=== PATIENT | male | born 1950 | race Caucasian/White ===

== ENCOUNTER 2021-08-21 14:27 | Inpatient (IN) | payer MEDICARE, MEDICAID, SELFPAY ==
[2021-08-21] VITALS (10 sets, daily range): BP systolic 118–149; BP diastolic 50–58; PULSE 75–91; RESP 17–26; TEMP 36.6–37.1; O2SAT 97–100; BMI 28.2
--- NOTE | ~2021-08-21 | XR_ITS ---
EXAMINATION: XR KNEE, LEFT CLINICAL INFORMATION: Evaluate for fracture. COMPARISON: None TECHNIQUE: Four views of the left knee. FINDINGS: No acute fractures or malalignment. Moderate tricompartmental degenerative osteoarthritis with joint space narrowing, subcortical sclerosis and osteophytes more notable in the medial and patellofemoral compartments. Small joint effusion with soft tissue swelling in the anterior and medial surface of the knee. No unexpected foreign bodies. XR/XR knee LT 4V IMPRESSION: No acute fractures or malalignment. Small joint effusion with soft tissue swelling in the medial and anterior surfaces of the knee. Moderate tricompartmental degenerative osteoarthritis.
--- NOTE | ~2021-08-21 | CT_ITS ---
EXAMINATION: HEAD CT WITHOUT CONTRAST CERVICAL SPINE CT WITHOUT CONTRAST CLINICAL INFORMATION: Fall, on blood thinners. COMPARISON: None. TECHNIQUE: Contiguous axial imaging of the head was performed without the administration of IV contrast. Axial multidetector volumetric images were also performed through the cervical spine without contrast. Multiplanar reconstructed images in coronal and sagittal orientations were submitted. DOSE: 1219 mGy-cm FINDINGS: HEAD: There is no evidence of acute intracranial hemorrhage or territorial infarction. No abnormal mass-effect or midline shift. No extra-axial fluid collections. [place] to white matter differentiation is well preserved. Proportional sulcal and ventricular prominence. Mild to moderate patchy periventricular and deep white matter hypodensities suggesting chronic microangiopathic changes. No acute fractures seen. There is complete opacification of the right maxillary sinus, prominent opacification of bilateral ethmoid and right sphenoid sinus. Mucosal thickening in the left sphenoid sinus. Partial opacification of the right mastoid air cells. There is opacification some of the left mastoid air cells. Limited evaluation of the facial bones, motion artifact degrading images. CERVICAL SPINE: Leftward curvature of the cervical spine. There is increased lordotic curvature of the cervical spine. Motion artifact degrading some of these images. There is mild anterolisthesis of C2 on C3. Within the limitation of motion degraded study, no obvious fracture is identified. Cervical spondylosis present, with the more prominent changes of severe disc degeneration at C2-C3, C3-C4, C4-C5 and C6-C7. Multilevel facet degeneration. Bilateral apical pleural parenchymal scarring. See chest CT for further details.. CT/CT cervical spine wo con IMPRESSION: 1. No CT evidence of acute intracranial hemorrhage or territorial infarction. 2. Extensive sinus disease, especially involving the right maxillary, ethmoid and right sphenoid sinuses. Partial opacification of mastoid air cells. 3. Limited evaluation of the visualized facial bone due to motion artifact. Dedicated facial bone CT for further evaluation as clinically warranted. 4. No CT evidence of acute cervical fracture. 5.Extensive cervical spondylosis. Multilevel severe disc degeneration.
--- NOTE | ~2021-08-21 | CT_ITS ---
EXAMINATION: CT CHEST, ABDOMEN AND PELVIS WITH CONTRAST. CLINICAL INFORMATION: Fall. COMPARISON: No pertinent prior studies are available for comparison. TECHNIQUE: Multidetector volumetric imaging was performed from the thoracic inlet through the pubic symphysis following administration of 85 mL of Omnipaque 350. Sagittal and coronal reformatted images were obtained on the technologist's workstation. This CT examination was performed using dose optimization techniques as appropriate, variously including the following: *Automated exposure control *Adjustment of mA and/or kV according to patient size (this includes techniques or standardized protocols for targeted exams where dose is matched to indication/reason for exam; i.e. extremities or head) *Use of iterative reconstruction technique DLP: 672 mGy-cm FINDINGS: CHEST: Lung: Emphysematous background with more prominent paraseptal blebs anteriorly in the left upper lobe (7:269). Bronchial wall thickening, tree-in-bud opacities, mucous plugging and scattered groundglass opacities predominantly in the lower lungs. For instance, a group of tree-in-bud nodularities in the right lung base on image 298 of series 7 and a few areas of groundglass opacities in the right middle lobe on image 315 of series 7. There are also bronchiectasis in the left lung base, for instance image 381 of series 7. Scattered calcified granulomas. Biapical subpleural thickening/scarring more notable in the anterior right upper lobe where there is a subpleural nodularity that measures up to 1.2 cm in thickness (7:88). The central airways are patent. Mediastinum: Normal heart size. No pericardial effusion. No mediastinal or hilar lymphadenopathy. Normal appearance of the thyroid gland. No mediastinal hematoma. Pericardium/Pleura: No pleural effusion or pneumothorax. Chest Wall/Axilla: No chest wall mass or axillary lymphadenopathy by size criteria. ABDOMEN/PELVIS: Peritoneal Space: No free air or free fluid. Liver, Gallbladder, Biliary Tree: The liver is normal in size, shape, and attenuation. No focal hepatic lesion or biliary ductal dilatation is present. The gallbladder is unremarkable with no evidence of radiopaque gallstones, gallbladder wall thickening, or obvious pericholecystic inflammatory changes. Pancreas: Unremarkable. Spleen: Unremarkable. Adrenal Glands: Unremarkable. Kidneys and Ureters: The kidneys are normal in size, shape, and attenuation. No hydronephrosis, hydroureter, or calculi seen. No perinephric stranding. Bladder: Unremarkable. Gastrointestinal Tract: Moderate size hiatal hernia with circumferential thickening of the lower esophagus suggesting some degree of reflux esophagitis. There are a few prominent lymph nodes surrounding the hiatal hernia. The stomach and the small bowel are nondilated. Normal appendix. Sigmoid diverticulosis but no evidence of acute diverticulitis. No bowel obstruction. Abdominal Wall: Small bilateral fat-containing inguinal hernias and small fat-containing umbilical hernia. Lymphovascular Structures: No lymphadenopathy by size criteria. The aorta is unremarkable except for scattered atherosclerotic disease. Pelvic Viscera: Prostatomegaly. Osseus Structures: No acute or aggressive osseous findings. Thoracolumbar spondylosis. Nonaggressive appearing sclerotic lesion in the left acetabulum (14:564) likely representing a bone island. CT/CT abdomen pelvis w con IMPRESSION: 1. No acute traumatic sequela in the chest, abdomen or pelvis. 2. Bronchial wall thickening, bronchiectasis, mucus plugging, tree-in-bud opacities and scattered groundglass opacities in the lungs suggesting an infectious or inflammatory process of the small airways. Recommend a short-term follow-up to ensure stability or resolution of several of these nodules. 3. Background of emphysematous changes. 4. Moderate size hiatal hernia with circumferential lower esophageal wall thickening and a few prominent periesophageal/perigastric lymph nodes. These findings are likely related with reflux esophagitis, however if indicated correlation with an upper endoscopy could be obtained to rule out underlying lesions. 5. Sigmoid diverticulosis but no evidence of acute diverticulitis. 6. Prostatomegaly.
--- NOTE | ~2021-08-21 | XR_ITS ---
EXAMINATION: X-RAY RIGHT FOREARM X-RAY RIGHT HAND CLINICAL INFORMATION: Evaluate for fracture. COMPARISON: None. TECHNIQUE: 2 views of the right forearm and 3 views of the right hand were obtained. FINDINGS: Right forearm: There is a comminuted distal ulnar fracture with approximately 0.8 cm of medial displacement of the distal fractured fragment and 1.6 cm of impaction. There is mild volar angulation. No other fractures. Joint alignment is maintained. Osteophytes are noted in the articulations of the elbow. There is surrounding soft tissue swelling and scattered vascular calcifications. Right wrist: Redemonstration of a distal ulnar fracture. No other injuries. 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 There is diffuse soft tissue swelling. XR/XR hand RT 2V IMPRESSION: Comminuted, displaced and impacted distal ulnar fracture as above.
--- NOTE | ~2021-08-21 | XR_ITS ---
EXAMINATION: X-RAY RIGHT FOREARM X-RAY RIGHT HAND CLINICAL INFORMATION: Evaluate for fracture. COMPARISON: None. TECHNIQUE: 2 views of the right forearm and 3 views of the right hand were obtained. FINDINGS: Right forearm: There is a comminuted distal ulnar fracture with approximately 0.8 cm of medial displacement of the distal fractured fragment and 1.6 cm of impaction. There is mild volar angulation. No other fractures. Joint alignment is maintained. Osteophytes are noted in the articulations of the elbow. There is surrounding soft tissue swelling and scattered vascular calcifications. Right wrist: Redemonstration of a distal ulnar fracture. No other injuries. 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 There is diffuse soft tissue swelling. XR/XR forearm RT 2V IMPRESSION: Comminuted, displaced and impacted distal ulnar fracture as above.
--- NOTE | 2021-08-21 15:11 | ECG_ITS ---
Test Reason : FALL Blood Pressure : / mmHG Vent. Rate : 086 BPM Atrial Rate : 086 BPM P-R Int : 162 ms QRS Dur : 140 ms QT Int : 404 ms P-R-T Axes : 047 -39 056 degrees QTc Int : 483 ms Normal sinus rhythm Left axis deviation Right bundle branch block Minimal voltage criteria for LVH, may be normal variant ( R in aVL ) Abnormal ECG No previous ECGs available Referred By: Generic ED Physician Electronically Signed By:VANCE VILLEDA MD
[2021-08-21 15:54] LABS: MANUAL DIFF FLAG NO
[2021-08-21 16:00] LABS: INTERNATIONAL NORM RATIO 1.2 (0.9-1.1); Prothrombin Time 13.2 SEC (9.9-13.0)
[2021-08-21 16:04] LABS: Basophils Absolute Auto 0.1 X10*3/uL (0.0-0.2); Basophils Percent Auto 1.2 % (0-2); Eosinophils Percent Auto 12.9 % (0-4); Imm Gran Abs Auto 0.06 X10*3/uL (0.00-0.03); Imm Gran Pct Auto 0.8 % (0.0-0.4); Lymphocytes Absolute Auto 1.1 X10*3/uL (1.2-4.9); Lymphocytes Percent Auto 14.1 % (20-40); Mean Corpuscular HGB Conc 24.6 g/dl (31.0-36.0); Mean Corpuscular Hemoglobin 14.9 pg (27.0-33.0); Mean Platelet Volume 8.6 fL (9.4-12.4); Monocytes Absolute Auto 0.9 X10*3/uL (0.1-1.2); Monocytes Percent Auto 11.7 % (2-11); NRBC Pct Auto 0.7 /100WBC (0.0-0.2); Neutrophils Absolute Auto 4.6 x10*3/uL (2.0-8.3); Neutrophils Percent Auto 59.3 % (45-73); Platelet Count 583 X10*3/uL (160-400); Red Blood Count 3.43 X10*6/uL (4.60-5.80); Red Cell Distribution Width 21.6 % (11.0-16.0); White Blood Count 7.7 X10*3/uL (4.8-10.8)
[2021-08-21 16:07] LABS: Anion Gap 12 (12-20); Blood Urea Nitrogen 11 mg/dL (9-16); Carbon Dioxide 28 mmol/L (22-29); Chloride 103 mmol/L (96-108); Creatinine Clr Calc Pharmacy 72.4; Estimated Glomerular Filt Rate > 60; Glucose Random 106 mg/dL (60-115); Potassium 4.8 mmol/L (3.3-5.1); Sodium 138 mmol/L (135-145)
[2021-08-21 16:13] LABS: Mean Corpuscular Volume 60.3 fL (80.0-98.0)
[2021-08-21 16:14] LABS: Hemoglobin 5.1 g/dl (14.0-18.0)
[2021-08-21 16:15] LABS: Hematocrit 20.7 % (42.0-52.0)
--- NOTE | 2021-08-21 16:50 | PC.NURSE ---
extreme swelling and tenderness left wrist. painful movement. daughter states pt has opiate dependance. pt denies. states hecan't remember all events of fall. may have been on floor for a little while. is tachipnic, pale, [place]. axox3.
[2021-08-21 16:51] LABS: OBS Int Ctl Valid YES; OBS1 NEGATIVE (NEGATIVE)
--- NOTE | 2021-08-21 16:55 | ED.GENADULT ---
HPI - General Adult General Chief complaint: Fall Stated complaint: Fall/r arm pain Time Seen by Provider: 08/21/21 16:19 Source: patient Mode of arrival: ambulatory Limitations: no limitations History of Present Illness HPI narrative: 70-year-old male with past medical history of opiate abuse, atrial fibrillation, and CHF presents to ED for fall. Patient states he tripped and fell Friday and since then has had right arm pain. Patient denies any loss of consciousness. Daughter states patient Eliquis. She states patient at times could be noncompliant with his medication by her mother tries to make patient take his meds Related Data Allergies Allergy/AdvReac Type Severity Reaction Status Date / Time No Known Allergies Allergy Unverified 03/02/20 14:56 Review of Systems Review of Systems: Fall right arm pain Yes all other systems are reviewed and are negative [facility] Social History Social History Alcohol intake: former Patient Tobacco Use Status: Never used Tobacco Use of substances other than those prescribed or required for medical reasons: Yes Substance Use Type: Opiates Advance Directives: Yes Advance Directives on File: Yes Advance Directives Date on File: 08/21/21 Physical Exam ED Vital Signs: Vital Signs - 24 hr 08/21/21 15:07 08/21/21 16:34 08/21/21 18:04 Temperature 98.4 F 98.7 F 98.2 F Pulse Rate 91 84 88 Respiratory Rate 18 18 26 H Blood Pressure 130/51 L 149/58 H 136/51 L Pulse Oximetry 97 100 100 08/21/21 18:15 Temperature 98.2 F Pulse Rate 88 Respiratory Rate 26 H Blood Pressure 136/51 L Pulse Oximetry BMI result Body Mass Index 28.2 Const General: cooperative, healthy appearing, comfortable, no acute distress, well developed and alert Orientation/consciousness: oriented to time and patient oriented x3 HENMT Head: Yes normal to inspection, Yes No palpable skull fracture present, Yes normocephalic, Yes atraumatic and No abrasion Eyes General: appearance normal, both eyes and all related structures Neck Neck: Yes normal visual inspection, Yes full ROM, Yes no lymphadenopathy, Yes no meningeal signs, Yes trachea midline, Yes supple, No anterior neck swelling and No tender Chest Chest palpation & inspection: normal inspection of the chest and normal palpation of entire chest wall Resp Effort & Inspection: normal respiratory effort and able to speak in complete sentences Auscultation: clear to auscultation bilaterally Cardio Jugular venous distension: no JVD Heart sounds: S1 normal heart sound present and S2 normal heart sound present GI Inspection: Yes normal to inspection and No abdominal wall ecchymosis Palpation (GI): Soft to palpation, not firm, nontender, no guarding and not rigid General: No CVA tenderness and Yes no CVA tenderness Back/Spine/Pelvis Back: no CVA tenderness, No CVA tenderness and No back tenderness Skin General skin exam: no rashes or lesions noted and elasticity normal Neuro General: oriented to time, patient oriented x3, gait normal, no meningeal signs and CN's II-XI intact bilaterally Cranial nerves: Yes CN's II-XII intact bilaterally Extrem General: Yes normal to inspection and Yes full ROM Elbow/forearm/wrist images: 1. Positive for tenderness on palpation with slight ecchymosis. Motor exam limited due to pain. Skin is soft and not. Neuro and vascular exam Psych Appearance: grossly normal, well kempt and not disheveled Course Course Course Narrative: Initial labs show hemoglobin of less than 6. Rectal exam negative for black stool, melena, or bright red blood. Type and screen and imaging ordered to rule out any brain bleed, neck fracture, or bleeding in chest/Abdomen. Reevaluation(s) Reevaluation #1: Head CT, cervical spine came back normal. Split ordered for right ulnar fracture. Patient given morphine for pain. Waiting for results of chest CT and abdominal CT. Patient signed consent for blood. Patient presently receiving 2 units of blood. Lasix ordered to be given between red blood cells to prevent fluid overload due to history of CHF. Right hand wrist forearm x-ray shows ulnar came mediated and impacted fracture which is about 4 days old. Patient fell 4 days ago. Case signed out to Dr. Berry. Head CT, cervical spine CT came back normal. PEnding chest/abdomen CT. Paste report from last year admission was received and shows that his hemoglobin hematocrit last year was 8.0/29. EKG negative. Case presented to hospitalist/Dr. Medina for possible admission. Time: 19:27 Medical Decision Making MDM Narrative Medical decision making narrative: Symptomatic anemia. Possible GI Lab Data Result diagrams: 08/21/21 15:38 08/21/21 15:38 Labs: Lab Results 08/21/21 08/21/21 08/21/21 Range/Units 15:38 15:38 15:38 WBC 7.7 (4.8-10.8) X10*3/uL RBC 3.43 L (4.60-5.80) X10*6/uL Hgb 5.1 L* (14.0-18.0) g/dl Hct 20.7 L* (42.0-52.0) % MCV 60.3 L (80.0-98.0) fL MCH 14.9 L (27.0-33.0) pg MCHC 24.6 L (31.0-36.0) g/dl RDW 21.6 H (11.0-16.0) % Plt Count 583 H (160-400) X10*3/uL MPV 8.6 L (9.4-12.4) fL Immature Gran % (Auto) 0.8 H (0.0-0.4) % Neut % (Auto) 59.3 (45-73) % Lymph % (Auto) 14.1 L (20-40) % [place] % (Auto) 11.7 H (2-11) % Eos % (Auto) 12.9 H (0-4) % Baso % (Auto) 1.2 (0-2) % Lymph # (Auto) 1.1 L (1.2-4.9) X10*3/uL [place] # (Auto) 0.9 (0.1-1.2) X10*3/uL Eos # (Auto) 1.0 H (0.0-0.4) X10*3/uL Baso # (Auto) 0.1 (0.0-0.2) X10*3/uL Abs Immat Gran (auto) 0.06 H (0.00-0.03) X10*3/uL Absolute Neuts (auto) 4.6 (2.0-8.3) x10*3/uL Absolute Nucleated RBC 0.050 H (0.0-0.012) X10*3/uL Nucleated RBC % (auto) 0.7 H (0.0-0.2) /100WBC PT 13.2 H (9.9-13.0) SEC INR 1.2 H (0.9-1.1) APTT (24.1-38.0) SEC Sodium 138 (135-145) mmol/L Potassium 4.8 (3.3-5.1) mmol/L Chloride 103 (96-108) mmol/L Carbon Dioxide 28 (22-29) mmol/L Anion Gap 12 (12-20) BUN 11 (9-16) mg/dL Creatinine 0.94 (0.5-1.4) mg/dL Estim Creat Clear Calc 72.4 Estimated GFR > 60 Random Glucose 106 (60-115) mg/dL Calcium 9.0 (8.4-10.2) mg/dL Stool Occult Blood (NEGATIVE) Blood Type Antibody Screen Crossmatch 08/21/21 08/21/21 08/21/21 Range/Units 16:45 16:45 16:57 WBC (4.8-10.8) X10*3/uL RBC (4.60-5.80) X10*6/uL Hgb (14.0-18.0) g/dl Hct (42.0-52.0) % MCV (80.0-98.0) fL MCH (27.0-33.0) pg MCHC (31.0-36.0) g/dl RDW (11.0-16.0) % Plt Count (160-400) X10*3/uL MPV (9.4-12.4) fL Immature Gran % (Auto) (0.0-0.4) % Neut % (Auto) (45-73) % Lymph % (Auto) (20-40) % [place] % (Auto) (2-11) % Eos % (Auto) (0-4) % Baso % (Auto) (0-2) % Lymph # (Auto) (1.2-4.9) X10*3/uL [place] # (Auto) (0.1-1.2) X10*3/uL Eos # (Auto) (0.0-0.4) X10*3/uL Baso # (Auto) (0.0-0.2) X10*3/uL Abs Immat Gran (auto) (0.00-0.03) X10*3/uL Absolute Neuts (auto) (2.0-8.3) x10*3/uL Absolute Nucleated RBC (0.0-0.012) X10*3/uL Nucleated RBC % (auto) (0.0-0.2) /100WBC PT (9.9-13.0) SEC INR (0.9-1.1) APTT 34.5 (24.1-38.0) SEC Sodium (135-145) mmol/L Potassium (3.3-5.1) mmol/L Chloride (96-108) mmol/L Carbon Dioxide (22-29) mmol/L Anion Gap (12-20) BUN (9-16) mg/dL Creatinine (0.5-1.4) mg/dL Estim Creat Clear Calc Estimated GFR Random Glucose (60-115) mg/dL Calcium (8.4-10.2) mg/dL Stool Occult Blood NEGATIVE (NEGATIVE) Blood Type O Positive Antibody Screen NEGATIVE Crossmatch See Detail ECG Data Interpretation: Normal sinus rhythm. Reticular 86. Appearance of the 162. QRS 140. QTC 483. Negative STEMI Critical Care Time Critical Care Time Critical Care Time: Yes Total Critical Care Time: 60 Attestation: Type and screen ordered. Sign consent for blood transfusion imaging ordered. Case presented to hospitalist for admission if CT scan normal. Dr. Berry will follow up with GI. Discharge Plan Discharge Clinical Impression: Fracture of right ulna, Symptomatic anemia Patient Disposition: Still a Patient
[2021-08-21] MEDS: Morphine Sulfate 4 MG/ML CARTRIDGE IVPUSH ×2 (17:06→18:20)
[2021-08-21] MEDS: 0.9 % Sodium Chloride 1,000 ML 999 ML IV (17:09)
[2021-08-21 17:39] LABS: Partial Thromboplastin Time 34.5 SEC (24.1-38.0)
[2021-08-21] MEDS: iohexoL 350 MG/ML 100 ML INFUS..BTL IV (17:53)
[2021-08-21] MEDS: Furosemide 20 MG/2 ML VIAL IVPUSH (19:33)
--- NOTE | 2021-08-21 19:37 | PC.NURSE ---
Blood infused w/o difficulty, VS obtained. pt medicated with lasix. pt remains alert, respirations easy, n/l. skin w/d.
[2021-08-21] MEDS: HYDROmorphone HCl 0.5 MG/0.5 ML SYRINGE IVPUSH (20:02)
--- NOTE | 2021-08-21 20:04 | PC.NURSE ---
pt medicated for pain to right hand 02/23.
--- NOTE | 2021-08-21 22:10 | PHA.MEDREC ---
Pharmacy Consult ? Medication Reconciliation Pharmacy has completed the medication reconciliation. PATIENT UNSURE OF HIS MEDS; SAYS HIS DAUGHTER LAYS THEM OUT FOR HIM. PATIENT'S DAUGHTER CANNOT VERIFY HIS METOPROLOL DOSE; WILL FOLLOW UP WITH HIS MD IN THE MORNING.
--- NOTE | 2021-08-21 22:15 | PC.NURSE ---
hospitalist in room for eval. pt was medicated for pain. pt resting in stretcher in nad. pt awaiting for room assignment.
--- NOTE | 2021-08-21 22:16 | P.HPHOSP_ITS ---
History of Present Illness Date of Service: 08/21/21 Chief Complaint: fall, wrist pain 70-year-old male with past medical history of CHF, AFib, hypertension,who presents to the hospital with complaints fall and wrist pain. Patient reports that he was jumping on his bed when he bounced off fell to the floor and hurt his right arm about 2 days ago. His ex- at bedside reports that he is very stubborn and is not allowed to come to the hospital on his own today were his pain became very severe. while in the ED workup revealed anemia with hemoglobin of 5.1. Patient denies any melena, no hematochezia, no hematemesis and no hemoptysis. Patient denies any abdominal pain nausea or vomiting, no diarrhea constipation, no urinary symptoms and no lower extremity edema. Patient being ordered 2 units of PRBC and will be admitted for further Management Review of Systems Review of Systems: Yes all other systems are reviewed and are negative [facility] Medical History (Updated 08/22/21 @ 07:13 by Antonio Alexander MD) Afib CHF (congestive heart failure) Family History (Updated 08/22/21 @ 07:14 by Antonio Alexander MD) Brother Pancreatic cancer Other No family history of coronary artery disease Surgical History (Updated 08/22/21 @ 07:13 by Antonio Alexander MD) No pertinent past surgical history Social History Alcohol intake: former Patient Tobacco Use Status: Never used Tobacco Use of substances other than those prescribed or required for medical reasons: Yes Substance Use Type: Opiates Advance Directives: Yes Advance Directives on File: Yes Advance Directives Date on File: 08/21/21 Meds Allergies Allergy/AdvReac Type Severity Reaction Status Date / Time No Known Allergies Allergy Unverified 03/02/20 14:56 Active Medications: Current Medications Acetaminophen (Acetaminophen 325 Mg Tablet) 650 mg PO Q6H PRN PRN Reason: Pain, Mild (Pain Scale 1-3) Docusate Sodium (Docusate Sodium 100 Mg Capsule) 100 mg PO DAILY PRN PRN Reason: Constipation Ondansetron HCl (Ondansetron Hcl 4 Mg/2 Ml Vial) 4 mg IVPUSH Q8H PRN PRN Reason: Nausea and Vomiting Sodium Chloride (0.9 % Sodium Chloride Flush 3 Ml Syringe) 3 ml IVFLUSH QSHIFT [facility] Home Medications Medication Instructions Recorded Confirmed Last Taken Type apixaban 5 mg tablet (Eliquis) 1 tab PO BID 08/21/21 08/21/21 Unknown History fluticasone propionate 110 1 puff PO BID 08/21/21 08/21/21 Unknown History mcg/actuation HFA aerosol inhaler (Flovent HFA) furosemide 40 mg tablet 1 tab PO DAILY 08/21/21 08/21/21 Unknown History lisinopril 5 mg tablet 1 tab PO DAILY 08/21/21 08/21/21 Unknown History metoprolol succinate 50 mg 50 mg PO DAILY 08/21/21 08/21/21 Unknown History tablet,extended release 24 hr Physical Exam Vital Signs and Narrative: Vital Signs: Last Vital Signs Temp 98 F 08/21/21 19:41 Pulse 76 08/21/21 20:44 Resp 17 08/21/21 20:44 BP 128/53 L 08/21/21 20:44 Pulse Ox 100 08/21/21 20:44 BMI result Body Mass Index 28.2 Const: General: cooperative and no acute distress Orie ntation/consciousness: patient oriented x3 Eyes: General: appearance normal, both eyes and all related structures Pupils: Equal, round and reactive pupils present Resp: Effort & Inspection: normal respiratory effort Auscultation: clear to auscultation bilaterally Cardio: Rate: regular rate Rhythm: regular rhythm GI: Palpation (GI): Soft to palpation Auscultation: normal bowel sounds Skin: General skin exam: no rashes or lesions noted Neuro: General: patient oriented x3 Cranial nerves: Yes Equal, round and reactive pupils present Cognition (Neuro): normal cognition Extrem: Other: left knee swollen, no erythema, no tenderness General: Yes normal to inspection and Yes no pedal edema Results Labs CBC and Chem 7: 08/22/21 06:50 08/21/21 15:38 Labs: Laboratory Results - last 24 hr 08/21/21 08/21/21 08/21/21 15:38 15:38 15:38 MCV 60.3 L MCH 14.9 L MCHC 24.6 L RDW 21.6 H Plt Count 583 H MPV 8.6 L Immature Gran % (Auto) 0.8 H Neut % (Auto) 59.3 Lymph % (Auto) 14.1 L [place] % (Auto) 11.7 H Eos % (Auto) 12.9 H Baso % (Auto) 1.2 Lymph # (Auto) 1.1 L [place] # (Auto) 0.9 Eos # (Auto) 1.0 H Baso # (Auto) 0.1 Abs Immat Gran (auto) 0.06 H Absolute Neuts (auto) 4.6 Absolute Nucleated RBC 0.050 H Nucleated RBC % (auto) 0.7 H PT 13.2 H INR 1.2 H APTT Anion Gap 12 Estim Creat Clear Calc 72.4 Estimated GFR > 60 Random Glucose 106 Calcium 9.0 Stool Occult Blood Blood Type Antibody Screen Crossmatch 08/21/21 08/21/21 08/21/21 16:45 16:45 16:57 MCV MCH MCHC RDW Plt Count MPV Immature Gran % (Auto) Neut % (Auto) Lymph % (Auto) [place] % (Auto) Eos % (Auto) Baso % (Auto) Lymph # (Auto) [place] # (Auto) Eos # (Auto) Baso # (Auto) Abs Immat Gran (auto) Absolute Neuts (auto) Absolute Nucleated RBC Nucleated RBC % (auto) PT INR APTT 34.5 Anion Gap Estim Creat Clear Calc Estimated GFR Random Glucose Calcium Stool Occult Blood NEGATIVE Blood Type O Positive Antibody Screen NEGATIVE Crossmatch See Detail Imaging Radiologist's Impressions: Impressions Forearm X-Ray 08/21/21 17:16 IMPRESSION: Comminuted, displaced and impacted distal ulnar fracture as above. Hand X-Ray 08/21/21 17:16 IMPRESSION: Comminuted, displaced and impacted distal ulnar fracture as above. Knee X-Ray 08/21/21 17:16 IMPRESSION: No acute fractures or malalignment. Small joint effusion with soft tissue swelling in the medial and anterior surfaces of the knee. Moderate tricompartmental degenerative osteoarthritis. Abdomen/Pelvis CT 08/21/21 18:08 IMPRESSION: 1. No acute traumatic sequela in the chest, abdomen or pelvis. 2. Bronchial wall thickening, bronchiectasis, mucus plugging, tree-in-bud opacities and scattered groundglass opacities in the lungs suggesting an infectious or inflammatory process of the small airways. Recommend a short-term follow-up to ensure stability or resolution of several of these nodules. 3. Background of emphysematous changes. 4. Moderate size hiatal hernia with circumferential lower esophageal wall thickening and a few prominent periesophageal/perigastric lymph nodes. These findings are likely related with reflux esophagitis, however if indicated correlation with an upper endoscopy could be obtained to rule out underlying lesions. 5. Sigmoid diverticulosis but no evidence of acute diverticulitis. 6. Prostatomegaly. Cervical Spine CT 08/21/21 18:08 IMPRESSION: 1. No CT evidence of acute intracranial hemorrhage or territorial infarction. 2. Extensive sinus disease, especially involving the right maxillary, ethmoid and right sphenoid sinuses. Partial opacification of mastoid air cells. 3. Limited evaluation of the visualized facial bone due to motion artifact. Dedicated facial bone CT for further evaluation as clinically warranted. 4. No CT evidence of acute cervical fracture. 5.Extensive cervical spondylosis. Multilevel severe disc degeneration. Chest CT 08/21/21 18:08 IMPRESSION: 1. No acute traumatic sequela in the chest, abdomen or pelvis. 2. Bronchial wall thickening, bronchiectasis, mucus plugging, tree-in-bud opacities and scattered groundglass opacities in the lungs suggesting an infectious or inflammatory process of the small airways. Recommend a short-term follow-up to ensure stability or resolution of several of these nodules. 3. Background of emphysematous changes. 4. Moderate size hiatal hernia with circumferential lower esophageal wall thickening and a few prominent periesophageal/perigastric lymph nodes. These findings are likely related with reflux esophagitis, however if indicated correlation with an upper endoscopy could be obtained to rule out underlying lesions. 5. Sigmoid diverticulosis but no evidence of acute diverticulitis. 6. Prostatomegaly. Head CT 08/21/21 18:08 IMPRESSION: 1. No CT evidence of acute intracranial hemorrhage or territorial infarction. 2. Extensive sinus disease, especially involving the right maxillary, ethmoid and right sphenoid sinuses. Partial opacification of mastoid air cells. 3. Limited evaluation of the visualized facial bone due to motion artifact. Dedicated facial bone CT for further evaluation as clinically warranted. 4. No CT evidence of acute cervical fracture. 5.Extensive cervical spondylosis. Multilevel severe disc degeneration. Assessment and Plan (1) Fracture of right ulna: Status: Acute (2) Severe anemia: Status: Acute Plan 70-year-old male with past medical history of CHF, AFib who presents to the hospital found to have a hemoglobin of 5.1 # microcytic anemia - no previous for comparison - hemoglobin of 5.1 - stool occult negative - denies any history of melena, hematochezia, no hemoptysis or hematemesis - will obtain B12, folic acid, haptoglobin, and will consult Hematology- Oncology - transfuse 2 units, follow CBC - hold Eliquis # fracture of right ulna - consult orthopedic - pain control # CHF - not in exacerbation - continue Lasix # hypertension - stable - continue lisinopril # AFib - rate controlled - continue metoprolol, hold Eliquis in the setting of anemia until further evaluation DVT prophylaxis: SCDs Quality Stroke Does the patient have a stroke diagnosis?: No VTE Prior VTE?: No VTE Risk Level:: Medical - moderate - high VTE Device Contraindication: Treatment Not Indicated VTE Drug Contraindication: N/A - Med Ordered
[2021-08-21 22:47] LABS: COVID-19 Test Negative (Negative)
--- NOTE | 2021-08-21 23:08 | PC.NURSE ---
VS OBTAINED. PT ON MONITOR WITH HR 90. PT IN nad AND AWAITING FOR HOSPITALIST ORDERS.
[2021-08-22] VITALS (14 sets, daily range): BP systolic 115–141; BP diastolic 52–76; PULSE 65–80; RESP 16–20; TEMP 36.3–36.9; O2SAT 93–100
[2021-08-22] MEDS: 0.9 % Sodium Chloride Flush 3 ML SYRINGE IVFLUSH ×3 (02:30→22:11)
--- NOTE | 2021-08-22 03:46 | PC.NURSE ---
PT TO ED OVERFLOW UNIT IN NO ACUTE DISTRESS. VITAL SIGNS STABLE. BP 141/60. HEART RATE 70'S. DENIES PAIN OR DISCOMFORT. WILL BE GIVING 2ND UNIT OF BLOOD. IV PATENT. PT DENIES DIZZINESS.
[2021-08-22 06:54] LABS: MANUAL DIFF FLAG NO
[2021-08-22 06:58] LABS: Basophils Absolute Auto 0.1 X10*3/uL (0.0-0.2); Basophils Percent Auto 1.3 % (0-2); Eosinophils Absolute Auto 1.1 X10*3/uL (0.0-0.4); Eosinophils Percent Auto 16.6 % (0-4); Hematocrit 23.6 % (42.0-52.0); Imm Gran Abs Auto 0.05 X10*3/uL (0.00-0.03); Imm Gran Pct Auto 0.8 % (0.0-0.4); Lymphocytes Percent Auto 15.1 % (20-40); Mean Corpuscular HGB Conc 26.7 g/dl (31.0-36.0); Mean Corpuscular Hemoglobin 17.5 pg (27.0-33.0); Mean Corpuscular Volume 65.4 fL (80.0-98.0); Mean Platelet Volume 8.2 fL (9.4-12.4); Monocytes Absolute Auto 0.9 X10*3/uL (0.1-1.2); Monocytes Percent Auto 13.5 % (2-11); NRBC Pct Auto 0.5 /100WBC (0.0-0.2); Neutrophils Absolute Auto 3.3 x10*3/uL (2.0-8.3); Neutrophils Percent Auto 52.7 % (45-73); Platelet Count 427 X10*3/uL (160-400); Red Blood Count 3.61 X10*6/uL (4.60-5.80); Red Cell Distribution Width 24.9 % (11.0-16.0); White Blood Count 6.3 X10*3/uL (4.8-10.8)
[2021-08-22 07:06] LABS: Hemoglobin 6.3 g/dl (14.0-18.0)
[2021-08-22 07:18] LABS: Anion Gap 12 (12-20); Blood Urea Nitrogen 9 mg/dL (9-16); Calcium 8.5 mg/dL (8.4-10.2); Carbon Dioxide 27 mmol/L (22-29); Chloride 105 mmol/L (96-108); Creatinine Clr Calc Pharmacy 79.1; Estimated Glomerular Filt Rate > 60; Glucose Random 96 mg/dL (60-115); Potassium 4.6 mmol/L (3.3-5.1); Sodium 139 mmol/L (135-145)
--- NOTE | 2021-08-22 07:45 | P.CONOP_ITS ---
History of Present Illness HPI Consult date: 08/22/21 Chief complaint: Anemia Narrative: Mr. Walsh is a 70 yo right hand dominant male who presented to the ER yesterday after sustaining a mechanical fall on 08/18/21. After the fall had had right forearm pain which continued prompting him to be evaluated at the ER. X- rays obtained reveal a distal ulnar fracture. The patient was placed in a splint and orthopedics was consulted for further evaluation and treatment. Of note, the patient has a past medical history significant for opioid abuse, a.fib on eliquis and CHF. Review of Systems Review of Systems: Yes all other systems are reviewed and are negative PMFSH Past Medical History Medical History (Updated 08/22/21 @ 07:13 by Antonio Alexander MD) Afib CHF (congestive heart failure) Family History Family History (Updated 08/22/21 @ 07:14 by Antonio Alexander MD) Brother Pancreatic cancer Other No family history of coronary artery disease Surgical History Surgical History (Updated 08/22/21 @ 07:13 by Antonio Alexander MD) No pertinent past surgical history Social History Social History Alcohol intake: former Patient Tobacco Use Status: Never used Tobacco Use of substances other than those prescribed or required for medical reasons: Yes Substance Use Type: Opiates Advance Directives: Yes Advance Directives on File: Yes Advance Directives Date on File: 08/21/21 Meds Allergies Allergy/AdvReac Type Severity Reaction Status Date / Time No Known Allergies Allergy Unverified 03/02/20 14:56 Active Medications: Current Medications Acetaminophen (Acetaminophen 325 Mg Tablet) 650 mg PO Q6H PRN PRN Reason: Pain, Mild (Pain Scale 1-3) Docusate Sodium (Docusate Sodium 100 Mg Capsule) 100 mg PO DAILY PRN PRN Reason: Constipation Fluticasone Propionate (Fluticasone Propionate 100 Mcg Blst.W.Dev) 1 puff INHALE RBID [facility] Last Admin: 08/22/21 07:30 Dose: Not Given Documented by: Furosemide (Furosemide 40 Mg Tablet) 40 mg PO DAILY [facility]; Protocol Lisinopril (Lisinopril 5 Mg Tablet) 5 mg PO DAILY [facility]; Protocol Metoprolol Succinate (Metoprolol Succinate Er 50 Mg Tab.Er.24h) 50 mg PO DAILY [facility]; Protocol Ondansetron HCl (Ondansetron Hcl 4 Mg/2 Ml Vial) 4 mg IVPUSH Q8H PRN PRN Reason: Nausea and Vomiting Sodium Chloride (0.9 % Sodium Chloride Flush 3 Ml Syringe) 3 ml IVFLUSH QSHIFT [facility] Last Admin: 08/22/21 02:30 Dose: 3 ml Documented by: Home Medications Medication Instructions Recorded Confirmed Last Taken Type apixaban 5 mg tablet (Eliquis) 1 tab PO BID 08/21/21 08/21/21 Unknown History fluticasone propionate 110 1 puff PO BID 08/21/21 08/21/21 Unknown History mcg/actuation HFA aerosol inhaler (Flovent HFA) furosemide 40 mg tablet 1 tab PO DAILY 08/21/21 08/21/21 Unknown History lisinopril 5 mg tablet 1 tab PO DAILY 08/21/21 08/21/21 Unknown History metoprolol succinate 50 mg 50 mg PO DAILY 08/21/21 08/21/21 Unknown History tablet,extended release 24 hr Physical Exam Vital Signs: Vital Signs: Last Vital Signs Temp 97.9 F 08/22/21 06:26 Pulse 66 08/22/21 06:26 Resp 16 08/22/21 06:26 BP 125/76 08/22/21 06:26 Pulse Ox 97 08/22/21 06:26 BMI result Body Mass Index 28.2 Extrem: Other: Right hand patient complains of slight decrease in sensation but has significant swelling along the dorsal aspect of the hand. Patient is able to flex, extend, abduct, and adduct all digits but is limited due to swelling. Capillary refill is brisk. Results Labs Result Diagrams: 08/22/21 06:50 08/22/21 06:50 Labs: Abnormal lab results 08/21/21 08/21/21 08/21/21 Range/Units 15:38 15:38 16:45 RBC 3.43 L (4.60-5.80) X10*6/uL Hgb 5.1 L* (14.0-18.0) g/dl Hct 20.7 L* (42.0-52.0) % MCV 60.3 L (80.0-98.0) fL MCH 14.9 L (27.0-33.0) pg MCHC 24.6 L (31.0-36.0) g/dl RDW 21.6 H (11.0-16.0) % Plt Count 583 H (160-400) X10*3/uL MPV 8.6 L (9.4-12.4) fL Immature Gran % (Auto) 0.8 H (0.0-0.4) % Lymph % (Auto) 14.1 L (20-40) % [place] % (Auto) 11.7 H (2-11) % Eos % (Auto) 12.9 H (0-4) % Lymph # (Auto) 1.1 L (1.2-4.9) X10*3/uL Eos # (Auto) 1.0 H (0.0-0.4) X10*3/uL Abs Immat Gran (auto) 0.06 H (0.00-0.03) X10*3/uL Absolute Nucleated RBC 0.050 H (0.0-0.012) X10*3/uL Nucleated RBC % (auto) 0.7 H (0.0-0.2) /100WBC PT 13.2 H (9.9-13.0) SEC INR 1.2 H (0.9-1.1) Crossmatch See Detail 08/22/21 Range/Units 06:50 RBC 3.61 L (4.60-5.80) X10*6/uL Hgb 6.3 L* D (14.0-18.0) g/dl Hct 23.6 L (42.0-52.0) % MCV 65.4 L D (80.0-98.0) fL MCH 17.5 L (27.0-33.0) pg MCHC 26.7 L (31.0-36.0) g/dl RDW 24.9 H (11.0-16.0) % Plt Count 427 H D (160-400) X10*3/uL MPV 8.2 L (9.4-12.4) fL Immature Gran % (Auto) 0.8 H (0.0-0.4) % Lymph % (Auto) 15.1 L (20-40) % [place] % (Auto) 13.5 H (2-11) % Eos % (Auto) 16.6 H (0-4) % Lymph # (Auto) 1.0 L (1.2-4.9) X10*3/uL Eos # (Auto) 1.1 H (0.0-0.4) X10*3/uL Abs Immat Gran (auto) 0.05 H (0.00-0.03) X10*3/uL Absolute Nucleated RBC 0.030 H (0.0-0.012) X10*3/uL Nucleated RBC % (auto) 0.5 H (0.0-0.2) /100WBC PT (9.9-13.0) SEC INR (0.9-1.1) Crossmatch H & H 08/21/21 08/22/21 Range/Units 15:38 06:50 Hgb 5.1 L* 6.3 L* D (14.0-18.0) g/dl Hct 20.7 L* 23.6 L (42.0-52.0) % Coagulation 08/21/21 Range/Units 15:38 INR 1.2 H (0.9-1.1) All other labs normal. Assessment and Plan (1) Fracture of right ulna: Status: Acute Plan Mr. Walsh is a 70 yo right hand dominant male who presented to the ER yesterday after sustaining a mechanical fall on 08/18/21. After the fall had had right forearm pain which continued prompting him to be evaluated at the ER. X- rays obtained reveal a distal ulnar fracture. The patient was placed in a splint and orthopedics was consulted for further evaluation and treatment. Of note, the patient has a past medical history significant for opioid abuse, a.fib on eliquis and CHF. X-rays are available for my review which again demonstrate the distal ulnar fracture on the right. Patient may followup with orthopedics outpatient. No surgical intervention is warranted at this time. Procedures Date of Service Date of Service: 08/22/21
[2021-08-22 07:50] LABS: Alanine Aminotransferase < 6 U/L (0-40); Alkaline Phosphatase 129 U/L (39-117); Aspartate Amino Transferase 12 U/L (5-37); Bilirubin Direct 0.5 mg/dL (0.0-0.5); Bilirubin Total 1.3 mg/dL (0.0-1.0); Total Protein 5.7 g/dL (6.5-8.0); Unsaturated Iron Binding 262 ug/dL
[2021-08-22 08:02] LABS: Iron 114 mcg/dL (45-160); Lactate Dehydrogenase 162 U/L (118-273); Percent Iron Saturation 30 % (15-50); Total Iron Binding Capacity 376 mcg/dL (228-428)
[2021-08-22 08:22] LABS: Ferritin 4 ng/mL (20-250)
[2021-08-22 08:53] LABS: Folate 3.4 ng/mL (> or = 4.0); Vitamin B12 738 pg/mL (200-900)
[2021-08-22] MEDS: Furosemide 40 MG TABLET PO (09:18)
[2021-08-22] MEDS: lisinopriL 5 MG TABLET PO (09:18)
--- NOTE | 2021-08-22 10:30 | MHC.CM.PN ---
CM ATTEMPTED TO MEET WITH PT X 2, PT SLEEPING. CM CALLED PTS DAUGHTER/HCP, MARIAH ALLEN ([phone]) WHO REPORTS THE PT LIVES ALONE AND AT BASELINE IS INDEPENDENT WITH CARE. SHE REPORTS HE HAS NO SERVICES AND ONLY HAS A WALKER HE BORROWED FROM HIS MOTHER SHE REPORTS THE PT GO[place] [facility] [place] PRIMARY C[place], SHE IS UNSURE OF PCP'S NAME PT HAS A HCP AND POA ON FILE MARIAH REPORTS THE PT IS A BUT DOES NOT USE ANY OF THE SERVICES SHE REPORTS HE IS NOT COVID-19 VACCINATED IMM DELIVERED AND A COPY WAS EMAILED TO HER AT [email or web address] ANOTHER COPY WAS SENT TO [facility] CURRENTLY THE DC PLAN IS TBD PENDING PT AND OT EVALS MARIAH REPORTS SHE FEELS HE NEEDS TO GO TO STR SHE REPORTS HE DOES HAVE A HX OF SUBSTANCE ABUSE AND TENDS TO GET ANTSY AND WANT TO AMA SHE ASKS THAT HE NOT BE ALLOWED TO DO SO. ÁNGEL EXPLAINED PT WOULD NEED A COMPETENCY EVAL IN ORDER FOR HIS HCP TO BE INVOKED, AND IF HE WAS DEEMED COMPETENT THE HOSPITAL WOULD NOT BE ABLE TO STOP HIM FROM LEAVING AMA. SHE REPORTS UNDERSTANDING. MARIAH REQUESTED REFERRALS BE SENT TO ANY SNFS TAKING UNVACCINATED PTS SHE ALSO REPORTS SHE LIVES TWO HOURS AWAY BUT WILL BE DOWN EVERY COUPLE OF DAYS TO CHECK ON PT/HOME SHE ALSO REPORTS SHE WILL DRIVE DOWN IMMEDIATELY IF SHE IS NEEDED IN ANY WAY
--- NOTE | 2021-08-22 11:40 | PC.NURSE ---
Pt received 2 units of blood overnight. Hgb recheck 6.3. Provider aware and ordered 3rd unit which is infusing with no issues. Pt resting in hospital bed. Anxious to go upstairs. c/o pain to the left wrist. Awaiting pain med orders from provider who is aware. Pt is a/o. uses urinal appropriatly. sensation, motor, and circulation intact to left hand. Belongings and callbell within reach.
--- NOTE | 2021-08-22 12:26 | HO.PM.IMPN ---
Subjective Subjective Date of Service: 08/22/21 Interval History: Patient offers no complaints of heartburn acidity, no hematemesis, no melena no weight loss no recent use of aspirin NSAIDs, no change in diet denies smoking, no alcohol, receiving 30 unit of packed RBC, denies shortness of breath or chest discomfort. Review of Systems Review of Systems: Yes all other systems are reviewed and are negative Physical Exam Vital Signs: Vital Signs: Last Vital Signs Temp 97.3 F 08/22/21 10:35 Pulse 78 08/22/21 10:35 Resp 18 08/22/21 10:35 BP 137/63 08/22/21 10:35 Pulse Ox 97 08/22/21 09:17 BMI result Body Mass Index 28.2 Const: Other: General resting comfortably, no acute distress. Neck supple no JVD. CVS regular rate rhythm, Respiratory lungs clear to auscultation, no respiratory distress, no wheeze, no rhonchi. Gastrointestinal abdomen soft, nontender, bowel sounds audible Extremities right arm in splint Neuro nonfocal Skin no rash Psych appropriate affect Objective Data Active Medications Acetaminophen (Acetaminophen 325 Mg Tablet) 650 mg PO Q6H PRN PRN Reason: Pain, Mild (Pain Scale 1-3) Docusate Sodium (Docusate Sodium 100 Mg Capsule) 100 mg PO DAILY PRN PRN Reason: Constipation Fluticasone Propionate (Fluticasone Propionate 100 Mcg Blst.W.Dev) 1 puff INHALE RBID [facility] Last Admin: 08/22/21 07:30 Dose: Not Given Documented by: JAS Non-Admin Reason: Med Not Available Furosemide (Furosemide 40 Mg Tablet) 40 mg PO DAILY [facility]; Protocol Last Admin: 08/22/21 09:18 Dose: 40 mg Documented by: GHANSHYAM Lisinopril (Lisinopril 5 Mg Tablet) 5 mg PO DAILY [facility]; Protocol Last Admin: 08/22/21 09:18 Dose: 5 mg Documented by: GHANSHYAM Metoprolol Succinate (Metoprolol Succinate Er 50 Mg Tab.Er.24h) 50 mg PO DAILY [facility]; Protocol Ondansetron HCl (Ondansetron Hcl 4 Mg/2 Ml Vial) 4 mg IVPUSH Q8H PRN PRN Reason: Nausea and Vomiting Sodium Chloride (0.9 % Sodium Chloride Flush 3 Ml Syringe) 3 ml IVFLUSH QSHIFT [facility] Last Admin: 08/22/21 09:18 Dose: 3 ml Documented by: GHANSHYAM Labs CBC & Chem 7: 08/22/21 06:50 08/22/21 06:50 Labs: Laboratory Results - last 24 hr 08/21/21 08/21/21 08/21/21 15:38 15:38 15:38 MCV 60.3 L MCH 14.9 L MCHC 24.6 L RDW 21.6 H Plt Count 583 H MPV 8.6 L Immature Gran % (Auto) 0.8 H Neut % (Auto) 59.3 Lymph % (Auto) 14.1 L [place] % (Auto) 11.7 H Eos % (Auto) 12.9 H Baso % (Auto) 1.2 Lymph # (Auto) 1.1 L [place] # (Auto) 0.9 Eos # (Auto) 1.0 H Baso # (Auto) 0.1 Abs Immat Gran (auto) 0.06 H Absolute Neuts (auto) 4.6 Absolute Nucleated RBC 0.050 H Nucleated RBC % (auto) 0.7 H PT 13.2 H INR 1.2 H APTT Anion Gap 12 Estim Creat Clear Calc 72.4 Estimated GFR > 60 Random Glucose 106 Calcium 9.0 Iron TIBC % Saturation Unsat Iron Binding Ferritin Total Bilirubin Direct Bilirubin AST ALT Alkaline Phosphatase Lactate Dehydrogenase Total Protein Albumin Vitamin B12 Folate Stool Occult Blood COVID-19 (ELIUD) COVID-19 Clin Com Blood Type Antibody Screen Crossmatch 08/21/21 08/21/21 08/21/21 16:45 16:45 16:57 MCV MCH MCHC RDW Plt Count MPV Immature Gran % (Auto) Neut % (Auto) Lymph % (Auto) [place] % (Auto) Eos % (Auto) Baso % (Auto) Lymph # (Auto) [place] # (Auto) Eos # (Auto) Baso # (Auto) Abs Immat Gran (auto) Absolute Neuts (auto) Absolute Nucleated RBC Nucleated RBC % (auto) PT INR APTT 34.5 Anion Gap Estim Creat Clear Calc Estimated GFR Random Glucose Calcium Iron TIBC % Saturation Unsat Iron Binding Ferritin Total Bilirubin Direct Bilirubin AST ALT Alkaline Phosphatase Lactate Dehydrogenase Total Protein Albumin Vitamin B12 Folate Stool Occult Blood NEGATIVE COVID-19 (ELIUD) COVID-19 Clin Com Blood Type O Positive Antibody Screen NEGATIVE Crossmatch See Detail 08/21/21 08/21/21 08/22/21 22:21 22:51 06:50 MCV 65.4 L D MCH 17.5 L MCHC 26.7 L RDW 24.9 H Plt Count 427 H D MPV 8.2 L Immature Gran % (Auto) 0.8 H Neut % (Auto) 52.7 Lymph % (Auto) 15.1 L [place] % (Auto) 13.5 H Eos % (Auto) 16.6 H Baso % (Auto) 1.3 Lymph # (Auto) 1.0 L [place] # (Auto) 0.9 Eos # (Auto) 1.1 H Baso # (Auto) 0.1 Abs Immat Gran (auto) 0.05 H Absolute Neuts (auto) 3.3 Absolute Nucleated RBC 0.030 H Nucleated RBC % (auto) 0.5 H PT INR APTT Anion Gap Estim Creat Clear Calc Estimated GFR Random Glucose Calcium Iron TIBC % Saturation Unsat Iron Binding Ferritin Total Bilirubin Direct Bilirubin AST ALT Alkaline Phosphatase Lactate Dehydrogenase Total Protein Albumin Vitamin B12 738 Folate 3.4 L Stool Occult Blood COVID-19 (ELIUD) Negative COVID-[employer] [facility] See Note Blood Type Antibody Screen Crossmatch 08/22/21 06:50 MCV MCH MCHC RDW Plt Count MPV Immature Gran % (Auto) Neut % (Auto) Lymph % (Auto) [place] % (Auto) Eos % (Auto) Baso % (Auto) Lymph # (Auto) [place] # (Auto) Eos # (Auto) Baso # (Auto) Abs Immat Gran (auto) Absolute Neuts (auto) Absolute Nucleated RBC Nucleated RBC % (auto) PT INR APTT Anion Gap 12 Estim Creat Clear Calc 79.1 Estimated GFR > 60 Random Glucose 96 Calcium 8.5 Iron 114 TIBC 376 % Saturation 30 Unsat Iron Binding 262 Ferritin 4 L Total Bilirubin 1.3 H Direct Bilirubin 0.5 AST 12 ALT < 6 Alkaline Phosphatase 129 H Lactate Dehydrogenase 162 Total Protein 5.7 L Albumin 3.0 L Vitamin B12 Folate Stool Occult Blood COVID-19 (ELIUD) COVID-[employer] Com Blood Type Antibody Screen Crossmatch Assessment and Plan (1) Fracture of right ulna: Status: Acute (2) Severe anemia: Status: Acute Plan 70-year-old male with past medical history of CHF, AFib who presents to the hospital found to have a hemoglobin of 5.1 #? profound microcytic anemia no active GI bleed noted/question acute versus chronic since no prior CBCs available ? hemoglobin of 5.1, stool occult negative, patient denies melena, hematochezia, no hemoptysis or hematemesis, no melena Workup showed normal iron studies, low ferritin 4 B12 normal, low folic acid 3.4, less likely hemolysis , LDH 162, total bili close to normal, hepto pending Status post 3 units of packed RBC follow hematocrit Noted to have thickening of lower esophagus and stomach, consult GI for further workup ? Place on folic acid 1 mg daily, and hold Eliquis #? fracture of right ulna -? seen by orthopedic surgery they recommend medical management, continue pain management, on IV morphine and Tylenol, will add by mouth oxycodone # CHF no echo available question diastolic or systolic. -? not in exacerbation, continue Lasix #? hypertension -? stable BP continue lisinopril, Lasix and metoprolol 50 mg daily at home takes 75 mg of metoprolol, follow BP closely #?paroxysmal AFib -? now in normal sinus rhythm, rate controlled, continue metoprolol, hold Eliquis in the setting of anemia until further evaluation ?DVT prophylaxis: SCDs Quality Stroke Does the patient have a stroke diagnosis?: No VTE Prior VTE?: No VTE Risk Level:: Medical - moderate - high VTE Device Contraindication: Treatment Not Indicated VTE Drug Contraindication: N/A - Med Ordered
[2021-08-22] MEDS: Acetaminophen 325 MG TABLET 650 MG PO ×2 (12:30→19:14)
[2021-08-22] MEDS: Metoprolol Succinate ER 50 MG TAB.ER.24H PO (12:30)
--- NOTE | 2021-08-22 16:44 | PM.EVENT ---
Event Note Date of Service: 08/22/21 Event Note: GI consult dictated Significant anemia with low ferritin is c/w iron deficiency. He should have EGD and colonoscopy but will need to be off oral anticoagulation for 3 days prior to procedures. This can be arranged as an outpatient since there is no active bleeding and his last dose of Eliquis was last night per nursing. It could also be done on 08/24 if he remains an inpatient.
--- NOTE | 2021-08-22 20:01 | CONS_ITS ---
DATE OF SERVICE: 08/22/2021 REFERRING PHYSICIAN: Cali Edmonds MD REASON FOR CONSULTATION: Anemia. HISTORY OF PRESENT ILLNESS: The patient is a pleasant 70-year-old man who was admitted to the hospital on August 21 after presenting to the emergency room with wrist pain after a fall. He was evaluated in the emergency room and laboratory studies were done showing hematocrit of 20.7. The patient's last available hematocrit in August of last year was 29.2. The patient denies any rectal bleeding. He is a poor historian and is unsure of his medications or when they were taken last. He is on Eliquis for atrial fibrillation. Nursing reports this was last taken yesterday evening. He has no complaints of epigastric pain or reflux and denies any change in his bowel habits. He is not sure if he has undergone colonoscopy. Hemoccult testing was negative on admission. He has been transfused 3 units of packed red blood cells and has had no reported bleeding since admission. As part of his evaluation, imaging of the chest and abdomen was obtained and this is reported as showing a moderate-sized hiatal hernia with circumferential thickening of the lower esophagus suggesting reflux. Again, the patient denies any acid reflux symptoms. PAST MEDICAL HISTORY: 1. Atrial fibrillation. 2. Hypertension. 3. Congestive heart failure. 4. Recent fall with wrist fracture. CURRENT MEDICATIONS: Current medication list is reviewed in the chart. ALLERGIES: THERE ARE NONE REPORTED. FAMILY HISTORY: This is reviewed with the patient and is negative for GI malignancy by his report. SOCIAL HISTORY: He denies tobacco or alcohol use. He states he occasionally uses marijuana. REVIEW OF SYSTEMS: SKIN: No pruritus. HEENT: Negative. CARDIOPULMONARY: No shortness of breath or chest pain. GASTROINTESTINAL: As above. GENITOURINARY: Negative. NEUROPSYCHIATRIC: Negative. PHYSICAL EXAMINATION: GENERAL: Shows a pleasant male, in no acute distress. VITAL SIGNS: Reviewed in the electronic medical record and are stable. SKIN: Anicteric. HEENT: Shows no scleral icterus. NECK: Without lymphadenopathy or thyromegaly. LUNGS: Clear. HEART: Shows a regular rate and rhythm. S1, S2. No murmur. ABDOMEN: Soft without focal masses or tenderness. Bowel sounds are present. No organomegaly is noted. EXTREMITIES: Without edema. LABORATORY DATA: Reviewed. Iron studies show a saturation of 30% and a ferritin of 4. IMPRESSION: Anemia with microcytic indices and a ferritin of 4. This is consistent with iron deficiency and despite his negative occult blood testing, I would recommend further evaluation with upper GI endoscopy and colonoscopy unless this has been done more recently somewhere else. He will need to be off his anticoagulation for 3 days prior to the procedure. This can be arranged electively as outpatient following transfusion. Thanks for asking me to see him. I will follow him in the hospital with you. MD HARSHIL Del Real/OLIVIA / [phone]
[2021-08-23 04:00] VITALS: BP 151/69; PULSE 63; RESP 18; TEMP 36.7; O2SAT 92
[2021-08-23 06:22] LABS: Hematocrit 27.1 % (42.0-52.0); Hemoglobin 7.4 g/dl (14.0-18.0); Mean Corpuscular HGB Conc 27.3 g/dl (31.0-36.0); Mean Corpuscular Hemoglobin 18.8 pg (27.0-33.0); Mean Corpuscular Volume 68.8 fL (80.0-98.0); Mean Platelet Volume 8.8 fL (9.4-12.4); NRBC Pct Auto 0.6 /100WBC (0.0-0.2); Platelet Count 452 X10*3/uL (160-400); Red Blood Count 3.94 X10*6/uL (4.60-5.80); Red Cell Distribution Width 28.1 % (11.0-16.0); White Blood Count 6.6 X10*3/uL (4.8-10.8)
[2021-08-23 07:44] VITALS: BP 154/70; PULSE 64; RESP 19; TEMP 36.8; O2SAT 94
[2021-08-23] MEDS: Fluticasone Propionate 100 MCG BLST.W.DEV 1 PUFF INHALE (08:26)
[2021-08-23 08:28] VITALS: PULSE 67; RESP 18; O2SAT 93
[2021-08-23] MEDS: lisinopriL 5 MG TABLET PO (08:43)
[2021-08-23] MEDS: Metoprolol Succinate ER 50 MG TAB.ER.24H PO (08:43)
[2021-08-23] MEDS: Furosemide 40 MG TABLET PO (08:43)
[2021-08-23] MEDS: 0.9 % Sodium Chloride Flush 3 ML SYRINGE IVFLUSH (08:43)
[2021-08-23] MEDS: Acetaminophen 325 MG TABLET 650 MG PO (08:45)
[2021-08-23 12:00] VITALS: RESP 18
[2021-08-23 13:58] VITALS: PULSE 67
--- NOTE | 2021-08-23 14:33 | MHC.CM.PN ---
CASE MANAGEMENT MET WITH PATIENT TO REINTRODUCE THE IDEA OF SHORT TERM REHAB PATIENT DENIES THE NEED OR DESIRE TO TRANSFER TO REHAB HE STATES NOPE. I AM GONG HOME WHEN ASKED HOW PATIENT WILL TRANSFER HOME, HE TELLS THIS TEMPORARY HELP AGENCY REFERRAL CLERK THAT HE WILL MAKE A PHONE CALL ONCE THE RN REMOVES HIS IV.
--- NOTE | 2021-08-23 14:46 | PM.DS ---
DS: Providers Provider Date of Service: 08/23/21 Date of admission: 08/21/21 22:09 Date of discharge: 08/23/21 Primary care physician: Unknown Physician Consults: 08/21/21 22:04 Consult to Orthopedics Routine Consulting Provider: Carlos Hudson Reason for consultation: Ulnar fx Has provider been notified: No 08/22/21 11:44 Consult to Gastroenterology Routine Consulting Provider: Michael Pritchett Reason for consultation: anemia Has provider been notified: No DS: Diagnosis Discharge Diagnosis (1) Fracture of right ulna: Status: Acute (2) Severe anemia: Status: Acute DS: Summary Hospital Course Hospital Course: 70-year-old male with past medical history of CHF, AFib,? hypertension,who presents to the hospital with complaints fall and wrist pain.? Patient reports that he was jumping on his bed when he bounced off fell to the floor and hurt his right arm about 2 days ago.? His ex- at bedside reports that he is very stubborn and is not allowed to come to the hospital on his own today were his pain became very severe. ? while in the ED workup revealed anemia? with hemoglobin of 5.1. ? Patient denies any melena,? no hematochezia, no hematemesis and no hemoptysis. ? Patient denies any abdominal pain nausea or vomiting, no diarrhea constipation, no urinary symptoms and no lower extremity edema.? Hospital Course Patient admitted received 2 units of pack cells. Improvement in hemoglobin was noted. Consult was placed to GI; recommend outpatient EGD off of Eliquis. On the day of discharge, patient's hemoglobin is stable and he has adamantly wishing to be discharged. He was seen by Physical therapy who deemed him safe for home a would be discharged to follow-up with PCP in 2 weeks. Hold Eliquis until determined by PCP when EGD will be and can be adjusted as per outpatient setting Time Spent with Patient Time attestation: Total time spent providing and/or coordinating discharge services: Discharge coordination time: Greater than 30 minutes Quality: Stroke Does the patient have a stroke diagnosis?: No Physical Exam Vital Signs: Vital Signs: Last Vital Signs Temp 98.3 F 08/23/21 07:44 Pulse 67 08/23/21 13:58 Resp 18 08/23/21 12:00 BP 154/70 H 08/23/21 07:44 Pulse Ox 94 08/23/21 07:44 BMI result Body Mass Index 28.2 Const: Other: Awake alert oriented x3 no acute distress Resp: Other: Clear to auscultation bilaterally no rales rhonchi or wheezes Cardio: Other: No S4; positive S1-S2; no S3 murmurs rubs gallops GI: Other: Soft nontender nondistended with normoactive bowel sounds Neuro: Other: Cranial nerves 2-12 were grossly intact as tested. Motor is 5/5. Sensation intact. Gait steady. Cognition appropriate Extrem: Other: No edema bilaterally DS: Data Data Completed and Pending Labs on day of discharge: Laboratory Results - last 24 hr 08/23/21 05:31 WBC 6.6 RBC 3.94 L Hgb 7.4 L Hct 27.1 L MCV 68.8 L MCH 18.8 L MCHC 27.3 L RDW 28.1 H Plt Count 452 H MPV 8.8 L Absolute Nucleated RBC 0.040 H Nucleated RBC % (auto) 0.6 H Discharge Plan Discharge Patient Disposition: Home Health Service Discharge Diagnosis: sever anemia Referrals: Physician,Unknown J [Primary Care Provider] - 1 Week Discharge Medications: Continued furosemide 40 mg tablet 1 tab PO DAILY 0RF metoprolol succinate 50 mg tablet extended release 24 hr 50 mg PO DAILY 0RF Label Comments: MAY TAKE 75MG; WILL FOLLOW UP WITH MD IN THE AM lisinopril 5 mg tablet 1 tab PO DAILY 0RF Flovent HFA 110 mcg/actuation HFA aerosol inhaler 1 puff PO BID 0RF metoprolol succinate 25 mg tablet extended release 24 hr 1 tab PO DAILY 0RF Discontinued Eliquis 5 mg tablet 1 tab PO BID 0RF Discharge Orders: Discharge Order (Routine); Ordered 08/23/21 Ordered By: Beck Romano Diet: advance to usual diet Activity on Discharge: As tolerated Stand Alone Forms: Patient Portal Discharge page Care Plan Goals: Hold Eliquis due. Follow-up with GI to arrange upper endoscopy. Can restart Eliquis after endoscopy Health Concerns: He will need endoscopy. It follow-up with her PCP and hold Eliquis until told to resume Plan of Treatment: Outpatient EGD off of Eliquis Assessment: As per discharge summary
--- NOTE | 2021-08-23 15:08 | MHC.CM.PN ---
Addendum entered by Rita Li 08/23/21 15:38: Patient states that a friend is picking him up at 1700 out front. Patient reminded to follow up with gastroenterology and his pcp, for his anemia He is hungry and this verse writer contacted [facility] who is on the way up to take his order. Patient agrees to wait until after he eats to go down to front lobby RN aware Original Note: PATIENT DENIES NEED FOR ANY [facility]NA SERVICES HE IS AWARE TO FOLLOW UP WITH PCP FOR HIS ANEMIA AND POST-ACUTE CARE- DC ASSESSMENT
[2021-08-24 18:17] LABS: Haptoglobin 326 mg/dL (43-212)
== END 2021-08-23 18:05 | disposition home or self-care (01) | DRG 563 ==
LOC: HO.ED 21:57 → HO.EDOVER 22:22 → HO.S3 08-22 15:59
PROVIDERS: Hospitalist; Physician Assistant; Admitting Provider Internal Medicine; Emergency Provider Internal Medicine; Visit Provider Hospitalist
DX: S52.601A Unspecified fracture of lower end of right ulna, initial encounter for closed fracture (principal); W06.XXXA Fall from bed, initial encounter; F10.11 Alcohol abuse, in remission; D50.9 Iron deficiency anemia, unspecified; I11.0 Hypertensive heart disease with heart failure; I50.9 Heart failure, unspecified; I48.0 Paroxysmal atrial fibrillation; Z79.01 Long term (current) use of anticoagulants; Z79.899 Other long term (current) drug therapy
CPT/HCPCS: 36415; 36430; 70450; 71260; 72125; 73090; 73120; 73564; 74177; 80048; 80076; 82272; 82607; 82728; 82746; 83010; 83540; 83615; 85025; 85027; 85610; 85730; 86850; 86900; 86901; 86923; 87635; 93005; 94640; 96361; 96374; 96375; 96376; 97161; 99285; 99291; J1170; J1940; J2270; P9016; Q9967

== ENCOUNTER 2021-08-29 16:19 | Inpatient (IN) | payer MEDICARE, MEDICAID, SELFPAY ==
--- NOTE | ~2021-08-29 | CT_ITS ---
EXAMINATION: CT HEAD WITHOUT CONTRAST CLINICAL INFORMATION: Found unresponsive. COMPARISON: CT head and cervical spine dated from 08/21/2021. TECHNIQUE: Contiguous axial imaging was performed from the skull base to vertex without intravenous administration of contrast. This CT examination was performed using dose optimization techniques as appropriate, variously including the following: *Automated exposure control *Adjustment of mA and/or kV according to patient size (this includes techniques or standardized protocols for targeted exams where dose is matched to indication/reason for exam; i.e. extremities or head) *Use of iterative reconstruction technique DLP: 860 mGy-cm FINDINGS: There is no evidence of acute intracranial hemorrhage or edematous territorial infarction. Scattered hypoattenuation in the periventricular and deep white matter are consistent with moderate microangiopathy. Daly-white matter differentiation is preserved. Proportional prominence of the ventricles and sulcal spaces. No evidence for obstructive hydrocephalus. No abnormal mass effect or midline shift. No extra-axial fluid collections. No acute soft tissue or osseous abnormalities. Again noted extensive paranasal sinus disease with complete opacification of the right maxillary sinus, right sphenoidal sinus and right frontal sinus. There is also complete opacification of several anterior right-sided ethmoidal air cells and a right mastoid effusion. CT/CT head/brain wo con IMPRESSION: No evidence of acute intracranial hemorrhage or edematous territorial infarction. Background of chronic microangiopathy and volume loss. Redemonstration of extensive paranasal sinus disease and a right mastoid effusion.
--- NOTE | ~2021-08-29 | XR_ITS ---
EXAMINATION: XR CHEST CLINICAL INFORMATION: Hypoxia. Aspiration. COMPARISON: August 30, 2021 TECHNIQUE: AP portable view of the chest was obtained. FINDINGS: There is some bibasilar density present with new left lower lobe retrocardiac density. These may be related to atelectasis or pneumonitis. The cardiopericardial silhouette is enlarged. No evidence of pulmonary edema. No pneumothorax or significant pleural effusion. XR/XR chest 1V IMPRESSION: Bibasilar disease which may relate to atelectasis or pneumonitis. Cardiomegaly without pulmonary edema.
--- NOTE | ~2021-08-29 | NM_ITS ---
EXAMINATION: NM LUNG IMAGE PERFUSION CLINICAL INFORMATION: Positive d-dimer COMPARISON: Chest x-ray 08/30/2021 TECHNIQUE: Following intravenous administration of 4 mCi of 90 9M technetium MAA imaging of both lungs were obtained multiple projections. Ventilation study was not performed. FINDINGS: On perfusion exam there is decreased perfusion in right lower lobe superior segment has slightly decreased perfusion in the left lower lobe. Chest x-ray shows patchy opacity in the right lower lobe and left lower lobe. NM/NM pul perfusion IMPRESSION: Matched defect right lower lobe and left lower lobe suggestive of indeterminate scan. The upper lungs perfuse normally. There is bibasilar patchy opacity likely infiltrate or atelectasis on the chest x-ray.
--- NOTE | ~2021-08-29 | XR_ITS ---
EXAMINATION: XR CHEST CLINICAL INFORMATION: Shortness of breath COMPARISON: 08/21/2021 CT TECHNIQUE: Frontal view of the chest was obtained. FINDINGS: Cardiac leads overlie the chest. The lungs are well expanded. Hazy appearance at the right apex is likely associated with the anterior aspect of the first rib rather than an airspace process, as this region is clear on prior CT. There is a patchy opacity at the right lung base. No pleural effusion or pneumothorax. No edema. The cardiomediastinal silhouette is within normal limits. XR/XR chest 1V IMPRESSION: Patchy right basilar opacity may be infectious or inflammatory.
[2021-08-29 16:27] VITALS: BP 139/61; PULSE 72; RESP 20; TEMP 36.6; O2SAT 100
[2021-08-29 16:30] VITALS: BP 139/61; BP 140/80; PULSE 76; PULSE 93; RESP 18; TEMP 36.6; O2SAT 100; O2SAT 91; BMI 28.4
--- NOTE | 2021-08-29 17:41 | ECG_ITS ---
Test Reason : FALL Blood Pressure : / mmHG Vent. Rate : 067 BPM Atrial Rate : 067 BPM P-R Int : 200 ms QRS Dur : 152 ms QT Int : 440 ms P-R-T Axes : 054 -33 035 degrees QTc Int : 464 ms Normal sinus rhythm Left axis deviation Right bundle branch block Minimal voltage criteria for LVH, may be normal variant ( R in aVL ) Abnormal ECG When compared with ECG of 21-AUG-2021 15:41, No significant change was found Referred By: Candi Vega Electronically Signed By:GUANACO QUINTERO
--- NOTE | 2021-08-29 17:42 | ED.GENADULT ---
HPI - General Adult General Chief complaint: General Medical Stated complaint: Weakness Time Seen by Provider: 08/29/21 17:36 Source: patient and EMS Mode of arrival: EMS Limitations: altered mental status History of Present Illness HPI narrative: Patient comes to the emergency room for being found unresponsive and with altered mental status. EMS reports that the daughter arrived to the patient's house, found the patient unresponsive on the couch. Patient was discharged from the hospital 6 days ago, patient was here for anemia, blood transfusion, and ulnar fracture. Patient was discharged with a prescription of 20 oxycodone , today there were only 5 left. According to the records, patient has history of opioid abuse. Per EMS, patient woke up to stimulus, patient complaining of weakness. Patient states that he is unsure why he is here. On arrival to the emergency room, patient is answering questions appropriately. Related Data Home Medications Medication Instructions Recorded Confirmed fluticasone propionate 110 1 puff PO BID 08/21/21 08/29/21 mcg/actuation HFA aerosol inhaler (Flovent HFA) furosemide 40 mg tablet 1 tab PO DAILY 08/21/21 08/29/21 lisinopril 5 mg tablet 1 tab PO DAILY 08/21/21 08/29/21 metoprolol succinate 50 mg 50 mg PO DAILY 08/21/21 08/29/21 tablet,extended release 24 hr oxycodone 5 mg tablet 1 tab PO Q6-8H 08/29/21 08/29/21 Allergies Allergy/AdvReac Type Severity Reaction Status Date / Time No Known Allergies Allergy Verified 08/29/21 16:29 Review of Systems Review of Systems: Constitutional : No Weight loss, No Fever, No Chills, No Night Sweats, No Fatigue, No Malaise ENT/Mouth : No Hearing loss, No Ear Pain, No Nasal Congestion, No Sinus Pain, No Hoarseness, No sore throat, No Rhinorrhea, No Swallowing Difficulty, Eyes: No Eye Pain, No Swelling, No Redness, No Foreign Body, No Discharge, No Vision Changes Cardiovascular : No Chest Pain, No SOB, No Dyspnea on Exertion, No Orthopnea, No Edema, No Palpitations Respiratory : No Cough, No Sputum, No Wheezing, No Smoke Exposure, No Dyspnea Gastrointestinal : No Nausea, No Vomiting, No Diarrhea, No Constipation, No abdominal Pain, No Hematochezia, No Melena Genitourinary : no irregular bleeding, No Dysuria, No Urinary Frequency, No Hematuria, No Urinary Incontinence, No Urgency, No Flank Pain, No Urinary Flow Changes, No Hesitancy Musculoskeletal : No joint pain, No Myalgias, No Joint Swelling, patient states his arm feels fine, healing Skin : No Skin Lesions, No rash Neuro : No Weakness, No Numbness, No Paresthesias, No Loss of Consciousness, No Dizziness, No Headache Psych : No Anxiety/Panic, No Depression, No SI/HI/AH/VH, No Social Issues, Heme/Lymph: No Bruising, No Bleeding,No Lymphadenopathy Endocrine : No Polyuria, No Polydipsia, No Temperature Intolerance [facility] Past Medical History Medical History Afib CHF (congestive heart failure) Surgical History No pertinent past surgical history Family History Family History (Updated 08/22/21 @ 07:14 by Antonio Alexander MD) Brother Pancreatic cancer Other No family history of coronary artery disease Social History Social History Household Members: None Housing: House Do you presently have visiting nurse or other home services: No Alcohol intake: never Patient Tobacco Use Status: Never used Tobacco Use of substances other than those prescribed or required for medical reasons: No Substance Use Type: Former Substance User Advance Directives: Yes Advance Directives on File: Yes Advance Directives Date on File: 08/21/21 service: Yes Current occupational status: retired Physical Exam ED Vital Signs: Vital Signs - 24 hr 08/29/21 16:27 08/29/21 16:30 08/29/21 19:09 Temperature 97.9 F 97.9 F 97.9 F Pulse Rate 72 76 71 Respiratory Rate 20 18 20 Blood Pressure 139/61 139/61 110/38 L Pulse Oximetry 100 100 93 08/29/21 19:53 Temperature Pulse Rate 76 Respiratory Rate 20 Blood Pressure 127/92 H Pulse Oximetry BMI result Body Mass Index 28.4 Const Other: Appearance: Alert. Oriented X3. No acute distress. Eyes: Pupils equal, round and reactive to light. ENT: Pharynx normal. Epistaxis in bilateral nares Neck: Normal inspection. Neck supple. No lymph nodes noted. No crepitus CVS: Normal heart rate and rhythm. Pulses normal. Normal S1 and S2 Respiratory: No respiratory distress. Breath sounds normal. No Wheezing. No rales Abdomen: Soft and nontender. No rigidity. No distention. Skin: Skin warm and dry. Normal skin color. Normal skin turgor. Extremities: No lower extremity edema. No Lacerations. No Rash, right forearm in a cast Neuro: Oriented X 3. No motor deficit. No sensory deficit. Moving all extremities. No slurred speech. CN 2 through 12 grossly intact Psych: calm, cooperative, normal affect Course Course Course Narrative: After a L of fluids, patient's creatinine did not have much improvement. Patient will be admitted for acute kidney injury. Patient's hemoglobin seems to be at baseline. At this time, we will not transfuse. I discussed the patient with Dr. Levy, patient being admitted Medical Decision Making Lab Data Result diagrams: 08/29/21 18:23 08/29/21 21:12 Labs: Lab Results 08/29/21 08/29/21 08/29/21 Range/Units 18:23 18:23 18:23 WBC 10.1 (4.8-10.8) X10*3/uL RBC 3.87 L (4.60-5.80) X10*6/uL Hgb 7.3 L (14.0-18.0) g/dl Hct 27.0 L (42.0-52.0) % MCV 69.8 L (80.0-98.0) fL MCH 18.9 L (27.0-33.0) pg MCHC 27.0 L (31.0-36.0) g/dl RDW 30.1 H (11.0-16.0) % Plt Count 412 H (160-400) X10*3/uL MPV 8.9 L (9.4-12.4) fL Immature Gran % (Auto) 0.4 (0.0-0.4) % Neut % (Auto) 58.8 (45-73) % Lymph % (Auto) 12.2 L (20-40) % [place] % (Auto) 10.3 (2-11) % Eos % (Auto) 17.3 H (0-4) % Baso % (Auto) 1.0 (0-2) % Lymph # (Auto) 1.2 (1.2-4.9) X10*3/uL [place] # (Auto) 1.0 (0.1-1.2) X10*3/uL Eos # (Auto) 1.7 H (0.0-0.4) X10*3/uL Baso # (Auto) 0.1 (0.0-0.2) X10*3/uL Abs Immat Gran (auto) 0.04 H (0.00-0.03) X10*3/uL Absolute Neuts (auto) 5.9 (2.0-8.3) x10*3/uL Absolute Nucleated RBC 0.000 (0.0-0.012) X10*3/uL Nucleated RBC % (auto) 0.0 (0.0-0.2) /100WBC PT 19.7 H (9.9-13.0) SEC INR 1.7 H (0.9-1.1) VBG pH (7.32-7.43) VBG pCO2 mmHg VBG pO2 mmHg VBG HCO3 (22-26) mmol/L VBG O2 Saturation % VBG Base Excess mmol/L Sodium 135 (135-145) mmol/L Potassium 4.5 (3.3-5.1) mmol/L Chloride 97 (96-108) mmol/L Carbon Dioxide 26 (22-29) mmol/L Anion Gap 17 (12-20) BUN 40 H D (9-16) mg/dL Creatinine 2.39 H (0.5-1.4) mg/dL Estim Creat Clear Calc 28.5 Estimated GFR 27 Random Glucose 91 (60-115) mg/dL Lactic Acid (0.5-2.0) mmol/L Calcium 8.6 (8.4-10.2) mg/dL Magnesium 2.2 (1.6-2.6) mg/dL Total Bilirubin 0.3 (0.0-1.0) mg/dL Direct Bilirubin 0.2 (0.0-0.5) mg/dL AST 18 D (5-37) U/L ALT 12 (0-40) U/L Alkaline Phosphatase 144 H (39-117) U/L Troponin I High Sens (<3.5-35.0) ng/L B-Natriuretic Peptide (<100) pg/mL Total Protein 6.5 (6.5-8.0) g/dL Albumin 3.6 (3.5-5.0) g/dL Ethyl Alcohol mg/dL COVID-19 (ELIUD) (Negative) COVID-19 Clin Com Blood Type Antibody Screen 08/29/21 08/29/21 08/29/21 Range/Units 18:23 18:23 18:23 WBC (4.8-10.8) X10*3/uL RBC (4.60-5.80) X10*6/uL Hgb (14.0-18.0) g/dl Hct (42.0-52.0) % MCV (80.0-98.0) fL MCH (27.0-33.0) pg MCHC (31.0-36.0) g/dl RDW (11.0-16.0) % Plt Count (160-400) X10*3/uL MPV (9.4-12.4) fL Immature Gran % (Auto) (0.0-0.4) % Neut % (Auto) (45-73) % Lymph % (Auto) (20-40) % [place] % (Auto) (2-11) % Eos % (Auto) (0-4) % Baso % (Auto) (0-2) % Lymph # (Auto) (1.2-4.9) X10*3/uL [place] # (Auto) (0.1-1.2) X10*3/uL Eos # (Auto) (0.0-0.4) X10*3/uL Baso # (Auto) (0.0-0.2) X10*3/uL Abs Immat Gran (auto) (0.00-0.03) X10*3/uL Absolute Neuts (auto) (2.0-8.3) x10*3/uL Absolute Nucleated RBC (0.0-0.012) X10*3/uL Nucleated RBC % (auto) (0.0-0.2) /100WBC PT (9.9-13.0) SEC INR (0.9-1.1) VBG pH (7.32-7.43) VBG pCO2 mmHg VBG pO2 mmHg VBG HCO3 (22-26) mmol/L VBG O2 Saturation % VBG Base Excess mmol/L Sodium (135-145) mmol/L Potassium (3.3-5.1) mmol/L Chloride (96-108) mmol/L Carbon Dioxide (22-29) mmol/L Anion Gap (12-20) BUN (9-16) mg/dL Creatinine (0.5-1.4) mg/dL Estim Creat Clear Calc Estimated GFR Random Glucose (60-115) mg/dL Lactic Acid 0.9 (0.5-2.0) mmol/L Calcium (8.4-10.2) mg/dL Magnesium (1.6-2.6) mg/dL Total Bilirubin (0.0-1.0) mg/dL Direct Bilirubin (0.0-0.5) mg/dL AST (5-37) U/L ALT (0-40) U/L Alkaline Phosphatase (39-117) U/L Troponin I High Sens 11.5 (<3.5-35.0) ng/L B-Natriuretic Peptide 772 H (<100) pg/mL Total Protein (6.5-8.0) g/dL Albumin (3.5-5.0) g/dL Ethyl Alcohol mg/dL COVID-19 (ELIUD) Negative (Negative) COVID-19 Clin Com See Note Blood Type Antibody Screen 08/29/21 08/29/21 08/29/21 Range/Units 18:23 18:23 18:26 WBC (4.8-10.8) X10*3/uL RBC (4.60-5.80) X10*6/uL Hgb (14.0-18.0) g/dl Hct (42.0-52.0) % MCV (80.0-98.0) fL MCH (27.0-33.0) pg MCHC (31.0-36.0) g/dl RDW (11.0-16.0) % Plt Count (160-400) X10*3/uL MPV (9.4-12.4) fL Immature Gran % (Auto) (0.0-0.4) % Neut % (Auto) (45-73) % Lymph % (Auto) (20-40) % [place] % (Auto) (2-11) % Eos % (Auto) (0-4) % Baso % (Auto) (0-2) % Lymph # (Auto) (1.2-4.9) X10*3/uL [place] # (Auto) (0.1-1.2) X10*3/uL Eos # (Auto) (0.0-0.4) X10*3/uL Baso # (Auto) (0.0-0.2) X10*3/uL Abs Immat Gran (auto) (0.00-0.03) X10*3/uL Absolute Neuts (auto) (2.0-8.3) x10*3/uL Absolute Nucleated RBC (0.0-0.012) X10*3/uL Nucleated RBC % (auto) (0.0-0.2) /100WBC PT (9.9-13.0) SEC INR (0.9-1.1) VBG pH 7.29 L (7.32-7.43) VBG pCO2 58 mmHg VBG pO2 71 mmHg VBG HCO3 28 H (22-26) mmol/L VBG O2 Saturation 90.0 % VBG Base Excess 1.3 mmol/L Sodium (135-145) mmol/L Potassium (3.3-5.1) mmol/L Chloride (96-108) mmol/L Carbon Dioxide (22-29) mmol/L Anion Gap (12-20) BUN (9-16) mg/dL Creatinine (0.5-1.4) mg/dL Estim Creat Clear Calc Estimated GFR Random Glucose (60-115) mg/dL Lactic Acid (0.5-2.0) mmol/L Calcium (8.4-10.2) mg/dL Magnesium (1.6-2.6) mg/dL Total Bilirubin (0.0-1.0) mg/dL Direct Bilirubin (0.0-0.5) mg/dL AST (5-37) U/L ALT (0-40) U/L Alkaline Phosphatase (39-117) U/L Troponin I High Sens (<3.5-35.0) ng/L B-Natriuretic Peptide (<100) pg/mL Total Protein (6.5-8.0) g/dL Albumin (3.5-5.0) g/dL Ethyl Alcohol < 10 mg/dL COVID-19 (ELIUD) (Negative) COVID-19 Clin Com Blood Type O Positive Antibody Screen NEGATIVE 08/29/21 Range/Units 21:12 WBC (4.8-10.8) X10*3/uL RBC (4.60-5.80) X10*6/uL Hgb (14.0-18.0) g/dl Hct (42.0-52.0) % MCV (80.0-98.0) fL MCH (27.0-33.0) pg MCHC (31.0-36.0) g/dl RDW (11.0-16.0) % Plt Count (160-400) X10*3/uL MPV (9.4-12.4) fL Immature Gran % (Auto) (0.0-0.4) % Neut % (Auto) (45-73) % Lymph % (Auto) (20-40) % [place] % (Auto) (2-11) % Eos % (Auto) (0-4) % Baso % (Auto) (0-2) % Lymph # (Auto) (1.2-4.9) X10*3/uL [place] # (Auto) (0.1-1.2) X10*3/uL Eos # (Auto) (0.0-0.4) X10*3/uL Baso # (Auto) (0.0-0.2) X10*3/uL Abs Immat Gran (auto) (0.00-0.03) X10*3/uL Absolute Neuts (auto) (2.0-8.3) x10*3/uL Absolute Nucleated RBC (0.0-0.012) X10*3/uL Nucleated RBC % (auto) (0.0-0.2) /100WBC PT (9.9-13.0) SEC INR (0.9-1.1) VBG pH (7.32-7.43) VBG pCO2 mmHg VBG pO2 mmHg VBG HCO3 (22-26) mmol/L VBG O2 Saturation % VBG Base Excess mmol/L Sodium 136 (135-145) mmol/L Potassium 4.6 (3.3-5.1) mmol/L Chloride 100 (96-108) mmol/L Carbon Dioxide 24 (22-29) mmol/L Anion Gap 17 (12-20) BUN 38 H (9-16) mg/dL Creatinine 2.18 H (0.5-1.4) mg/dL Estim Creat Clear Calc 31.3 Estimated GFR 30 Random Glucose 82 (60-115) mg/dL Lactic Acid (0.5-2.0) mmol/L Calcium 8.2 L (8.4-10.2) mg/dL Magnesium (1.6-2.6) mg/dL Total Bilirubin (0.0-1.0) mg/dL Direct Bilirubin (0.0-0.5) mg/dL AST (5-37) U/L ALT (0-40) U/L Alkaline Phosphatase (39-117) U/L Troponin I High Sens (<3.5-35.0) ng/L B-Natriuretic Peptide (<100) pg/mL Total Protein (6.5-8.0) g/dL Albumin (3.5-5.0) g/dL Ethyl Alcohol mg/dL COVID-19 (ELIUD) (Negative) COVID-19 Clin Com Blood Type Antibody Screen Discharge Plan Discharge Clinical Impression: Acute kidney injury Patient Disposition: Admitted as Observation Prescriptions: No Action furosemide 40 mg tablet 1 tab PO DAILY 0RF metoprolol succinate 50 mg tablet extended release 24 hr 50 mg PO DAILY 0RF Label Comments: MAY TAKE 75MG; WILL FOLLOW UP WITH MD IN THE AM lisinopril 5 mg tablet 1 tab PO DAILY 0RF Flovent HFA 110 mcg/actuation HFA aerosol inhaler 1 puff PO BID 0RF oxycodone 5 mg tablet 1 tab PO Q6-8H 0RF
[2021-08-29] MEDS: Oxymetazoline HCl 0.05 % Nasal 15 ML SPRAY 2 SPRAY NOSTRIL-B (17:55)
[2021-08-29 18:31] LABS: MANUAL DIFF FLAG NO
--- NOTE | 2021-08-29 18:32 | PC.NURSE ---
pt alert and oriented to person/place, unsure as to year, pt mildly agitated and restless in bed.
[2021-08-29 18:33] LABS: Basophils Absolute Auto 0.1 X10*3/uL (0.0-0.2); Eosinophils Absolute Auto 1.7 X10*3/uL (0.0-0.4); Eosinophils Percent Auto 17.3 % (0-4); Hemoglobin 7.3 g/dl (14.0-18.0); Imm Gran Abs Auto 0.04 X10*3/uL (0.00-0.03); Imm Gran Pct Auto 0.4 % (0.0-0.4); Lymphocytes Absolute Auto 1.2 X10*3/uL (1.2-4.9); Lymphocytes Percent Auto 12.2 % (20-40); Mean Corpuscular Hemoglobin 18.9 pg (27.0-33.0); Mean Corpuscular Volume 69.8 fL (80.0-98.0); Mean Platelet Volume 8.9 fL (9.4-12.4); Monocytes Percent Auto 10.3 % (2-11); Neutrophils Absolute Auto 5.9 x10*3/uL (2.0-8.3); Neutrophils Percent Auto 58.8 % (45-73); Platelet Count 412 X10*3/uL (160-400); Red Blood Count 3.87 X10*6/uL (4.60-5.80); Red Cell Distribution Width 30.1 % (11.0-16.0); White Blood Count 10.1 X10*3/uL (4.8-10.8)
[2021-08-29 18:33] LABS: VBG Base Excess 1.3 mmol/L; VBG HCO3 28 mmol/L (22-26); VBG pCO2 58 mmHg; VBG pH 7.29 (7.32-7.43); VBG pO2 71 mmHg
[2021-08-29 18:38] LABS: Venous Blood Gas Refer to POC result
--- NOTE | 2021-08-29 18:38 | PC.NURSE ---
NSR w right bundle and occ PVCs on monitor, provider aware.
[2021-08-29 18:42] LABS: INTERNATIONAL NORM RATIO 1.7 (0.9-1.1); Prothrombin Time 19.7 SEC (9.9-13.0)
[2021-08-29 18:43] LABS: Lactic Acid 0.9 mmol/L (0.5-2.0)
[2021-08-29 18:45] LABS: Ethanol < 10 mg/dL
[2021-08-29 18:48] LABS: COVID-19 Test Negative (Negative)
[2021-08-29 18:49] LABS: Alanine Aminotransferase 12 U/L (0-40); Albumin Level 3.6 g/dL (3.5-5.0); Alkaline Phosphatase 144 U/L (39-117); Anion Gap 17 (12-20); Aspartate Amino Transferase 18 U/L (5-37); Bilirubin Direct 0.2 mg/dL (0.0-0.5); Bilirubin Total 0.3 mg/dL (0.0-1.0); Blood Urea Nitrogen 40 mg/dL (9-16); Calcium 8.6 mg/dL (8.4-10.2); Carbon Dioxide 26 mmol/L (22-29); Chloride 97 mmol/L (96-108); Creatinine Clr Calc Pharmacy 28.5; Estimated Glomerular Filt Rate 27; Glucose Random 91 mg/dL (60-115); Magnesium 2.2 mg/dL (1.6-2.6); Potassium 4.5 mmol/L (3.3-5.1); Sodium 135 mmol/L (135-145); Total Protein 6.5 g/dL (6.5-8.0)
[2021-08-29 18:55] LABS: B Type Natriuretic Peptide 772 pg/mL (<100); Troponin-I High Sensitivity 11.5 ng/L (<3.5-35.0)
[2021-08-29 19:09] VITALS: BP 110/38; PULSE 71; RESP 20; TEMP 36.6; O2SAT 93
[2021-08-29] MEDS: 0.9 % Sodium Chloride 1,000 ML 500 ML IVCONT (19:09)
--- NOTE | 2021-08-29 19:13 | PC.NURSE ---
patient a&o, c/o rt arm pain 8/10, pt restless in the bed, monitor tech nsr, vss, ivf started per order, will continue to monitor.
--- NOTE | 2021-08-29 19:36 | PC.NURSE ---
nirmala attempted straight cath but was unsuccessful, provider notified and this nurse was told to see if the patient could urinate on his own after fluids have run, also nirmala and grad nurse was notified that repeat labs will be performed after IVF have completed as well.
[2021-08-29 19:53] VITALS: BP 127/92; PULSE 76; RESP 20
--- NOTE | 2021-08-29 19:59 | PHA.MEDREC ---
Pharmacy Consult ? Medication Reconciliation Pharmacy has completed the medication reconciliation.
[2021-08-29 21:36] LABS: Anion Gap 17 (12-20); Blood Urea Nitrogen 38 mg/dL (9-16); Calcium 8.2 mg/dL (8.4-10.2); Carbon Dioxide 24 mmol/L (22-29); Chloride 100 mmol/L (96-108); Creatinine Clr Calc Pharmacy 31.3; Estimated Glomerular Filt Rate 30; Glucose Random 82 mg/dL (60-115); Potassium 4.6 mmol/L (3.3-5.1); Sodium 136 mmol/L (135-145)
--- NOTE | 2021-08-29 21:50 | P.HPHOSP_ITS ---
History of Present Illness Date of Service: 08/29/21 Chief Complaint: unresponsive episode 70-year-old male with a past medical history of hypertension, AFib, CHF, anemia, asthma presented to the hospital today with chief complaint of brief unresponsive episode. Patient is a poor historian. Tried to call the patient's family- not reachable on the phone; Most of the history obtained from the records in the ER staff Reportedly patient was lying in his couch, not responding to the family members; subsequently EMS was called in when the EMS arrived patient was responding to the verbal stimuli; Patient denies any chest pain or palpitations. Patient denies any lightheadedness or dizziness. Patient denies using any home oxygen. Mentions he has been keeping up with diet; denies any difficulty swallowing. Denies any GI symptoms. Review of all other systems is negative except mentioned above ER course: Per ER team patient on presentations out and awake; EKG was nonischemic; troponin 10.9 CT head showed no acute findings home on labs noted to have elevated creatinine to 2.39; baseline creatinine of 0.8. Patient was given IV fluids with no significant improvement on follow-up labs; decided to admit to the hospital for further management. [facility] Medical History Afib CHF (congestive heart failure) Family History Brother Pancreatic cancer Other No family history of coronary artery disease Surgical History No pertinent past surgical history Social History Household Members: None Housing: House Do you presently have visiting nurse or other home services: No Alcohol intake: never Patient Tobacco Use Status: Never used Tobacco Substance Use Type: Former Substance User Advance Directives Date on File: 08/21/21 service: Yes Current occupational status: retired Meds Allergies Allergy/AdvReac Type Severity Reaction Status Date / Time No Known Allergies Allergy Verified 08/29/21 16:29 Active Medications: Current Medications Pharmacy Consult (Consult Rx Perform Med Rec) 1 each MISCELLANE ONCE PRN PRN Reason: Consult order Home Medications Medication Instructions Recorded Confirmed Last Taken Type fluticasone propionate 110 1 puff PO BID 08/21/21 08/29/21 Unknown History mcg/actuation HFA aerosol inhaler (Flovent HFA) furosemide 40 mg tablet 1 tab PO DAILY 08/21/21 08/29/21 Unknown History lisinopril 5 mg tablet 1 tab PO DAILY 08/21/21 08/29/21 Unknown History metoprolol succinate 50 mg 50 mg PO DAILY 08/21/21 08/29/21 Unknown History tablet,extended release 24 hr oxycodone 5 mg tablet 1 tab PO Q6-8H 08/29/21 08/29/21 08/29/21 History Physical Exam Vital Signs and Narrative: Vital Signs: Last Vital Signs Temp 97.9 F 08/29/21 19:09 Pulse 76 08/29/21 19:53 Resp 20 08/29/21 19:53 BP 127/92 H 08/29/21 19:53 Pulse Ox 93 08/29/21 19:09 Oxygen Flow Rate 2 08/29/21 16:30 BMI result Body Mass Index 28.4 Gen: Appears be in no acute distress HEENT: NCAT, Moist mucosa. Pulmonary: Slightly diminished breath sounds; occasional expiratory wheezing noted; patient was saturating 91-93% on Oxymizer CVS: Normal S1-S2 Abdomen: BS+, Soft, Nontender Extremities: Warm well perfused Neuro: Alert and awake. Results Labs CBC and Chem 7: 08/30/21 03:06 08/30/21 03:06 Labs: Laboratory Results - last 24 hr 08/29/21 08/29/21 08/29/21 18:23 18:23 18:23 MCV 69.8 L MCH 18.9 L MCHC 27.0 L RDW 30.1 H Plt Count 412 H MPV 8.9 L Immature Gran % (Auto) 0.4 Neut % (Auto) 58.8 Lymph % (Auto) 12.2 L Emanuel % (Auto) 10.3 Eos % (Auto) 17.3 H Baso % (Auto) 1.0 Lymph # (Auto) 1.2 Emanuel # (Auto) 1.0 Eos # (Auto) 1.7 H Baso # (Auto) 0.1 Abs Immat Gran (auto) 0.04 H Absolute Neuts (auto) 5.9 Absolute Nucleated RBC 0.000 Nucleated RBC % (auto) 0.0 PT 19.7 H INR 1.7 H VBG pH VBG pCO2 VBG pO2 VBG HCO3 VBG O2 Saturation VBG Base Excess Anion Gap 17 Estim Creat Clear Calc 28.5 Estimated GFR 27 Random Glucose 91 Lactic Acid Calcium 8.6 Magnesium 2.2 Total Bilirubin 0.3 Direct Bilirubin 0.2 AST 18 D ALT 12 Alkaline Phosphatase 144 H B-Natriuretic Peptide Total Protein 6.5 Albumin 3.6 Ethyl Alcohol COVID-19 (ELIUD) COVID-19 [employer] Blood Type Antibody Screen 08/29/21 08/29/21 08/29/21 18:23 18:23 18:23 MCV MCH MCHC RDW Plt Count MPV Immature Gran % (Auto) Neut % (Auto) Lymph % (Auto) Emanuel % (Auto) Eos % (Auto) Baso % (Auto) Lymph # (Auto) Emanuel # (Auto) Eos # (Auto) Baso # (Auto) Abs Immat Gran (auto) Absolute Neuts (auto) Absolute Nucleated RBC Nucleated RBC % (auto) PT INR VBG pH VBG pCO2 VBG pO2 VBG HCO3 VBG O2 Saturation VBG Base Excess Anion Gap Estim Creat Clear Calc Estimated GFR Random Glucose Lactic Acid 0.9 Calcium Magnesium Total Bilirubin Direct Bilirubin AST ALT Alkaline Phosphatase B-Natriuretic Peptide 772 H Total Protein Albumin Ethyl Alcohol COVID-19 (ELIUD) Negative [employer] See Note Blood Type Antibody Screen 08/29/21 08/29/21 08/29/21 18:23 18:23 18:26 MCV MCH MCHC RDW Plt Count MPV Immature Gran % (Auto) Neut % (Auto) Lymph % (Auto) Emanuel % (Auto) Eos % (Auto) Baso % (Auto) Lymph # (Auto) Emanuel # (Auto) Eos # (Auto) Baso # (Auto) Abs Immat Gran (auto) Absolute Neuts (auto) Absolute Nucleated RBC Nucleated RBC % (auto) PT INR VBG pH 7.29 L VBG pCO2 58 VBG pO2 71 VBG HCO3 28 H VBG O2 Saturation 90.0 VBG Base Excess 1.3 Anion Gap Estim Creat Clear Calc Estimated GFR Random Glucose Lactic Acid Calcium Magnesium Total Bilirubin Direct Bilirubin AST ALT Alkaline Phosphatase B-Natriuretic Peptide Total Protein Albumin Ethyl Alcohol < 10 COVID-19 (ELIUD) COVID-19 [employer] Blood Type O Positive Antibody Screen NEGATIVE 08/29/21 21:12 MCV MCH MCHC RDW Plt Count MPV Immature Gran % (Auto) Neut % (Auto) Lymph % (Auto) Emanuel % (Auto) Eos % (Auto) Baso % (Auto) Lymph # (Auto) Emanuel # (Auto) Eos # (Auto) Baso # (Auto) Abs Immat Gran (auto) Absolute Neuts (auto) Absolute Nucleated RBC Nucleated RBC % (auto) PT INR VBG pH VBG pCO2 VBG pO2 VBG HCO3 VBG O2 Saturation VBG Base Excess Anion Gap 17 Estim Creat Clear Calc 31.3 Estimated GFR 30 Random Glucose 82 Lactic Acid Calcium 8.2 L Magnesium Total Bilirubin Direct Bilirubin AST ALT Alkaline Phosphatase B-Natriuretic Peptide Total Protein Albumin Ethyl Alcohol COVID-19 (ELIUD) COVID-19 Clin Com Blood Type Antibody Screen Imaging Radiologist's Impressions: Impressions Head CT 08/29/21 18:06 IMPRESSION: No evidence of acute intracranial hemorrhage or edematous territorial infarction. Background of chronic microangiopathy and volume loss. Redemonstration of extensive paranasal sinus disease and a right mastoid effusion. Assessment and Plan (1) Acute kidney injury: Status: Acute Plan 70-year-old male with a past medical history of hypertension, AFib, CHF, asthma presented to the hospital today with chief complaint of brief unresponsive episode. Brief unresponsive episode: It is unclear if the patient was sleeping. Patient is currently alert and awake; moving all extremities equally; CT head showed no acute findings; EKG was nonischemic; initial troponin negative; follow-up troponin pending Asthma/Mild hypoxia: Patient was saturating 90-93% on Oxymizer; on lung exam noted to have slightlydiminished breath sounds and occasional expiratory wheezing; Will keep the patient on DuoNebs D-dimer is slightly elevated- will obtain V/Q scan in the morning; ( cannot obtain CT Angio secondary to renal insufficiency) History of AFib: Rate controlled. Eliquis on hold. Continue home metoprolol. HANK: Hold home lisinopril and furosemide. Continue gentle fluids. nephrology consult. Anemia: Patient had recent admission to the hospital for anemia; stool guaiac was negative; received 2 units of blood transfusion; discharged on 08/23/2021 with plan to hold Eliquis until seen by GI for outpatient EGD. Patient's hemoglobin on presentation was 7.3. Follow ups hemoglobin dropped to 6.7. Patient denies any active signs of bleeding. Will obtain a consent and transfuse 2 units of blood History of CHF: Home Lasix on hold for now. Monitor for signs of fluid overload diet: cardiac diet once passes nursing swallow screen. DVT prophylaxis: Subcu heparin Code status: Full code Quality Stroke Does the patient have a stroke diagnosis?: No VTE Prior VTE?: No VTE Risk Level:: Medical - moderate - high VTE Device Contraindication: Treatment Not Indicated VTE Drug Contraindication: N/A - Med Ordered
[2021-08-29] MEDS: Dextrose 5 % and 0.45 % NaCl 1,000 ML 75 ML IVCONT (22:08)
[2021-08-29] MEDS: Heparin Sodium,Porcine 5,000 UNIT/ML VIAL 5000 UNIT SUBCUT (22:11)
[2021-08-29] MEDS: oxyCODONE HCl Immed Release 5 MG TABLET PO (22:11)
[2021-08-29 22:18] VITALS: BP 124/50; PULSE 67; RESP 15; TEMP 36.8; O2SAT 100
--- NOTE | 2021-08-29 22:48 | PC.NURSE ---
iv fluids started per order, pt is on o2, refuses to keep in nose patient prefers to keep o2 in mouth.
--- NOTE | 2021-08-29 23:19 | PC.NURSE ---
pt cleaned, linens changed. pt resting comfortably at this time.
[2021-08-29 23:50] VITALS: BP 110/52; PULSE 67; RESP 22; TEMP 37; O2SAT 97
[2021-08-30] VITALS (13 sets, daily range): BP systolic 109–153; BP diastolic 43–55; PULSE 71–92; RESP 20–31; TEMP 36.7–37.3; O2SAT 91–100
--- NOTE | 2021-08-30 01:01 | PC.NURSE ---
Assumed care of pt Pt resting on stretcher Answering questions appropriately. Pt denies any MIRANDA/nausea Pt denies any pain or discomfort Pt's legs restless at bedside Will continue to monitor Daughter called but no answer
[2021-08-30 01:57] LABS: Appearance Urine HAZY; Color Urine YELLOW; Glucose Urine UA NEG (NEG); Leukocyte Esterase Urine NEG (NEG); Nitrite Urine NEG (NEG); Specific Gravity - Urine 1.025 (1.005-1.025); UACC Culture Trigger NO; Urine Blood 1+ (NEG); Urine Ketones NEG (NEG); Urine Protein NEG (NEG-TRACE)
[2021-08-30 02:06] LABS: Squamous Epithelial Cell Urine 3+ /LPF; WBC Urine 0 /HPF (0-4)
[2021-08-30 02:12] LABS: D Dimer High Sensitivity 564 NG/ML
[2021-08-30 02:14] LABS: Amphetamine Screen Urine Not Detected (Not Detect); Barbiturates, Urine Not Detected (Not Detect); Benzodiazepines Screen Urine Not Detected (Not Detect); Cannabinoid Screen Urine Not Detected (Not Detect); Cocaine Screen Urine POSITIVE (Not Detect); Fentanyl, urine Not Detected (Not Detect); Opiate Screen Urine POSITIVE (Not Detect); Phencyclidine Screen Urine Not Detected (Not Detect)
--- NOTE | 2021-08-30 02:53 | PC.NURSE ---
Obtained report on patient from ROSELYN King in ED around 02:29. Pt arrived in ED overflow bed 2 at 02:38. Pt A&OX3. Voice is hoarse. Pt states it is from all the talking he is doing. O2 via mask on 2L NC because patient had a nose bleed in ED. Pt has restless legs-when asked pt if that was normal for him he said, yeah, I guess so . Bed alarm on for safety. Pt states he lives alone in his house. He denies alcohol or drugs. Ambulates with a walker per baseline. Right arm on cast. +CMS. See Head to toe assessment. Will continue to monitor.
[2021-08-30 03:10] LABS: MANUAL DIFF FLAG NO
[2021-08-30 03:11] LABS: Basophils Absolute Auto 0.1 X10*3/uL (0.0-0.2); Basophils Percent Auto 0.9 % (0-2); Eosinophils Absolute Auto 1.8 X10*3/uL (0.0-0.4); Eosinophils Percent Auto 19.5 % (0-4); Hematocrit 24.8 % (42.0-52.0); Imm Gran Abs Auto 0.02 X10*3/uL (0.00-0.03); Imm Gran Pct Auto 0.2 % (0.0-0.4); Lymphocytes Absolute Auto 1.1 X10*3/uL (1.2-4.9); Lymphocytes Percent Auto 11.5 % (20-40); Mean Corpuscular Hemoglobin 19.3 pg (27.0-33.0); Mean Corpuscular Volume 71.3 fL (80.0-98.0); Mean Platelet Volume 8.8 fL (9.4-12.4); Monocytes Percent Auto 10.6 % (2-11); Neutrophils Absolute Auto 5.3 x10*3/uL (2.0-8.3); Neutrophils Percent Auto 57.3 % (45-73); Platelet Count 366 X10*3/uL (160-400); Red Blood Count 3.48 X10*6/uL (4.60-5.80); Red Cell Distribution Width 29.7 % (11.0-16.0); White Blood Count 9.2 X10*3/uL (4.8-10.8)
[2021-08-30 03:18] LABS: Hemoglobin 6.7 g/dl (14.0-18.0)
--- NOTE | 2021-08-30 03:20 | PC.NURSE ---
critical hemoglobin 6.7. Dr Thomas aware.
[2021-08-30 03:32] LABS: Troponin-I High Sensitivity 12.6 ng/L (<3.5-35.0)
[2021-08-30 03:38] LABS: Anion Gap 14 (12-20); Blood Urea Nitrogen 34 mg/dL (9-16); Calcium 8.2 mg/dL (8.4-10.2); Carbon Dioxide 25 mmol/L (22-29); Chloride 102 mmol/L (96-108); Creatinine Clr Calc Pharmacy 37.3; Estimated Glomerular Filt Rate 37; Glucose Random 89 mg/dL (60-115); Potassium 4.7 mmol/L (3.3-5.1); Sodium 136 mmol/L (135-145)
[2021-08-30] MEDS: Furosemide 20 MG TABLET PO (04:25)
[2021-08-30] MEDS: oxyCODONE HCl Immed Release 5 MG TABLET PO ×4 (04:25→21:48)
--- NOTE | 2021-08-30 05:32 | PC.NURSE ---
Dr Levy notified of am heparin order-told to hold. First unit RBC's infusing as ordered. Will continue to monitor.
[2021-08-30] MEDS: Albuterol/Iprat 2.5/0.5MG 3 ML AMPUL.NEB INHALE (07:50)
[2021-08-30] MEDS: Metoprolol Succinate ER 50 MG TAB.ER.24H PO (08:33)
--- NOTE | 2021-08-30 08:54 | PC.NURSE ---
Pt is A&Ox4 at this time, dry non productive consistent cough, even while eating with food in his mouth, made aware, pending speech eval at this time. Pt with consistent spastic movements to all 4 extremeties, pt states this is normal for him. NSR on monitor at this time. Pain 7/10 to R arm, aware pain medication due in 1 hour. Spoke to daughter Emilie in depth regarding current condition with low hemoglobin and blood transfusion x 2, she is concerned for him being DC'd home with no services, she states some days he is A&Ox4 and others he is confused. She would like a call from case management, CM made aware. Call sahni within reach at this time, will continue to monitor.
--- NOTE | 2021-08-30 09:40 | P.PNIM_ITS ---
Subjective Subjective Date of Service: 08/30/21 Interval History: cc: f/u on synocpe, anemia interv history: no arrhymia, no syncope, no active blee Review of Systems no fever, no gi bleedin seems confused Physical Exam Vital Signs: Vital Signs: Last Vital Signs Temp 98.5 F 08/30/21 09:23 Pulse 80 08/30/21 09:23 Resp 20 08/30/21 09:23 BP 131/46 L 08/30/21 09:23 Pulse Ox 97 08/30/21 06:09 Oxygen Flow Rate 2 08/29/21 16:30 BMI result Body Mass Index 28.4 Const: Other: General: AO X 1, no acute distress Resp: CTA bilateral CVS: S1,S2,RRR GI: +BS, NT, no distention Skin: No rash Neuro: motor grossly intact Psych: flat, confused--not encephalopathy Objective Data Active Medications Albuterol/Ipratropium (Albuterol/Iprat 2.5/0.5mg 3 Ml Ampul.Neb) 3 ml INHALE RQ6H WHILE AWAKE [facility] Last Admin: 08/30/21 07:50 Dose: 3 ml Documented by: JAS Albuterol/Ipratropium (Albuterol/Iprat 2.5/0.5mg 3 Ml Ampul.Neb) 3 ml INHALE RQ4H PRN PRN Reason: Shortness of Breath/Wheezing Heparin Sodium (Porcine) (Heparin Sodium,Porcine 5,000 Unit/Ml Vial) 5,000 unit SUBCUT Q8H [facility] Last Admin: 08/30/21 06:11 Dose: Not Given Documented by: HERB Non-Admin Reason: Patient Refused Dextrose/Sodium Chloride (D51/2ns) 1,000 mls @ 50 mls/hr IVCONT .Q20H [facility] Last Admin: 08/29/21 22:08 Dose: 75 mls/hr Documented by: KENNY Melatonin (Melatonin 3 Mg Tablet) 6 mg PO BEDTIME PRN PRN Reason: Insomnia Metoprolol Succinate (Metoprolol Succinate Er 50 Mg Tab.Er.24h) 50 mg PO DAILY [facility]; Protocol Last Admin: 08/30/21 08:33 Dose: 50 mg Documented by: MARCELLA Oxycodone HCl (Oxycodone Hcl Immed Release 5 Mg Tablet) 5 mg PO Q6H [facility] Last Admin: 08/30/21 04:25 Dose: 5 mg Documented by: HERB Pharmacy Consult (Consult Rx Perform Med Rec) 1 each MISCELLANE ONCE PRN PRN Reason: Consult order Senna (Sennosides 8.6 Mg Tablet) 17.2 mg PO BEDTIME PRN PRN Reason: Constipation Labs CBC & Chem 7: 08/30/21 03:06 08/30/21 03:06 Labs: Laboratory Results - last 24 hr 08/29/21 08/29/21 08/29/21 18:23 18:23 18:23 MCV 69.8 L MCH 18.9 L MCHC 27.0 L RDW 30.1 H Plt Count 412 H MPV 8.9 L Immature Gran % (Auto) 0.4 Neut % (Auto) 58.8 Lymph % (Auto) 12.2 L [place] % (Auto) 10.3 Eos % (Auto) 17.3 H Baso % (Auto) 1.0 Lymph # (Auto) 1.2 [place] # (Auto) 1.0 Eos # (Auto) 1.7 H Baso # (Auto) 0.1 Abs Immat Gran (auto) 0.04 H Absolute Neuts (auto) 5.9 Absolute Nucleated RBC 0.000 Nucleated RBC % (auto) 0.0 PT 19.7 H INR 1.7 H D-Dimer High Sensitivty VBG pH VBG pCO2 VBG pO2 VBG HCO3 VBG O2 Saturation VBG Base Excess Anion Gap 17 Estim Creat Clear Calc 28.5 Estimated GFR 27 Random Glucose 91 Lactic Acid Calcium 8.6 Magnesium 2.2 Total Bilirubin 0.3 Direct Bilirubin 0.2 AST 18 D ALT 12 Alkaline Phosphatase 144 H B-Natriuretic Peptide Total Protein 6.5 Albumin 3.6 Urine Color Urine Appearance Urine pH Ur Specific [place] Urine Protein Urine Glucose (UA) Urine Ketones Urine Blood Urine Nitrite Ur Leukocyte Esterase Urine RBC Urine WBC Ur Squamous Epith Cells Urine Bacteria Hyaline Casts Urine Opiates Screen Urine Fentanyl Screen Ur Barbiturates Screen Ur Phencyclidine Scrn Ur Amphetamines Screen U Benzodiazepines Scrn Urine Cocaine Screen U Marijuana (THC) Screen Ethyl Alcohol COVID-19 (ELIUD) COVID-19 Clin Com Blood Type Antibody Screen Crossmatch 08/29/21 08/29/21 08/29/21 18:23 18:23 18:23 MCV MCH MCHC RDW Plt Count MPV Immature Gran % (Auto) Neut % (Auto) Lymph % (Auto) [place] % (Auto) Eos % (Auto) Baso % (Auto) Lymph # (Auto) [place] # (Auto) Eos # (Auto) Baso # (Auto) Abs Immat Gran (auto) Absolute Neuts (auto) Absolute Nucleated RBC Nucleated RBC % (auto) PT INR D-Dimer High Sensitivty VBG pH VBG pCO2 VBG pO2 VBG HCO3 VBG O2 Saturation VBG Base Excess Anion Gap Estim Creat Clear Calc Estimated GFR Random Glucose Lactic Acid 0.9 Calcium Magnesium Total Bilirubin Direct Bilirubin AST ALT Alkaline Phosphatase B-Natriuretic Peptide 772 H Total Protein Albumin Urine Color Urine Appearance Urine pH Ur Specific [place] Urine Protein Urine Glucose (UA) Urine Ketones Urine Blood Urine Nitrite Ur Leukocyte Esterase Urine RBC Urine WBC Ur Squamous Epith Cells Urine Bacteria Hyaline Casts Urine Opiates Screen Urine Fentanyl Screen Ur Barbiturates Screen Ur Phencyclidine Scrn Ur Amphetamines Screen U Benzodiazepines Scrn Urine Cocaine Screen U Marijuana (THC) Screen Ethyl Alcohol COVID-19 (ELIUD) Negative COVID-19 Clin Com See Note Blood Type Antibody Screen Crossmatch 08/29/21 08/29/21 08/29/21 18:23 18:23 18:26 MCV MCH MCHC RDW Plt Count MPV Immature Gran % (Auto) Neut % (Auto) Lymph % (Auto) [place] % (Auto) Eos % (Auto) Baso % (Auto) Lymph # (Auto) [place] # (Auto) Eos # (Auto) Baso # (Auto) Abs Immat Gran (auto) Absolute Neuts (auto) Absolute Nucleated RBC Nucleated RBC % (auto) PT INR D-Dimer High Sensitivty VBG pH 7.29 L VBG pCO2 58 VBG pO2 71 VBG HCO3 28 H VBG O2 Saturation 90.0 VBG Base Excess 1.3 Anion Gap Estim Creat Clear Calc Estimated GFR Random Glucose Lactic Acid Calcium Magnesium Total Bilirubin Direct Bilirubin AST ALT Alkaline Phosphatase B-Natriuretic Peptide Total Protein Albumin Urine Color Urine Appearance Urine pH Ur Specific [place] Urine Protein Urine Glucose (UA) Urine Ketones Urine Blood Urine Nitrite Ur Leukocyte Esterase Urine RBC Urine WBC Ur Squamous Epith Cells Urine Bacteria Hyaline Casts Urine Opiates Screen Urine Fentanyl Screen Ur Barbiturates Screen Ur Phencyclidine Scrn Ur Amphetamines Screen U Benzodiazepines Scrn Urine Cocaine Screen U Marijuana (THC) Screen Ethyl Alcohol < 10 COVID-19 (ELIUD) COVID-19 Clin Com Blood Type O Positive Antibody Screen NEGATIVE Crossmatch See Detail 08/29/21 08/30/21 08/30/21 21:12 01:51 01:51 MCV MCH MCHC RDW Plt Count MPV Immature Gran % (Auto) Neut % (Auto) Lymph % (Auto) [place] % (Auto) Eos % (Auto) Baso % (Auto) Lymph # (Auto) [place] # (Auto) Eos # (Auto) Baso # (Auto) Abs Immat Gran (auto) Absolute Neuts (auto) Absolute Nucleated RBC Nucleated RBC % (auto) PT INR D-Dimer High Sensitivty VBG pH VBG pCO2 VBG pO2 VBG HCO3 VBG O2 Saturation VBG Base Excess Anion Gap 17 Estim Creat Clear Calc 31.3 Estimated GFR 30 Random Glucose 82 Lactic Acid Calcium 8.2 L Magnesium Total Bilirubin Direct Bilirubin AST ALT Alkaline Phosphatase B-Natriuretic Peptide Total Protein Albumin Urine Color YELLOW Urine Appearance HAZY Urine pH 6.0 Ur Specific [place] 1.025 Urine Protein NEG Urine Glucose (UA) NEG Urine Ketones NEG Urine Blood 1+ H Urine Nitrite NEG Ur Leukocyte Esterase NEG Urine RBC 1-4 Urine WBC 0 Ur Squamous Epith Cells 3+ Urine Bacteria NONE Hyaline Casts 5-9 Urine Opiates Screen POSITIVE H Urine Fentanyl Screen Not Detected Ur Barbiturates Screen Not Detected Ur Phencyclidine Scrn Not Detected Ur Amphetamines Screen Not Detected U Benzodiazepines Scrn Not Detected Urine Cocaine Screen POSITIVE H U Marijuana (THC) Screen Not Detected Ethyl Alcohol COVID-19 (ELIUD) COVID-19 Clin Com Blood Type Antibody Screen Crossmatch 08/30/21 08/30/21 08/30/21 01:51 03:06 03:06 MCV 71.3 L MCH 19.3 L MCHC 27.0 L RDW 29.7 H Plt Count 366 MPV 8.8 L Immature Gran % (Auto) 0.2 Neut % (Auto) 57.3 Lymph % (Auto) 11.5 L [place] % (Auto) 10.6 Eos % (Auto) 19.5 H Baso % (Auto) 0.9 Lymph # (Auto) 1.1 L [place] # (Auto) 1.0 Eos # (Auto) 1.8 H Baso # (Auto) 0.1 Abs Immat Gran (auto) 0.02 Absolute Neuts (auto) 5.3 Absolute Nucleated RBC 0.000 Nucleated RBC % (auto) 0.0 PT INR D-Dimer High Sensitivty 564 VBG pH VBG pCO2 VBG pO2 VBG HCO3 VBG O2 Saturation VBG Base Excess Anion Gap 14 Estim Creat Clear Calc 37.3 Estimated GFR 37 Random Glucose 89 Lactic Acid Calcium 8.2 L Magnesium Total Bilirubin Direct Bilirubin AST ALT Alkaline Phosphatase B-Natriuretic Peptide Total Protein Albumin Urine Color Urine Appearance Urine pH Ur Specific [place] Urine Protein Urine Glucose (UA) Urine Ketones Urine Blood Urine Nitrite Ur Leukocyte Esterase Urine RBC Urine WBC Ur Squamous Epith Cells Urine Bacteria Hyaline Casts Urine Opiates Screen Urine Fentanyl Screen Ur Barbiturates Screen Ur Phencyclidine Scrn Ur Amphetamines Screen U Benzodiazepines Scrn Urine Cocaine Screen U Marijuana (THC) Screen Ethyl Alcohol COVID-19 (ELIUD) COVID-19 Clin Com Blood Type Antibody Screen Crossmatch Assessment and Plan (1) Severe anemia: Status: Acute (2) Syncope: Status: Acute Plan 70-year-old male with a past medical history of hypertension, AFib, CHF, asthma presented to the hospital today with chief complaint of brief unresponsive episode.? Brief unresponsive episode:Circumstances unclear and work up is negative including head CT, ECG.. Cardiac telemetry monitoring for at least 1 more day Asthma/Mild hypoxia: Patient was saturating 90-93% on Oxymizer; on lung exam noted to have? slig htlydiminished breath sounds and occasional expiratory wheezing; Will keep the patient on DuoNebs D-dimer is slightly elevated- will obtain V/Q scan in the morning; ( cannot obtain CT Angio secondary to renal insufficiency) History of AFib:? Rate controlled.? Eliquis on hold.? Continue home metoprolol. HANK vs CKD--Nephrology consult Anemia:? Acute on chronic anemia with recent admission for anemia and GI advised holding Eliquis and outpatient EGD, will reconsult GI and continue holding Eliquis, agree with transfusion and monitoring of H/H ? History of CHF:? Home Lasix on hold for now.??Monitor for signs of fluid overload ?diet:? cardiac diet once passes nursing swallow screen.? Confusuion: NOT encephlaopathy,,,, baseline is not clear, will need additional information Need for inaptient stay: Syncope work up, acute GI bleed work, need for transfusion Quality Stroke Does the patient have a stroke diagnosis?: No VTE Prior VTE?: No VTE Risk Level:: Medical - moderate - high VTE Device Contraindication: Treatment Not Indicated VTE Drug Contraindication: N/A - Med Ordered
--- NOTE | 2021-08-30 09:50 | MHC.CM.PN ---
CM MET WITH PT WHO RECENTLY LEFT AMA PT LIVES ALONE AND IS INDEPENDENT AT BASELINE PT HAS A WALKER AND HAD NO HOME SERVICES CONSTRUCTION OR [employer] PT HAS A POA AND HCP ON FILE PTS PCP IS AT [facility] IMM DELIVERED, COPY SENT TO MEDICAL RECORDS CURRENTLY DC PLAN IS TBD PT CONTINUES TO REFUSE OFFERS OF STR REFERRALS HE REPORTS NOW THAT HE WILL CONSIDER [facility] AT DC REFERRAL TO [facility] PER HIS STATED PREFERENCE TRANSPORTATION TBD BY DISPOSITION
--- NOTE | 2021-08-30 10:48 | PM.CNNEP ---
History of Present Illness Reason for Consult Consult date: 08/30/21 Chief Complaint Chief complaint: HANK History of Present Illness Narrative: 70-year-old male with no known significant CKD presented to the hospital following a brief unresponsive episode.?He was found lying in his couch, not responding to the family members & subsequently EMS was called in . When EMS arrived he was responding to verbal stimuli. He denied any chest pain, palpitations, nausea, vomiting or diarrhea. He has been taking diuretics and ACEI at home. His serum creatinine had gone up to? 2.39 with a baseline creatinine of 0.8.?He was admitted to the hospital for further management. Nephrology has been consulted to assist in his clinical care during his current hospital stay Review of Systems Review of Systems Yes all other systems are reviewed and are negative PMFSH Past Medical History Medical History Afib CHF (congestive heart failure) Family History Family History Brother Pancreatic cancer Other No family history of coronary artery disease Surgical History Surgical History No pertinent past surgical history Social History Social History Household Members: None Housing: House Do you presently have visiting nurse or other home services: No Alcohol intake: never Patient Tobacco Use Status: Never used Tobacco Use of substances other than those prescribed or required for medical reasons: No Substance Use Type: Former Substance User Advance Directives: Yes Advance Directives on File: Yes Advance Directives Date on File: 08/21/21 service: Yes Current occupational status: retired [employer] Allergies Allergy/AdvReac Type Severity Reaction Status Date / Time No Known Allergies Allergy Verified 08/29/21 16:29 Active Medications: Current Medications Albuterol/Ipratropium (Albuterol/Iprat 2.5/0.5mg 3 Ml Ampul.Neb) 3 ml INHALE RQ6H WHILE AWAKE [facility] Last Admin: 08/30/21 07:50 Dose: 3 ml Documented by: Albuterol/Ipratropium (Albuterol/Iprat 2.5/0.5mg 3 Ml Ampul.Neb) 3 ml INHALE RQ4H PRN PRN Reason: Shortness of Breath/Wheezing Heparin Sodium (Porcine) (Heparin Sodium,Porcine 5,000 Unit/Ml Vial) 5,000 unit SUBCUT Q8H [facility] Last Admin: 08/30/21 06:11 Dose: Not Given Documented by: Dextrose/Sodium Chloride (D51/2ns) 1,000 mls @ 50 mls/hr IVCONT .Q20H [facility] Last Admin: 08/29/21 22:08 Dose: 75 mls/hr Documented by: Melatonin (Melatonin 3 Mg Tablet) 6 mg PO BEDTIME PRN PRN Reason: Insomnia Metoprolol Succinate (Metoprolol Succinate Er 50 Mg Tab.Er.24h) 50 mg PO DAILY [facility]; Protocol Last Admin: 08/30/21 08:33 Dose: 50 mg Documented by: Oxycodone HCl (Oxycodone Hcl Immed Release 5 Mg Tablet) 5 mg PO Q6H [facility] Last Admin: 08/30/21 09:58 Dose: 5 mg Documented by: Pharmacy Consult (Consult Rx Perform Med Rec) 1 each MISCELLANE ONCE PRN PRN Reason: Consult order Senna (Sennosides 8.6 Mg Tablet) 17.2 mg PO BEDTIME PRN PRN Reason: Constipation Home Medications Medication Instructions Recorded Confirmed Last Taken Type fluticasone propionate 110 1 puff PO BID 08/21/21 08/29/21 Unknown History mcg/actuation HFA aerosol inhaler (Flovent HFA) furosemide 40 mg tablet 1 tab PO DAILY 08/21/21 08/29/21 Unknown History lisinopril 5 mg tablet 1 tab PO DAILY 08/21/21 08/29/21 Unknown History metoprolol succinate 50 mg 50 mg PO DAILY 08/21/21 08/29/21 Unknown History tablet,extended release 24 hr oxycodone 5 mg tablet 1 tab PO Q6-8H 08/29/21 08/29/21 08/29/21 History Physical Exam Vital Signs: Last Vital Signs Temp 98.5 F 08/30/21 09:41 Pulse 81 08/30/21 09:41 Resp 24 H 08/30/21 09:41 BP 122/43 L 08/30/21 09:41 Pulse Ox 97 08/30/21 06:09 Oxygen Flow Rate 2 08/29/21 16:30 BMI result Body Mass Index 28.4 Const General: no acute distress Neck Neck: Yes supple Resp Auscultation: diminished lung sounds Cardio Rate: regular rate GI Palpation (GI): Soft to palpation Neuro Other: Confused Results Lab Results Result Diagrams: 08/30/21 03:06 08/30/21 03:06 Lab results: Chemistry 08/29/21 08/29/21 08/30/21 18:23 21:12 03:06 Sodium 135 136 136 Potassium 4.5 4.6 4.7 Carbon Dioxide 26 24 25 BUN 40 H D 38 H 34 H Creatinine 2.39 H 2.18 H 1.83 H Calcium 8.6 8.2 L 8.2 L Hematology 08/29/21 08/30/21 18:23 03:06 WBC 10.1 9.2 Hgb 7.3 L 6.7 L* Plt Count 412 H 366 Urinalysis 08/30/21 01:51 Urine Color YELLOW Urine Appearance HAZY Urine pH 6.0 Ur Specific [place] 1.025 Urine Protein NEG Urine Glucose (UA) NEG Urine Ketones NEG Urine Blood 1+ H Urine Nitrite NEG Ur Leukocyte Esterase NEG Urine RBC 1-4 Urine WBC 0 Ur Squamous Epith Cells 3+ Hyaline Casts 5-9 Assessment and Plan (1) Acute kidney injury: Status: Acute Plan Acute Kidney Injury due to tubular injury ACEI/ Diuretics had been put onhold Urine output OK. No reason to suspect GN/AIN Had been getting IV fluids Serum creatinine improving Do not have significant CKD at baseline C/W rest of current management for now Labs AM. Shall closely follow up Procedures Date of Service Date of Service: 08/30/21
--- NOTE | 2021-08-30 12:35 | PM.EVENT ---
Event Note Date of Service: 08/30/21 Event Note: GI consult dictated recurrent anemia requiring blood transfusion EGD/colon planned for 08/31
--- NOTE | 2021-08-30 13:40 | PC.NURSE ---
Pt to Nuc Med at this time.
[2021-08-30] MEDS: Dextrose 5 % and 0.45 % NaCl 1,000 ML 75 ML IVCONT ×2 (14:01→20:26)
[2021-08-30] MEDS: PEG 3350/Na Sulf,Bicarb,Cl/KCL 4,000 ML SOLN.RECON 4000 ML PO (14:02)
[2021-08-30] MEDS: Phytonadione (Vit K1) 10 MG in 0.9 % Sodium Chloride 50 ML 51 MG IV (14:31)
--- NOTE | 2021-08-30 14:40 | MHC.SL.SWA ---
Speech Pathologist Impression: Risk of Aspiration Due to: Weak Voice Dysphasia Diet Status: Liquid Consistency and Strategies for Safe Swallow: Liquid Intake Recommendation: Thin Liquid Intake Strategies: Solid Food Consistency: Dietary Recommendations: Chopped/Advanced (NDD3) Additional Modifications to Solid Foods: Avoid tough to chew solids Oral Medication Intake: Whole with Liquid Please contact the pharmacy regarding appropriate crushable or liquid drug formulations that are available whenever modified delivery is recommended. Compensatory Strategies and Precautions to be Taken for Safe Swallow: Sitting Upright (90 deg) Liquids from Cup Alternate Liquids/Solids Supervision While Eating and Drinking for Safe Swallow: None Needed Foods to Avoid: Tough to chew solids Swallowing Recommended Treatments: Compens. Strategy Educat. Recommendation for Speech: Inpatient Speech Therapy Comment: Pt with most aspects of swallow WNL, mild difficulty w/ more solid textures due to being edentulous. Recommend DOWNGRADE from current regular diet to CHOPPED/ADVANCED (NDD3), with THIN liquids by cup, Pills whole w/ liquid. Recommendation sent to MD, Cattle Tester, MACHINE SCALLOP CUTTER updated diet consistencies in EXPANSE. Recommend 1 f/u to assess toleration of diet. Frequency/Duration: Date Range for Service Req: Timeline to reassess: Surgical Endoscopist Clinican/Clinical Fellow: No Supervisory Statement: I have reviewed and agree with the student/clinical fellow's documentation: N/A Speech Language Pathologist: Marina Díaz M.A., CCC-MACHINE SCALLOP CUTTER
--- NOTE | 2021-08-30 20:34 | PC.NURSE ---
Pt alert and oriented. Pt uncooperative with drinking prep for his colonoscopy tomorrow. Staff in with patient every 10-15 minutes. Difficult to get him to take 3 sips at a time. Pt vomited clear. Dr notified. IV fluids infusing as ordered. Pt voiding in urinal. Will continue to monitor.
[2021-08-30] MEDS: ondansetron HCL 4 MG/2 ML VIAL IVPUSH (20:51)
--- NOTE | 2021-08-30 23:36 | CONS_ITS ---
DATE OF SERVICE: 08/30/2021 REFERRING PHYSICIAN: Noah Quinonez MD REASON FOR CONSULTATION: Anemia, iron deficiency. HISTORY OF PRESENT ILLNESS: Patient is a 70-year-old man known to me from recent evaluation. He was hospitalized earlier in the month with iron deficiency anemia. Stool testing at that time was negative for occult blood. He required transfusion of 3 units of packed red blood cells and was discharged for outpatient endoscopy and colonoscopy. He had been on Eliquis and this was to be stopped at the time of discharge. However, the patient is unable to tell me if he has in fact stopped this. He was brought to the emergency room yesterday after he had a change in mental status and was reportedly unresponsive at home. He also was prescribed oxycodone and had been taking this. Evaluation in the emergency room showed elevation of his serum creatinine and recurrence of his anemia with a hematocrit of 27, which dropped to 24.8 following hydration. He is currently being transfused 2 units of packed red blood cells. Toxicology screen was positive for opiates and cocaine, which may have contributed to his unresponsiveness. He reports no bleeding at home. PAST MEDICAL HISTORY: 1. Atrial fibrillation. 2. Hypertension. 3. Congestive heart failure. 4. Wrist fracture. CURRENT MEDICATIONS: Current medication list is reviewed in the chart. The patient is unsure what he is taking. ALLERGIES: THERE ARE NONE REPORTED. FAMILY HISTORY: Please see consultation dated 08/22. There are no changes. SOCIAL HISTORY: Please see consultation dated 08/22. There are no changes. REVIEW OF SYSTEMS: Not reliably obtainable. PHYSICAL EXAMINATION: GENERAL: Shows a pleasant male who is quite somnolent. VITAL SIGNS: Reviewed in electronic medical record and are stable. SKIN: Anicteric. HEENT: Shows no scleral icterus. NECK: Without lymphadenopathy or thyromegaly. LUNGS: Clear. HEART: Shows regular rate and rhythm. S1, S2. No murmur. ABDOMEN: Soft without focal masses or tenderness. Bowel sounds are present. No organomegaly is noted. EXTREMITIES: Without edema. LABORATORY DATA: Reviewed. IMPRESSION: 1. Iron-deficiency anemia. 2. Some of his decrease in hematocrit may be related to the IV fluids, which he received upon admission. However, given that he has required transfusion on 2 separate occasions, I would recommend that he undergo upper endoscopy and colonoscopy while in the hospital. I have discussed risks and benefits of the procedure with him. He understands these and agrees to proceed. MD HARSHIL Del Real/OLIVIA / [phone]
[2021-08-31] VITALS (12 sets, daily range): BP systolic 131–191; BP diastolic 50–77; PULSE 73–84; RESP 18–26; TEMP 37.1–38.7; O2SAT 88–100
--- NOTE | 2021-08-31 00:04 | PC.NURSE ---
Patient was non compliant with drinking his prep for his upper and lower endoscopy. Dr Levy made aware twice. Pt did have episodes of vomiting and was given Zofran with good effect. Pt flat out said he wasn't going to drink it.
[2021-08-31] MEDS: oxyCODONE HCl Immed Release 5 MG TABLET PO ×2 (04:14→16:25)
[2021-08-31 06:30] LABS: INTERNATIONAL NORM RATIO 1.3 (0.9-1.1); Prothrombin Time 14.6 SEC (9.9-13.0)
[2021-08-31] MEDS: Albuterol/Iprat 2.5/0.5MG 3 ML AMPUL.NEB INHALE ×3 (08:04→19:16)
--- NOTE | 2021-08-31 08:37 | P.PNIM_ITS ---
Subjective Subjective Date of Service: 08/31/21 Interval History: cc: f/u on synocpe, anemia interv history: no arrhymia, no syncope, no active bleed, no syncope, no arrythmia Review of Systems no fever, no gi bleedin seems confused Physical Exam Vital Signs: Vital Signs: Last Vital Signs Temp 98.9 F 08/30/21 12:29 Pulse 77 08/31/21 08:05 Resp 26 H 08/31/21 08:05 BP 153/59 H 08/31/21 06:23 Pulse Ox 97 08/31/21 06:23 Oxygen Flow Rate 2 08/29/21 16:30 BMI result Body Mass Index 28.4 Const: Other: General: AO X 1, no acute distress Resp: CTA bilateral CVS: S1,S2,RRR GI: +BS, NT, no distention Skin: No rash Neuro: motor grossly intact Psych: flat, confused--not encephalopathy Objective Data Active Medications Albuterol/Ipratropium (Albuterol/Iprat 2.5/0.5mg 3 Ml Ampul.Neb) 3 ml INHALE RQ6H WHILE AWAKE [facility] Last Admin: 08/31/21 08:04 Dose: 3 ml Documented by: JAS Albuterol/Ipratropium (Albuterol/Iprat 2.5/0.5mg 3 Ml Ampul.Neb) 3 ml INHALE RQ4H PRN PRN Reason: Shortness of Breath/Wheezing Heparin Sodium (Porcine) (Heparin Sodium,Porcine 5,000 Unit/Ml Vial) 5,000 unit SUBCUT Q8H [facility] Last Admin: 08/31/21 06:16 Dose: Not Given Documented by: HERB Non-Admin Reason: low H&H Dextrose/Sodium Chloride (D51/2ns) 1,000 mls @ 50 mls/hr IVCONT .Q20H [facility] Last Admin: 08/30/21 20:26 Dose: 75 mls/hr Documented by: HERB Melatonin (Melatonin 3 Mg Tablet) 6 mg PO BEDTIME PRN PRN Reason: Insomnia Metoprolol Succinate (Metoprolol Succinate Er 50 Mg Tab.Er.24h) 50 mg PO DAILY [facility]; Protocol Last Admin: 08/30/21 08:33 Dose: 50 mg Documented by: HO.N-RAMSK Oxycodone HCl (Oxycodone Hcl Immed Release 5 Mg Tablet) 5 mg PO Q6H [facility] Last Admin: 08/31/21 04:14 Dose: 5 mg Documented by: HERB Pharmacy Consult (Consult Rx Perform Med Rec) 1 each MISCELLANE ONCE PRN PRN Reason: Consult order Senna (Sennosides 8.6 Mg Tablet) 17.2 mg PO BEDTIME PRN PRN Reason: Constipation Labs CBC & Chem 7: 08/30/21 03:06 08/30/21 03:06 Labs: Laboratory Results - last 24 hr 08/29/21 08/30/21 08/31/21 18:23 03:06 05:39 Smear Path Review SEE NOTE PT 14.6 H INR 1.3 H Blood Type O Positive Antibody Screen NEGATIVE Crossmatch See Detail Assessment and Plan (1) Severe anemia: Status: Acute (2) Syncope: Status: Acute Plan 70-year-old male with a past medical history of hypertension, AFib, CHF, asthma presented to the hospital today with chief complaint of brief unresponsive episode.? Brief unresponsive episode:Circumstances unclear and work up is negative including head CT, ECG.. Cardiac telemetry has been negative thus far, probably all realted to anemia Asthma/Mild hypoxia: Patient was saturating 90-93% on Oxymizer; on lung exam noted to have? slightlydiminished breath sounds and occasional expiratory wheezing; Will keep the patient on DuoNebs D-dimer is slightly elevated, VQ scan indeterminate. History of AFib:? Rate controlled.? Eliquis on hold.? Continue home metoprolol. HANK vs CKD--Nephrology consult Anemia:? Acute on chronic anemia with recent admission for anemia and GI advised holding Eliquis and outpatient EGD, will reconsult GI and continue holding Eliquis, agree with transfusion and monitoring of H/H, GI to perfrom colonoscopy today ? History of CHF:? Home Lasix on hold for now.??Monitor for signs of fluid overload ?diet:? cardiac diet once passes nursing swallow screen.? Confusuion: NOT encephlaopathy,,,, baseline is not clear, will need additional information Need for inaptient stay: Syncope work up, acute GI bleed work with colonoscopy today, need for transfusion Quality Stroke Does the patient have a stroke diagnosis?: No VTE Prior VTE?: No VTE Risk Level:: Medical - moderate - high VTE Device Contraindication: Treatment Not Indicated VTE Drug Contraindication: N/A - Med Ordered
--- NOTE | 2021-08-31 08:49 | PC.NURSE ---
Pt A&Ox3, Lungs dimished throughout, dry hacking cough present, no complaints of pain at this time. NSR on monitor, on oxymask, 5L NC at this time, O2 sat in the high 90's, when pt removes mask he desats into the high 80's. Pt denies nausea at this time, report given to Debra. Will continue to monitor until transport.
--- NOTE | 2021-08-31 09:40 | P.CDIC_ITS ---
CDI Concurrent Query Documentation Clarification: PHYSICIAN'S DOCUMENTATION REQUEST Date of Query: 08/31/21 0941 Patient Name: Demetrius Walsh Admit Date: 08/29/21 Dear Doctor, A review of the medical record indicates additional documentation may be needed. Please review below and update the documentation accordingly. Clinical Indicators: Risk Factors/Clinical Indicators/Treatments BNP 772 per H&P: history of CHF Please provide further specificity regarding the most likely type and acuity of CHF you are evaluating, treating, or monitoring. Examples include: Type: * Systolic * Diastolic * Combined Systolic/Diastolic * Other ? please specify * Unable to determine Acuity: * Acute * Chronic * Acute on chronic * Unable to determine Use of terms such as suspected, likely, concern for, or probable (associated with a specific diagnosis that is being evaluated, monitored, or treated as if it exists) are acceptable and can be coded in the inpatient setting, when documented at the time of discharge. Thank you, Shira Chavez RN Extension: [phone] Please use your independent medical judgment in providing your response. THIS QUERY IS PART OF THE PERMANENT MEDICAL RECORD Provider Response: Other Other Diagnosis: Not enough info to determine exact nature of heart failure, ie echo of documented EF
[2021-08-31 09:48] LABS: Hematocrit 34.5 % (42.0-52.0); Hemoglobin 9.6 g/dl (14.0-18.0); Mean Corpuscular HGB Conc 27.8 g/dl (31.0-36.0); Mean Corpuscular Hemoglobin 21.7 pg (27.0-33.0); Mean Corpuscular Volume 78.1 fL (80.0-98.0); Mean Platelet Volume 8.8 fL (9.4-12.4); Platelet Count 383 X10*3/uL (160-400); Red Blood Count 4.42 X10*6/uL (4.60-5.80); White Blood Count 9.1 X10*3/uL (4.8-10.8)
[2021-08-31] MEDS: Metoprolol Succinate ER 50 MG TAB.ER.24H PO (10:35)
[2021-08-31] MEDS: Dextrose 5 % and 0.45 % NaCl 1,000 ML 75 ML IVCONT (10:39)
--- NOTE | 2021-08-31 11:14 | MHC.SLORD ---
Speech Language Pathology Order Status: Pt is unresponsive at the time of this visit.
--- NOTE | 2021-08-31 14:26 | PC.NURSE ---
Pt received from ED via bed. Drowsy but arousable. Able to answer admission questions but would doze in between. Denied pain, n/v. O2 via Oxymizer 4L. Lungs dim with occasional exp wheezes. Congested NPC. Voiding in urinal . Attempted to place a [place] cath on pt but pt removed it. NPO for EGD
--- NOTE | 2021-08-31 15:25 | PM.EVENT ---
Event Note Date of Service: 08/31/21 Event Note: GI Patient seen in short stay, tachypneic and febrile CXR results reviewed, ?aspiration. EGD/colon cancelled after discussion with Dr Barnett recommend treating pulmonary process, procedure rescheduled for 09/03, assuming he is medically cleared. If not, can arrange as outpatient, although it is not at all clear he will follow up. Discussed with pt, RN and Dr Quinonez.
--- NOTE | 2021-08-31 16:03 | PM.PNNEP ---
Subjective Subjective Date of Service: 08/31/21 Principal diagnosis: HANK Interval history: cc: f/u on synocpe, anemia interv history: no arrhymia, no syncope, no active bleed, no syncope, no arrythmia Physical Exam Vital Signs: Vital Signs: Last Vital Signs Temp 99.5 F 08/31/21 15:31 Pulse 78 08/31/21 15:56 Resp 22 H 08/31/21 15:56 BP 160/64 H 08/31/21 15:31 Pulse Ox 97 08/31/21 15:15 Oxygen Flow Rate 2 08/29/21 16:30 BMI result Body Mass Index 28.4 HENMT: Head: Yes normal to inspection, Yes normocephalic and Yes atraumatic Neck: Neck: Yes normal visual inspection, Yes no lymphadenopathy and Yes trachea midline Chest: Chest palpation & inspection: normal inspection of the chest Resp: Effort & Inspection: normal respiratory effort and able to speak in complete sentences Cardio: Jugular venous distension: no JVD Rhythm: regular rhythm Heart sounds: S2 normal heart sound present GI: Inspection: Yes normal to inspection Palpation (GI): Soft to palpation Auscultation: normal bowel sounds Extrem: General: Yes normal to inspection Right upper extremity: edema Objective Data Labs CBC & Chem 7: 08/31/21 09:07 08/30/21 03:06 Labs: Laboratory Results - last 24 hr 08/31/21 08/31/21 05:39 09:07 WBC 9.1 RBC 4.42 L D Hgb 9.6 L D Hct 34.5 L D MCV 78.1 L D MCH 21.7 L MCHC 27.8 L RDW Not Reportable Plt Count 383 MPV 8.8 L Absolute Nucleated RBC 0.000 Nucleated RBC % (auto) 0.0 PT 14.6 H INR 1.3 H Procedures Date of Service Date of Service: 08/31/21 Assessment & Plan Assessment and plan (1) Acute kidney injury: Status: Acute (2) Severe anemia: Status: Acute Plan Acute Kidney Injury due to tubular injury ACEI - continue to hold. Can consider loop diuretic to maintain euvolemia if uop declines. hold nsaids, avoid contrast, renal dosing abx. bladder scan for oliguria/anuria. Urine output OK. No reason to suspect GN/AIN Had been getting IV fluids Serum creatinine improving Do not have significant CKD at baseline C/W rest of current management for now Iron panel for anemia. Labs AM. Shall closely follow up Time Spent With Patient Time: Total time spent is greater than 50% in coordination of care (as documented) at patient's floor/unit and/or counseling patient: Time with patient: 25 - 35 minutes Progress Note: Quality Stroke Does the patient have a stroke diagnosis?: No
--- NOTE | 2021-08-31 16:05 | MHC.CM.PN ---
Addendum entered by Marina Wilde RN 08/31/21 16:09: PCP IS DR PARIKH AT [facility]. Original Note: EMR REVIEWED, PT REMAINS ON 4-6L O2 W/OXIMIZER, EGD AND COLONOSCOPY POSTPONED UNTIL SUNDAY 09/03, NO D/C PLANNED FOR TODAY, ANTIC D/C EARLY NEXT WEEK W/NEW VNA. CM WILL CONT TO FOLLOW D/C NEEDS.
[2021-08-31] MEDS: Acetaminophen 325 MG TABLET 650 MG PO (19:59)
[2021-09-01] VITALS (10 sets, daily range): BP systolic 132–155; BP diastolic 60–67; PULSE 63–81; RESP 18–20; TEMP 37.1–37.7; O2SAT 87–100
[2021-09-01] MEDS: Dextrose 5 % and 0.45 % NaCl 1,000 ML 50 ML IVCONT (04:30)
[2021-09-01] MEDS: Albuterol/Iprat 2.5/0.5MG 3 ML AMPUL.NEB INHALE ×3 (07:52→19:24)
[2021-09-01 07:56] LABS: Hematocrit 29.9 % (42.0-52.0); Hemoglobin 8.2 g/dl (14.0-18.0); Mean Corpuscular HGB Conc 27.4 g/dl (31.0-36.0); Mean Corpuscular Hemoglobin 21.5 pg (27.0-33.0); Mean Corpuscular Volume 78.5 fL (80.0-98.0); Mean Platelet Volume 8.8 fL (9.4-12.4); Platelet Count 338 X10*3/uL (160-400); Red Blood Count 3.81 X10*6/uL (4.60-5.80); White Blood Count 7.5 X10*3/uL (4.8-10.8)
--- NOTE | 2021-09-01 08:03 | HO.PM.IMPN ---
Subjective Subjective Date of Service: 09/01/21 Interval History: cc: f/u on synocpe, anemia interv history: no arrhymia, no syncope, no active bleed, no syncope, no arrythmia, he seems more confused this morning and is desatinng into 70s and goes up with O2 Colonoscpy was cancelled yesterday Review of Systems no fever, no gi bleedin seems confused Physical Exam Vital Signs: Vital Signs: Last Vital Signs Temp 99.7 F 09/01/21 07:28 Pulse 81 09/01/21 08:01 Resp 18 09/01/21 08:01 BP 132/60 09/01/21 07:28 Pulse Ox 95 09/01/21 07:28 Oxygen Flow Rate 2 08/29/21 16:30 BMI result Body Mass Index 28.4 Const: Other: General: Oriented to self and aware of being in the hospital Resp: CTA bilateral CVS: S1,S2,RRR GI: +BS, NT, no distention Skin: No rash Neuro: motor grossly intact Psych: flat, confused--not encephalopathy Objective Data Active Medications Acetaminophen (Acetaminophen 325 Mg Tablet) 650 mg PO Q6H PRN PRN Reason: pain/fever Last Admin: 08/31/21 19:59 Dose: 650 mg Documented by: RHIANNON Albuterol/Ipratropium (Albuterol/Iprat 2.5/0.5mg 3 Ml Ampul.Neb) 3 ml INHALE RQ6H WHILE AWAKE [facility] Last Admin: 09/01/21 07:52 Dose: 3 ml Documented by: PHAM Albuterol/Ipratropium (Albuterol/Iprat 2.5/0.5mg 3 Ml Ampul.Neb) 3 ml INHALE RQ4H PRN PRN Reason: Shortness of Breath/Wheezing Heparin Sodium (Porcine) (Heparin Sodium,Porcine 5,000 Unit/Ml Vial) 5,000 unit SUBCUT Q8H [facility] Last Admin: 09/01/21 06:11 Dose: Not Given Documented by: RHIANNON Non-Admin Reason: Patient Refused Dextrose/Sodium Chloride (D51/2ns) 1,000 mls @ 50 mls/hr IVCONT .Q20H [facility] Last Admin: 09/01/21 04:30 Dose: 50 mls/hr Documented by: RHIANNON Melatonin (Melatonin 3 Mg Tablet) 6 mg PO BEDTIME PRN PRN Reason: Insomnia Metoprolol Succinate (Metoprolol Succinate Er 50 Mg Tab.Er.24h) 50 mg PO DAILY [facility]; Protocol Last Admin: 08/31/21 10:35 Dose: 50 mg Documented by: SHAWANDA Oxycodone HCl (Oxycodone Hcl Immed Release 5 Mg Tablet) 5 mg PO Q6H [facility] Last Admin: 09/01/21 04:20 Dose: Not Given Documented by: RHIANNON Non-Admin Reason: pt has no pain Pharmacy Consult (Consult Rx Perform Med Rec) 1 each MISCELLANE ONCE PRN PRN Reason: Consult order Polyethylene Glycol/Electrolytes (Peg 3350/Na Sulf,Bicarb,Cl/Kcl 4,000 Ml Soln.Recon) 4,000 ml PO ONCE@1300 ONE Stop: 09/02/21 13:01 Senna (Sennosides 8.6 Mg Tablet) 17.2 mg PO BEDTIME PRN PRN Reason: Constipation Labs CBC & Chem 7: 08/31/21 09:07 08/30/21 03:06 Labs: Laboratory Results - last 24 hr 08/31/21 09:07 MCV 78.1 L D MCH 21.7 L MCHC 27.8 L RDW Not Reportable Plt Count 383 MPV 8.8 L Absolute Nucleated RBC 0.000 Nucleated RBC % (auto) 0.0 Assessment and Plan (1) Severe anemia: Status: Acute (2) Syncope: Status: Acute Plan 70-year-old male with a past medical history of hypertension, AFib, CHF, asthma presented to the hospital today with chief complaint of brief unresponsive episode.? Brief unresponsive episode:Circumstances unclear and work up is negative including head CT, ECG.. Cardiac telemetry has been negative thus far, probably all realted to anemia Asthma/Mild hypoxia: Patient was saturating 90-93% on Oxymizer; on lung exam noted to have? slightlydiminished breath sounds and occasional expiratory wheezing; Will keep the patient on DuoNebs D-dimer is slightly elevated, VQ scan indeterminate. empric Ceftriaxone for pneumonia History of AFib:? Rate controlled.? Eliquis on hold.? Continue home metoprolol. HANK vs CKD--serum creatine heading in the right direction Anemia:? Acute on chronic anemia with recent admission for anemia and GI advised holding Eliquis and outpatient EGD, will reconsult GI and continue holding Eliquis, agree with transfusion and monitoring of H/H, GI to perfrom colonoscopy today ? History of CHF:systolic vs diastolic, not enough info at this time to determine the nature of heart failure. ? ?diet:? cardiac diet once passes nursing swallow screen.? Confusuion and hypoxic encephalopathy: worsening confusion, check LFTs, [place] Need for inaptient stay: Syncope work up, acute GI bleed work with colonoscopy today, need for transfusion , and now need for hypoxia work up Quality Stroke Does the patient have a stroke diagnosis?: No VTE Prior VTE?: No VTE Risk Level:: Medical - moderate - high VTE Device Contraindication: Treatment Not Indicated VTE Drug Contraindication: N/A - Med Ordered
[2021-09-01 08:38] LABS: ABG Base Excess 7.5 mmol/L; ABG HCO3 34 mmol/L (22-26); ABG pCO2 59 mmHg (32-45); ABG pH 7.36 (7.35-7.45); ABG pO2 75 mmHg (83-108)
[2021-09-01 08:44] LABS: Ammonia 43 umol/L (13-55)
[2021-09-01 09:01] LABS: Alanine Aminotransferase 7 U/L (0-40); Albumin Level 3.1 g/dL (3.5-5.0); Alkaline Phosphatase 112 U/L (39-117); Anion Gap 12 (12-20); Aspartate Amino Transferase 12 U/L (5-37); Bilirubin Direct 0.3 mg/dL (0.0-0.5); Bilirubin Total 0.6 mg/dL (0.0-1.0); Blood Urea Nitrogen 10 mg/dL (9-16); Calcium 8.7 mg/dL (8.4-10.2); Carbon Dioxide 30 mmol/L (22-29); Chloride 103 mmol/L (96-108); Creatinine Clr Calc Pharmacy 74.2; Estimated Glomerular Filt Rate > 60; Glucose Random 107 mg/dL (60-115); Potassium 4.9 mmol/L (3.3-5.1); Sodium 140 mmol/L (135-145); Total Protein 5.7 g/dL (6.5-8.0)
[2021-09-01] MEDS: Metoprolol Succinate ER 50 MG TAB.ER.24H PO (09:14)
[2021-09-01 09:38] LABS: ABG Refer to POC result
[2021-09-01 12:56] LABS: ABG Base Excess 9.1 mmol/L; ABG HCO3 36 mmol/L (22-26); ABG pCO2 62 mmHg (32-45); ABG pH 7.37 (7.35-7.45); ABG pO2 115 mmHg (83-108)
[2021-09-01 13:33] LABS: Hematocrit 30.5 % (42.0-52.0); Hemoglobin 8.3 g/dl (14.0-18.0); Mean Corpuscular HGB Conc 27.2 g/dl (31.0-36.0); Mean Corpuscular Hemoglobin 21.3 pg (27.0-33.0); Mean Corpuscular Volume 78.2 fL (80.0-98.0); Mean Platelet Volume 8.7 fL (9.4-12.4); Platelet Count 340 X10*3/uL (160-400); White Blood Count 7.5 X10*3/uL (4.8-10.8)
--- NOTE | 2021-09-01 13:41 | PC.NURSE ---
pt resting in bed. VSS, disoriented to time and situation. No complaints of pain. No complaints of nausea. Vomited around 1130. MD made aware. RT involved. CXR done results pending. ABGs repeated. Will continue to monitor.
[2021-09-01 13:49] LABS: ABG Refer to POC result
[2021-09-01] MEDS: Heparin Sodium,Porcine 5,000 UNIT/ML VIAL 5000 UNIT SUBCUT ×2 (14:08→21:01)
[2021-09-01] MEDS: Piperacillin Sodium/Tazobactam 4.5 GM in 0.9 % Sodium Chloride 100 ML IV ×2 (15:21→21:00)
--- NOTE | 2021-09-01 16:42 | PM.PNNEP ---
Subjective Subjective Date of Service: 09/01/21 Principal diagnosis: HANK Interval history: cc: f/u on synocpe, anemia S-Cr improving. Chart Reviewed. Events noted. Physical Exam Vital Signs: Vital Signs: Last Vital Signs Temp 99.6 F 09/01/21 15:24 Pulse 76 09/01/21 15:24 Resp 18 09/01/21 15:24 BP 155/67 H 09/01/21 15:24 Pulse Ox 99 09/01/21 15:24 Oxygen Flow Rate 2 08/29/21 16:30 BMI result Body Mass Index 28.4 HENMT: Head: Yes normal to inspection, Yes normocephalic and Yes atraumatic Neck: Neck: Yes normal visual inspection, Yes trachea midline and Yes no JVD Chest: Chest palpation & inspection: normal inspection of the chest Resp: Effort & Inspection: normal respiratory effort Cardio: Jugular venous distension: no JVD Rhythm: regular rhythm Heart sounds: S1 normal heart sound present and S2 normal heart sound present GI: Inspection: Yes normal to inspection Palpation (GI): Soft to palpation Extrem: Other: No edema noted. no clubbing, no cyanosis of extremeties. Objective Data Labs CBC & Chem 7: 09/01/21 13:13 09/01/21 08:31 Labs: Laboratory Results - last 24 hr 09/01/21 09/01/21 09/01/21 07:32 08:31 08:31 WBC 7.5 RBC 3.81 L Hgb 8.2 L Hct 29.9 L MCV 78.5 L MCH 21.5 L MCHC 27.4 L RDW Not Reportable Plt Count 338 MPV 8.8 L Absolute Nucleated RBC 0.000 Nucleated RBC % (auto) 0.0 O2 Saturation ABG pH at Pt Temp ABG pCO2 at Pt Temp ABG pO2 at Pt Temp ABG HCO3 ABG Base Excess (Actual) Sodium 140 Potassium 4.9 Chloride 103 Carbon Dioxide 30 H Anion Gap 12 BUN 10 D Creatinine 0.92 Estim Creat Clear Calc 74.2 Estimated GFR > 60 Random Glucose 107 Calcium 8.7 D Total Bilirubin 0.6 Direct Bilirubin 0.3 AST 12 ALT 7 Alkaline Phosphatase 112 D Ammonia 43 Total Protein 5.7 L Albumin 3.1 L 09/01/21 09/01/21 09/01/21 08:31 12:47 13:13 WBC 7.5 RBC 3.90 L Hgb 8.3 L Hct 30.5 L MCV 78.2 L MCH 21.3 L MCHC 27.2 L RDW Not Reportable Plt Count 340 MPV 8.7 L Absolute Nucleated RBC 0.000 Nucleated RBC % (auto) 0.0 O2 Saturation 95.0 100.0 ABG pH at Pt Temp 7.36 7.37 ABG pCO2 at Pt Temp 59 H 62 H* ABG pO2 at Pt Temp 75 L 115 H ABG HCO3 34 H 36 H ABG Base Excess (Actual) 7.5 9.1 Sodium Potassium Chloride Carbon Dioxide Anion Gap BUN Creatinine Estim Creat Clear Calc Estimated GFR Random Glucose Calcium Total Bilirubin Direct Bilirubin AST ALT Alkaline Phosphatase Ammonia Total Protein Albumin Procedures Date of Service Date of Service: 09/01/21 Assessment & Plan Assessment and plan (1) Acute kidney injury: Status: Acute (2) Severe anemia: Status: Acute Plan Acute Kidney Injury due to tubular injury - resolved. ACEI - continue to hold. WOuld not consider restarting until after colonoscopy. Can consider loop diuretic to maintain euvolemia if uop declines. hold nsaids, avoid contrast, renal dosing abx. bladder scan for oliguria/anuria. Urine output OK. No reason to suspect GN/AIN Had been getting IV fluids Serum creatinine improving Do not have significant CKD at baseline C/W rest of current management for now Labs AM. Shall closely follow up Time Spent With Patient Time: Total time spent is greater than 50% in coordination of care (as documented) at patient's floor/unit and/or counseling patient: Time with patient: 25 - 35 minutes Progress Note: Quality Stroke Does the patient have a stroke diagnosis?: No
[2021-09-02] VITALS (9 sets, daily range): BP systolic 126–164; BP diastolic 58–74; PULSE 62–89; RESP 18–20; TEMP 36.5–37.1; O2SAT 95–100
[2021-09-02] MEDS: Piperacillin Sodium/Tazobactam 4.5 GM in 0.9 % Sodium Chloride 100 ML IV ×4 (02:54→21:20)
[2021-09-02] MEDS: Heparin Sodium,Porcine 5,000 UNIT/ML VIAL 5000 UNIT SUBCUT ×3 (05:50→21:21)
[2021-09-02 06:25] LABS: Hematocrit 29.4 % (42.0-52.0); Hemoglobin 8.3 g/dl (14.0-18.0); Mean Corpuscular HGB Conc 28.2 g/dl (31.0-36.0); Mean Corpuscular Hemoglobin 21.7 pg (27.0-33.0); Mean Platelet Volume 9.1 fL (9.4-12.4); Platelet Count 336 X10*3/uL (160-400); Red Blood Count 3.82 X10*6/uL (4.60-5.80); White Blood Count 7.9 X10*3/uL (4.8-10.8)
[2021-09-02 06:48] LABS: Anion Gap 13 (12-20); Blood Urea Nitrogen 8 mg/dL (9-16); Calcium 8.4 mg/dL (8.4-10.2); Carbon Dioxide 29 mmol/L (22-29); Chloride 100 mmol/L (96-108); Creatinine Clr Calc Pharmacy 83.2; Estimated Glomerular Filt Rate > 60; Glucose Random 93 mg/dL (60-115); Potassium 4.5 mmol/L (3.3-5.1); Sodium 137 mmol/L (135-145)
[2021-09-02] MEDS: Albuterol/Iprat 2.5/0.5MG 3 ML AMPUL.NEB INHALE ×3 (08:04→20:01)
--- NOTE | 2021-09-02 08:23 | P.PNIM_ITS ---
Subjective Subjective Date of Service: 09/02/21 Interval History: cc: f/u on synocpe, anemia and aspiration PNA interv history: He is more alert this morning, nor resp difficutly, no gib Review of Systems no fever, no gi bleedin seems confused Physical Exam 2 Vital Signs: Vital Signs: Last Vital Signs Temp 97.7 F 09/02/21 07:41 Pulse 89 09/02/21 08:05 Resp 18 09/02/21 08:05 BP 152/69 H 09/02/21 07:41 Pulse Ox 99 09/02/21 07:41 Oxygen Flow Rate 2 08/29/21 16:30 BMI result Body Mass Index 28.4 Const: Other: General: Oriented to self and place Resp: fidencio rhonchi CVS: S1,S2,RRR GI: +BS, NT, no distention Skin: No rash Neuro: motor grossly intact Psych: falt, less confused Objective Data Active Medications Acetaminophen (Acetaminophen 325 Mg Tablet) 650 mg PO Q6H PRN PRN Reason: pain/fever Last Admin: 08/31/21 19:59 Dose: 650 mg Documented by: RHIANNON Albuterol/Ipratropium (Albuterol/Iprat 2.5/0.5mg 3 Ml Ampul.Neb) 3 ml INHALE RQ6H WHILE AWAKE [facility] Last Admin: 09/02/21 08:04 Dose: 3 ml Documented by: PHAM Albuterol/Ipratropium (Albuterol/Iprat 2.5/0.5mg 3 Ml Ampul.Neb) 3 ml INHALE RQ4H PRN PRN Reason: Shortness of Breath/Wheezing Heparin Sodium (Porcine) (Heparin Sodium,Porcine 5,000 Unit/Ml Vial) 5,000 unit SUBCUT Q8H [facility] Last Admin: 09/02/21 05:50 Dose: 5,000 unit Documented by: RHIANNON Piperacillin Sod/Tazobactam (Sod 4.5 gm/ Sodium Chloride) 100 mls @ 200 mls/hr IV Q6H [facility] Last Infusion: 09/02/21 03:28 Dose: 0 mls/hr Documented by: RHIANNON Melatonin (Melatonin 3 Mg Tablet) 6 mg PO BEDTIME PRN PRN Reason: Insomnia Metoprolol Succinate (Metoprolol Succinate Er 50 Mg Tab.Er.24h) 50 mg PO DAILY [facility]; Protocol Last Admin: 09/01/21 09:14 Dose: 50 mg Documented by: MALACHI Oxycodone HCl (Oxycodone Hcl Immed Release 5 Mg Tablet) 5 mg PO Q6H [facility] Last Admin: 09/02/21 04:57 Dose: Not Given Documented by: RHIANNON Non-Admin Reason: pt has no pain Pharmacy Consult (Consult Rx Perform Med Rec) 1 each MISCELLANE ONCE PRN PRN Reason: Consult order Polyethylene Glycol/Electrolytes (Peg 3350/Na Sulf,Bicarb,Cl/Kcl 4,000 Ml S oln.Recon) 4,000 ml PO ONCE@1300 ONE Stop: 09/02/21 13:01 Senna (Sennosides 8.6 Mg Tablet) 17.2 mg PO BEDTIME PRN PRN Reason: Constipation Labs CBC & Chem 7: 09/02/21 05:23 09/02/21 05:23 Labs: Laboratory Results - last 24 hr 09/01/21 09/01/21 09/01/21 07:32 08:31 08:31 MCV 78.5 L MCH 21.5 L MCHC 27.4 L RDW Plt Count 338 MPV 8.8 L Absolute Nucleated RBC 0.000 Nucleated RBC % (auto) 0.0 O2 Saturation ABG pH at Pt Temp ABG pCO2 at Pt Temp ABG pO2 at Pt Temp ABG HCO3 ABG Base Excess (Actual) Anion Gap 12 Estim Creat Clear Calc 74.2 Estimated GFR > 60 Random Glucose 107 Calcium 8.7 D Total Bilirubin 0.6 Direct Bilirubin 0.3 AST 12 ALT 7 Alkaline Phosphatase 112 D Ammonia 43 Total Protein 5.7 L Albumin 3.1 L 09/01/21 09/01/21 09/01/21 08:31 12:47 13:13 MCV 78.2 L MCH 21.3 L MCHC 27.2 L RDW Not Reportable Plt Count 340 MPV 8.7 L Absolute Nucleated RBC 0.000 Nucleated RBC % (auto) 0.0 O2 Saturation 95.0 100.0 ABG pH at Pt Temp 7.36 7.37 ABG pCO2 at Pt Temp 59 H 62 H* ABG pO2 at Pt Temp 75 L 115 H ABG HCO3 34 H 36 H ABG Base Excess (Actual) 7.5 9.1 Anion Gap Estim Creat Clear Calc Estimated GFR Random Glucose Calcium Total Bilirubin Direct Bilirubin AST ALT Alkaline Phosphatase Ammonia Total Protein Albumin 09/02/21 09/02/21 05:23 05:23 MCV 77.0 L MCH 21.7 L MCHC 28.2 L RDW TNP Plt Count 336 MPV 9.1 L Absolute Nucleated RBC 0.000 Nucleated RBC % (auto) 0.0 O2 Saturation ABG pH at Pt Temp ABG pCO2 at Pt Temp ABG pO2 at Pt Temp ABG HCO3 ABG Base Excess (Actual) Anion Gap 13 Estim Creat Clear Calc 83.2 Estimated GFR > 60 Random Glucose 93 Calcium 8.4 Total Bilirubin Direct Bilirubin AST ALT Alkaline Phosphatase Ammonia Total Protein Albumin Assessment and Plan (1) Severe anemia: Status: Acute (2) Syncope: Status: Acute Plan 70-year-old male with a past medical history of hypertension, AFib, CHF, asthma presented to the hospital today with chief complaint of brief unresponsive episode.? Brief unresponsive episode:Circumstances unclear and work up is negative including head CT, ECG.. Cardiac telemetry has been negative thus far for arrythmia, probably all related to anemia Asthma/Mild hypoxia: Duoneb Aspriation: PNA, Zosyn History of AFib:? Rate controlled.? Eliquis on hold.? Continue home metoprolol. HANK vs CKD--serum creatine within normal Anemia:? Acute on chronic anemia with recent admission for anemia and GI advised holding Eliquis and outpatient EGD, will reconsult GI and continue holding Eliquis, agree with transfusion and monitoring of H/H, GI to perfrom colonoscopy friday ? History of CHF:systolic vs diastolic, not enough info at this time to determine the nature of heart failure. ? ?diet:? cardiac diet once passes nursing swallow screen.? Confusuion and hypoxic encephalopathy: Overall better today Need for inaptient stay: Syncope work up, acute GI bleed work with colonoscopy today, need for transfusion , and now treatment for aspiration pneumonia Heparin for DVT prophy Quality Stroke Does the patient have a stroke diagnosis?: No VTE Prior VTE?: No VTE Risk Level:: Medical - moderate - high VTE Device Contraindication: Treatment Not Indicated VTE Drug Contraindication: N/A - Med Ordered
[2021-09-02] MEDS: Metoprolol Succinate ER 50 MG TAB.ER.24H PO (09:06)
--- NOTE | 2021-09-02 13:32 | HE.PHANOTE ---
Zosyn Aspiration PNA, continue zosyn for now
[2021-09-02] MEDS: PEG 3350/Na Sulf,Bicarb,Cl/KCL 4,000 ML SOLN.RECON 4000 ML PO (13:53)
--- NOTE | 2021-09-02 18:02 | PM.PNNEP ---
Subjective Subjective Date of Service: 09/02/21 Principal diagnosis: HANK Interval history: cc: f/u on synocpe, anemia and aspiration PNA interv history: Chart Reviewed Events noted. Physical Exam Vital Signs: Vital Signs: Last Vital Signs Temp 98.3 F 09/02/21 15:24 Pulse 79 09/02/21 15:54 Resp 18 09/02/21 15:54 BP 126/58 L 09/02/21 15:24 Pulse Ox 99 09/02/21 15:24 Oxygen Flow Rate 2 08/29/21 16:30 BMI result Body Mass Index 28.4 Const: General: cooperative HENMT: Head: Yes normal to inspection, Yes normocephalic and Yes atraumatic Neck: Neck: Yes normal visual inspection and Yes no JVD Resp: Effort & Inspection: normal respiratory effort Auscultation: clear to auscultation bilaterally Cardio: Jugular venous distension: no JVD Rate: regular rate Rhythm: regular rhythm GI: Auscultation: normal bowel sounds Extrem: Right upper extremity: no joint enlargement Left upper extremity: no joint enlargement Objective Data Labs CBC & Chem 7: 09/02/21 05:23 09/02/21 05:23 Labs: Laboratory Results - last 24 hr 09/02/21 09/02/21 05:23 05:23 WBC 7.9 RBC 3.82 L Hgb 8.3 L Hct 29.4 L MCV 77.0 L MCH 21.7 L MCHC 28.2 L RDW TNP Plt Count 336 MPV 9.1 L Absolute Nucleated RBC 0.000 Nucleated RBC % (auto) 0.0 Sodium 137 Potassium 4.5 Chloride 100 Carbon Dioxide 29 Anion Gap 13 BUN 8 L Creatinine 0.82 Estim Creat Clear Calc 83.2 Estimated GFR > 60 Random Glucose 93 Calcium 8.4 Procedures Date of Service Date of Service: 09/02/21 Assessment & Plan Assessment and plan (1) Acute kidney injury: Status: Acute (2) Severe anemia: Status: Acute Plan Acute Kidney Injury due to tubular injury - resolved. ACEI - ok to restart after colonoscopy. Can consider loop diuretic to maintain euvolemia if uop declines. hold nsaids, avoid contrast, renal dosing abx. bladder scan for oliguria/anuria. Urine output OK. No reason to suspect GN/AIN Had been getting IV fluids. Cr stable Does not have significant CKD at baseline C/W rest of current management for now Labs AM. Shall closely follow up Time Spent With Patient Time: Total time spent is greater than 50% in coordination of care (as documented) at patient's floor/unit and/or counseling patient: Time with patient: 25 - 35 minutes Progress Note: Quality Stroke Does the patient have a stroke diagnosis?: No
[2021-09-03] VITALS (14 sets, daily range): BP systolic 133–188; BP diastolic 44–80; PULSE 64–78; RESP 15–24; TEMP 36–37.8; O2SAT 93–100
[2021-09-03] MEDS: Piperacillin Sodium/Tazobactam 4.5 GM in 0.9 % Sodium Chloride 100 ML IV ×3 (04:09→20:41)
[2021-09-03] MEDS: Heparin Sodium,Porcine 5,000 UNIT/ML VIAL 5000 UNIT SUBCUT (04:11)
[2021-09-03 06:01] LABS: Anion Gap 15 (12-20); Blood Urea Nitrogen 8 mg/dL (9-16); Calcium 8.4 mg/dL (8.4-10.2); Carbon Dioxide 28 mmol/L (22-29); Chloride 100 mmol/L (96-108); Creatinine Clr Calc Pharmacy 86.4; Estimated Glomerular Filt Rate > 60; Glucose Random 71 mg/dL (60-115); Potassium 4.2 mmol/L (3.3-5.1); Sodium 139 mmol/L (135-145)
[2021-09-03] MEDS: Albuterol/Iprat 2.5/0.5MG 3 ML AMPUL.NEB INHALE ×2 (07:33→19:58)
[2021-09-03] MEDS: Metoprolol Succinate ER 50 MG TAB.ER.24H PO (08:23)
--- NOTE | 2021-09-03 08:24 | HO.PM.IMPN ---
Subjective Subjective Date of Service: 09/03/21 Interval History: cc: f/u on synocpe, anemia and aspiration PNA and scott pastrana interv history: He is more alert this morning, nor resp difficutly, no gib, oxygenation has improved, Review of Systems no fever, no gi bleedin seems confused Physical Exam Vital Signs: Vital Signs: Last Vital Signs Temp 96.8 F 09/03/21 07:29 Pulse 74 09/03/21 07:34 Resp 20 09/03/21 07:34 BP 159/62 H 09/03/21 03:30 Pulse Ox 94 09/03/21 07:29 Oxygen Flow Rate 2 08/29/21 16:30 BMI result Body Mass Index 28.4 Const: Other: General: Oriented to self and place Resp: fidencio rhonchi CVS: S1,S2,RRR GI: +BS, NT, no distention Skin: No rash Neuro: motor grossly intact Psych: falt, less confused Objective Data Active Medications Acetaminophen (Acetaminophen 325 Mg Tablet) 650 mg PO Q6H PRN PRN Reason: pain/fever Last Admin: 08/31/21 19:59 Dose: 650 mg Documented by: RHIANNON Albuterol/Ipratropium (Albuterol/Iprat 2.5/0.5mg 3 Ml Ampul.Neb) 3 ml INHALE RQ6H WHILE AWAKE [facility] Last Admin: 09/03/21 07:33 Dose: 3 ml Documented by: JAS Albuterol/Ipratropium (Albuterol/Iprat 2.5/0.5mg 3 Ml Ampul.Neb) 3 ml INHALE RQ4H PRN PRN Reason: Shortness of Breath/Wheezing Heparin Sodium (Porcine) (Heparin Sodium,Porcine 5,000 Unit/Ml Vial) 5,000 unit SUBCUT Q8H [facility] Last Admin: 09/03/21 04:11 Dose: 5,000 unit Documented by: YAMIL Piperacillin Sod/Tazobactam (Sod 4.5 gm/ Sodium Chloride) 100 mls @ 200 mls/hr IV Q6H [facility] Last Infusion: 09/03/21 04:45 Dose: 0 mls/hr Documented by: YAMIL Melatonin (Melatonin 3 Mg Tablet) 6 mg PO BEDTIME PRN PRN Reason: Insomnia Metoprolol Succinate (Metoprolol Succinate Er 50 Mg Tab.Er.24h) 50 mg PO DAILY [facility]; Protocol Last Admin: 09/02/21 09:06 Dose: 50 mg Documented by: MALACHI Oxycodone HCl (Oxycodone Hcl Immed Release 5 Mg Tablet) 5 mg PO Q6H [facility] Last Admin: 09/03/21 04:13 Dose: Not Given Documented by: YAMIL Non-Admin Reason: pt denies pain Pharmacy Consult (Consult Rx Perform Med Rec) 1 each MISCELLANE ONCE PRN PRN Reason: Consult order Senna (Sennosides 8.6 Mg Tablet) 17.2 mg PO BEDTIME PRN PRN Reason: Constipation Labs CBC & Chem 7: 09/02/21 05:23 09/03/21 05:13 Labs: Laboratory Results - last 24 hr 09/03/21 05:13 Anion Gap 15 Estim Creat Clear Calc 86.4 Estimated GFR > 60 Random Glucose 71 Calcium 8.4 Assessment and Plan (1) Severe anemia: Status: Acute (2) Syncope: Status: Acute Plan 70-year-old male with a past medical history of hypertension, AFib, CHF, asthma presented to the hospital today with chief complaint of brief unresponsive episode.? Brief unresponsive episode:Circumstances unclear and work up is negative including head CT, ECG.. Cardiac telemetry has been negative thus far for arrythmia, probably all related to anemia Asthma/Mild hypoxia: Duoneb Aspriation: PNA, Zosyn change to Augmentin later today if not tomorrow morning History of AFib:? Rate controlled.? Eliquis on hold.? Continue home metoprolol. HANK vs CKD--serum creatine within normal Anemia acute blood loss s/p transfusion, planned for colonoscopy today, could not tolerate last week History of CHF:systolic vs diastolic, not enough info at this time to determine the nature of heart failure. ? ?diet:? cardiac diet once passes nursing swallow screen.? Confusuion and hypoxic encephalopathy: Overall better today Need for inaptient stay: Syncope work up, acute GI bleed need work up with colonoscopy today, , and now requiring IV antibiotics for aspiration pneumonia with hypoxia Heparin for DVT prophy Quality Stroke Does the patient have a stroke diagnosis?: No VTE Prior VTE?: No VTE Risk Level:: Medical - moderate - high VTE Device Contraindication: Treatment Not Indicated VTE Drug Contraindication: N/A - Med Ordered
--- NOTE | 2021-09-03 09:05 | HE.PHANOTE ---
Nikolay Spoke to Dr. Quinonez, pt is having a procedure and is NPO, waiting until after procedure to reevaluate.
--- NOTE | 2021-09-03 12:48 | MHC.CM.PN ---
EMR REVIEWED, PER HOSPITALIST PT MAY BE ABLE TO D/C TOMORROW 09/04, THIS CM MET W/PT'S DTR/HCP MARIAH [phone] AT BEDSIDE TO DISCUSS SNF CHOICES PT IS BEING RECOMMENDED STR BY PT, PER MARIAH SHE PREFERS #1 [facility] #[facility] #3 [facility] IF THEY ARE UNABLE TO OFFER MARIAH PREFERS ANY SNF IN [facility]. REFERRALS PLACED TO PREFERRED SNF'S AND [facility], CM WILL CONT TO FOLLOW D/C NEEDS.
--- NOTE | 2021-09-03 13:17 | MHC.SLORD ---
Speech Language Pathology Order Status: Pt is now [employer]IFT [employer], was made NPO on 09/01/21 after significant drop in O2 Sat when eating breakfast/clinical signs aspiration. Pt was asleep when attempted today, Son/Caregiver not present.
--- NOTE | 2021-09-03 13:21 | MHC.SLORD ---
Speech Language Pathology Order Status: Pt is NPO for colonoscopy. Will re-attempt tomorrow if still inpatient at that time.
--- NOTE | 2021-09-03 14:22 | MHC.CM.PN ---
CC OFFERING PT A BED EVEN W/UNVACCINATED STATUS, CM CONTACTED PT'S DTR/HCP MARIAH AT [phone] AND SHE HAS ACCEPTED BED OFFER, ANTIC PT WILL D/C TOMORROW [facility]IA [facility] FOR TRANSPORT.
--- NOTE | 2021-09-03 14:52 | PC.NURSE ---
2 FLEETS GIVEN RESULTS 3 LARGE WATERY LIQUID BROWN STOOL ABD LARGE AND DISTENDED [id number]
--- NOTE | 2021-09-03 15:17 | HO.ANESPROP2 ---
[facility] Active Problems Active Problems: All Active Problems (Updated 08/30/21 @ 09:49 by Noah Quinonez MD) Syncope (Acute) Acute kidney injury (Acute) Fracture of right ulna (Acute) Severe anemia (Acute) Past Medical History Medical History Afib CHF (congestive heart failure) Family History Family History Brother Pancreatic cancer Other No family history of coronary artery disease Family history of problems with anesthesia: No Surgical History Surgical History No pertinent past surgical history History of Problems with Anesthesia: No Social History Social History Household Members: None Housing: House Do you presently have visiting nurse or other home services: No Alcohol intake: never Patient Tobacco Use Status: Never used Tobacco Substance Use Type: Former Substance User Advance Directives Date on File: 08/21/21 service: Yes Current occupational status: retired [employer] Allergies Allergy/AdvReac Type Severity Reaction Status Date / Time No Known Allergies Allergy Verified 08/29/21 16:29 Active Medications: Current Medications Acetaminophen (Acetaminophen 325 Mg Tablet) 650 mg PO Q6H PRN PRN Reason: pain/fever Last Admin: 08/31/21 19:59 Dose: 650 mg Documented by: Albuterol/Ipratropium (Albuterol/Iprat 2.5/0.5mg 3 Ml Ampul.Neb) 3 ml INHALE RQ6H WHILE AWAKE [facility] Last Admin: 09/03/21 15:16 Dose: Not Given Documented by: Albuterol/Ipratropium (Albuterol/Iprat 2.5/0.5mg 3 Ml Ampul.Neb) 3 ml INHALE RQ4H PRN PRN Reason: Shortness of Breath/Wheezing Heparin Sodium (Porcine) (Heparin Sodium,Porcine 5,000 Unit/Ml Vial) 5,000 unit SUBCUT Q8H [facility] Last Admin: 09/03/21 14:59 Dose: Not Given Documented by: Piperacillin Sod/Tazobactam (Sod 4.5 gm/ Sodium Chloride) 100 mls @ 200 mls/hr IV Q6H [facility] Last Infusion: 09/03/21 09:00 Dose: Infused Documented by: Lactated Ringer's (Lr) 1,000 mls @ 50 mls/hr IVCONT .Q20H [facility] Melatonin (Melatonin 3 Mg Tablet) 6 mg PO BEDTIME PRN PRN Reason: Insomnia Metoprolol Succinate (Metoprolol Succinate Er 50 Mg Tab.Er.24h) 50 mg PO DAILY [facility]; Protocol Last Admin: 09/03/21 08:23 Dose: 50 mg Documented by: Oxycodone HCl (Oxycodone Hcl Immed Release 5 Mg Tablet) 5 mg PO Q6H [facility] Last Admin: 09/03/21 09:00 Dose: Not Given Documented by: Pharmacy Consult (Consult Rx Perform Med Rec) 1 each MISCELLANE ONCE PRN PRN Reason: Consult order Senna (Sennosides 8.6 Mg Tablet) 17.2 mg PO BEDTIME PRN PRN Reason: Constipation Home Medications Medication Instructions Recorded Confirmed Last Taken Type fluticasone propionate 110 1 puff PO BID 08/21/21 08/29/21 Unknown History mcg/actuation HFA aerosol inhaler (Flovent HFA) furosemide 40 mg tablet 1 tab PO DAILY 08/21/21 08/29/21 Unknown History lisinopril 5 mg tablet 1 tab PO DAILY 08/21/21 08/29/21 Unknown History metoprolol succinate 50 mg 50 mg PO DAILY 08/21/21 08/29/21 Unknown History tablet,extended release 24 hr oxycodone 5 mg tablet 1 tab PO Q6-8H 08/29/21 08/29/21 08/29/21 History Exam Exam Date and Time: September 03, 2021 1517 Height,Weight and Vital Signs: Height 5 ft 6 in Weight 79.9 kg Last Vital Signs Temp 98.3 F 09/03/21 14:09 Pulse 66 09/03/21 14:09 Resp 24 H 09/03/21 14:09 BP 172/44 H 09/03/21 14:09 Pulse Ox 95 09/03/21 14:09 Oxygen Flow Rate 2 08/29/21 16:30 Pertinent Lab Results Pertinent Lab Results: Laboratory Tests 08/29/21 08/29/21 08/29/21 18:23 18:23 18:23 WBC 10.1 RBC 3.87 L Hgb 7.3 L Hct 27.0 L MCV 69.8 L MCH 18.9 L MCHC 27.0 L RDW 30.1 H Plt Count 412 H MPV 8.9 L Immature Gran % (Auto) 0.4 Neut % (Auto) 58.8 Lymph % (Auto) 12.2 L [place] % (Auto) 10.3 Eos % (Auto) 17.3 H Baso % (Auto) 1.0 Lymph # (Auto) 1.2 [place] # (Auto) 1.0 Eos # (Auto) 1.7 H Baso # (Auto) 0.1 Abs Immat Gran (auto) 0.04 H Absolute Neuts (auto) 5.9 Absolute Nucleated RBC 0.000 Nucleated RBC % (auto) 0.0 Smear Path Review PT 19.7 H INR 1.7 H D-Dimer High Sensitivty O2 Saturation ABG pH at Pt Temp ABG pCO2 at Pt Temp ABG pO2 at Pt Temp ABG HCO3 ABG Base Excess (Actual) VBG pH VBG pCO2 VBG pO2 VBG HCO3 VBG O2 Saturation VBG Base Excess Sodium 135 Potassium 4.5 Chloride 97 Carbon Dioxide 26 Anion Gap 17 BUN 40 H D Creatinine 2.39 H Estim Creat Clear Calc 28.5 Estimated GFR 27 Random Glucose 91 Lactic Acid Calcium 8.6 Magnesium 2.2 Total Bilirubin 0.3 Direct Bilirubin 0.2 AST 18 D ALT 12 Alkaline Phosphatase 144 H Ammonia Troponin I High Sens B-Natriuretic Peptide Total Protein 6.5 Albumin 3.6 Urine Color Urine Appearance Urine pH Ur Specific [place] Urine Protein Urine Glucose (UA) Urine Ketones Urine Blood Urine Nitrite Ur Leukocyte Esterase Urine RBC Urine WBC Ur Squamous Epith Cells Urine Bacteria Hyaline Casts Urine Opiates Screen Urine Fentanyl Screen Ur Barbiturates Screen Ur Phencyclidine Scrn Ur Amphetamines Screen U Benzodiazepines Scrn Urine Cocaine Screen U Marijuana (THC) Screen Ethyl Alcohol COVID-19 (ELIUD) COVID-19 Clin Com Blood Type Antibody Screen Crossmatch 08/29/21 08/29/21 08/29/21 18:23 18:23 18:23 WBC RBC Hgb Hct MCV MCH MCHC RDW Plt Count MPV Immature Gran % (Auto) Neut % (Auto) Lymph % (Auto) [place] % (Auto) Eos % (Auto) Baso % (Auto) Lymph # (Auto) [place] # (Auto) Eos # (Auto) Baso # (Auto) Abs Immat Gran (auto) Absolute Neuts (auto) Absolute Nucleated RBC Nucleated RBC % (auto) Smear Path Review PT INR D-Dimer High Sensitivty O2 Saturation ABG pH at Pt Temp ABG pCO2 at Pt Temp ABG pO2 at Pt Temp ABG HCO3 ABG Base Excess (Actual) VBG pH VBG pCO2 VBG pO2 VBG HCO3 VBG O2 Saturation VBG Base Excess Sodium Potassium Chloride Carbon Dioxide Anion Gap BUN Creatinine Estim Creat Clear Calc Estimated GFR Random Glucose Lactic Acid 0.9 Calcium Magnesium Total Bilirubin Direct Bilirubin AST ALT Alkaline Phosphatase Ammonia Troponin I High Sens 11.5 B-Natriuretic Peptide 772 H Total Protein Albumin Urine Color Urine Appearance Urine pH Ur Specific [place] Urine Protein Urine Glucose (UA) Urine Ketones Urine Blood Urine Nitrite Ur Leukocyte Esterase Urine RBC Urine WBC Ur Squamous Epith Cells Urine Bacteria Hyaline Casts Urine Opiates Screen Urine Fentanyl Screen Ur Barbiturates Screen Ur Phencyclidine Scrn Ur Amphetamines Screen U Benzodiazepines Scrn Urine Cocaine Screen U Marijuana (THC) Screen Ethyl Alcohol COVID-19 (ELIUD) Negative COVID-19 Clin Com See Note Blood Type Antibody Screen Crossmatch 08/29/21 08/29/21 08/29/21 18:23 18:23 18:26 WBC RBC Hgb Hct MCV MCH MCHC RDW Plt Count MPV Immature Gran % (Auto) Neut % (Auto) Lymph % (Auto) [place] % (Auto) Eos % (Auto) Baso % (Auto) Lymph # (Auto) [place] # (Auto) Eos # (Auto) Baso # (Auto) Abs Immat Gran (auto) Absolute Neuts (auto) Absolute Nucleated RBC Nucleated RBC % (auto) Smear Path Review PT INR D-Dimer High Sensitivty O2 Saturation ABG pH at Pt Temp ABG pCO2 at Pt Temp ABG pO2 at Pt Temp ABG HCO3 ABG Base Excess (Actual) VBG pH 7.29 L VBG pCO2 58 VBG pO2 71 VBG HCO3 28 H VBG O2 Saturation 90.0 VBG Base Excess 1.3 Sodium Potassium Chloride Carbon Dioxide Anion Gap BUN Creatinine Estim Creat Clear Calc Estimated GFR Random Glucose Lactic Acid Calcium Magnesium Total Bilirubin Direct Bilirubin AST ALT Alkaline Phosphatase Ammonia Troponin I High Sens B-Natriuretic Peptide Total Protein Albumin Urine Color Urine Appearance Urine pH Ur Specific [place] Urine Protein Urine Glucose (UA) Urine Ketones Urine Blood Urine Nitrite Ur Leukocyte Esterase Urine RBC Urine WBC Ur Squamous Epith Cells Urine Bacteria Hyaline Casts Urine Opiates Screen Urine Fentanyl Screen Ur Barbiturates Screen Ur Phencyclidine Scrn Ur Amphetamines Screen U Benzodiazepines Scrn Urine Cocaine Screen U Marijuana (THC) Screen Ethyl Alcohol < 10 COVID-19 (ELIUD) COVID-19 Clin Com Blood Type O Positive Antibody Screen NEGATIVE Crossmatch See Detail 08/29/21 08/30/21 08/30/21 21:12 01:51 01:51 WBC RBC Hgb Hct MCV MCH MCHC RDW Plt Count MPV Immature Gran % (Auto) Neut % (Auto) Lymph % (Auto) [place] % (Auto) Eos % (Auto) Baso % (Auto) Lymph # (Auto) [place] # (Auto) Eos # (Auto) Baso # (Auto) Abs Immat Gran (auto) Absolute Neuts (auto) Absolute Nucleated RBC Nucleated RBC % (auto) Smear Path Review PT INR D-Dimer High Sensitivty O2 Saturation ABG pH at Pt Temp ABG pCO2 at Pt Temp ABG pO2 at Pt Temp ABG HCO3 ABG Base Excess (Actual) VBG pH VBG pCO2 VBG pO2 VBG HCO3 VBG O2 Saturation VBG Base Excess Sodium 136 Potassium 4.6 Chloride 100 Carbon Dioxide 24 Anion Gap 17 BUN 38 H Creatinine 2.18 H Estim Creat Clear Calc 31.3 Estimated GFR 30 Random Glucose 82 Lactic Acid Calcium 8.2 L Magnesium Total Bilirubin Direct Bilirubin AST ALT Alkaline Phosphatase Ammonia Troponin I High Sens B-Natriuretic Peptide Total Protein Albumin Urine Color YELLOW Urine Appearance HAZY Urine pH 6.0 Ur Specific [place] 1.025 Urine Protein NEG Urine Glucose (UA) NEG Urine Ketones NEG Urine Blood 1+ H Urine Nitrite NEG Ur Leukocyte Esterase NEG Urine RBC 1-4 Urine WBC 0 Ur Squamous Epith Cells 3+ Urine Bacteria NONE Hyaline Casts 5-9 Urine Opiates Screen POSITIVE H Urine Fentanyl Screen Not Detected Ur Barbiturates Screen Not Detected Ur Phencyclidine Scrn Not Detected Ur Amphetamines Screen Not Detected U Benzodiazepines Scrn Not Detected Urine Cocaine Screen POSITIVE H U Marijuana (THC) Screen Not Detected Ethyl Alcohol COVID-19 (ELIUD) COVID-19 Clin Com Blood Type Antibody Screen Crossmatch 08/30/21 08/30/21 08/30/21 01:51 03:06 03:06 WBC 9.2 RBC 3.48 L Hgb 6.7 L* Hct 24.8 L MCV 71.3 L MCH 19.3 L MCHC 27.0 L RDW 29.7 H Plt Count 366 MPV 8.8 L Immature Gran % (Auto) 0.2 Neut % (Auto) 57.3 Lymph % (Auto) 11.5 L [place] % (Auto) 10.6 Eos % (Auto) 19.5 H Baso % (Auto) 0.9 Lymph # (Auto) 1.1 L [place] # (Auto) 1.0 Eos # (Auto) 1.8 H Baso # (Auto) 0.1 Abs Immat Gran (auto) 0.02 Absolute Neuts (auto) 5.3 Absolute Nucleated RBC 0.000 Nucleated RBC % (auto) 0.0 Smear Path Review SEE NOTE PT INR D-Dimer High Sensitivty 564 O2 Saturation ABG pH at Pt Temp ABG pCO2 at Pt Temp ABG pO2 at Pt Temp ABG HCO3 ABG Base Excess (Actual) VBG pH VBG pCO2 VBG pO2 VBG HCO3 VBG O2 Saturation VBG Base Excess Sodium 136 Potassium 4.7 Chloride 102 Carbon Dioxide 25 Anion Gap 14 BUN 34 H Creatinine 1.83 H Estim Creat Clear Calc 37.3 Estimated GFR 37 Random Glucose 89 Lactic Acid Calcium 8.2 L Magnesium Total Bilirubin Direct Bilirubin AST ALT Alkaline Phosphatase Ammonia Troponin I High Sens B-Natriuretic Peptide Total Protein Albumin Urine Color Urine Appearance Urine pH Ur Specific [place] Urine Protein Urine Glucose (UA) Urine Ketones Urine Blood Urine Nitrite Ur Leukocyte Esterase Urine RBC Urine WBC Ur Squamous Epith Cells Urine Bacteria Hyaline Casts Urine Opiates Screen Urine Fentanyl Screen Ur Barbiturates Screen Ur Phencyclidine Scrn Ur Amphetamines Screen U Benzodiazepines Scrn Urine Cocaine Screen U Marijuana (THC) Screen Ethyl Alcohol COVID-19 (ELIUD) COVID-19 Clin Com Blood Type Antibody Screen Crossmatch 08/30/21 08/31/21 08/31/21 03:06 05:39 09:07 WBC 9.1 RBC 4.42 L D Hgb 9.6 L D Hct 34.5 L D MCV 78.1 L D MCH 21.7 L MCHC 27.8 L RDW Not Reportable Plt Count 383 MPV 8.8 L Immature Gran % (Auto) Neut % (Auto) Lymph % (Auto) [place] % (Auto) Eos % (Auto) Baso % (Auto) Lymph # (Auto) [place] # (Auto) Eos # (Auto) Baso # (Auto) Abs Immat Gran (auto) Absolute Neuts (auto) Absolute Nucleated RBC 0.000 Nucleated RBC % (auto) 0.0 Smear Path Review PT 14.6 H INR 1.3 H D-Dimer High Sensitivty O2 Saturation ABG pH at Pt Temp ABG pCO2 at Pt Temp ABG pO2 at Pt Temp ABG HCO3 ABG Base Excess (Actual) VBG pH VBG pCO2 VBG pO2 VBG HCO3 VBG O2 Saturation VBG Base Excess Sodium Potassium Chloride Carbon Dioxide Anion Gap BUN Creatinine Estim Creat Clear Calc Estimated GFR Random Glucose Lactic Acid Calcium Magnesium Total Bilirubin Direct Bilirubin AST ALT Alkaline Phosphatase Ammonia Troponin I High Sens 12.6 B-Natriuretic Peptide Total Protein Albumin Urine Color Urine Appearance Urine pH Ur Specific [place] Urine Protein Urine Glucose (UA) Urine Ketones Urine Blood Urine Nitrite Ur Leukocyte Esterase Urine RBC Urine WBC Ur Squamous Epith Cells Urine Bacteria Hyaline Casts Urine Opiates Screen Urine Fentanyl Screen Ur Barbiturates Screen Ur Phencyclidine Scrn Ur Amphetamines Screen U Benzodiazepines Scrn Urine Cocaine Screen U Marijuana (THC) Screen Ethyl Alcohol COVID-19 (ELIUD) COVID-19 Clin Com Blood Type Antibody Screen Crossmatch 09/01/21 09/01/21 09/01/21 07:32 08:31 08:31 WBC 7.5 RBC 3.81 L Hgb 8.2 L Hct 29.9 L MCV 78.5 L MCH 21.5 L MCHC 27.4 L RDW Not Reportable Plt Count 338 MPV 8.8 L Immature Gran % (Auto) Neut % (Auto) Lymph % (Auto) [place] % (Auto) Eos % (Auto) Baso % (Auto) Lymph # (Auto) [place] # (Auto) Eos # (Auto) Baso # (Auto) Abs Immat Gran (auto) Absolute Neuts (auto) Absolute Nucleated RBC 0.000 Nucleated RBC % (auto) 0.0 Smear Path Review PT INR D-Dimer High Sensitivty O2 Saturation ABG pH at Pt Temp ABG pCO2 at Pt Temp ABG pO2 at Pt Temp ABG HCO3 ABG Base Excess (Actual) VBG pH VBG pCO2 VBG pO2 VBG HCO3 VBG O2 Saturation VBG Base Excess Sodium 140 Potassium 4.9 Chloride 103 Carbon Dioxide 30 H Anion Gap 12 BUN 10 D Creatinine 0.92 Estim Creat Clear Calc 74.2 Estimated GFR > 60 Random Glucose 107 Lactic Acid Calcium 8.7 D Magnesium Total Bilirubin 0.6 Direct Bilirubin 0.3 AST 12 ALT 7 Alkaline Phosphatase 112 D Ammonia 43 Troponin I High Sens B-Natriuretic Peptide Total Protein 5.7 L Albumin 3.1 L Urine Color Urine Appearance Urine pH Ur Specific [place] Urine Protein Urine Glucose (UA) Urine Ketones Urine Blood Urine Nitrite Ur Leukocyte Esterase Urine RBC Urine WBC Ur Squamous Epith Cells Urine Bacteria Hyaline Casts Urine Opiates Screen Urine Fentanyl Screen Ur Barbiturates Screen Ur Phencyclidine Scrn Ur Amphetamines Screen U Benzodiazepines Scrn Urine Cocaine Screen U Marijuana (THC) Screen Ethyl Alcohol COVID-19 (ELIUD) COVID-19 Clin Com Blood Type Antibody Screen Crossmatch 09/01/21 09/01/21 09/01/21 08:31 12:47 13:13 WBC 7.5 RBC 3.90 L Hgb 8.3 L Hct 30.5 L MCV 78.2 L MCH 21.3 L MCHC 27.2 L RDW Not Reportable Plt Count 340 MPV 8.7 L Immature Gran % (Auto) Neut % (Auto) Lymph % (Auto) [place] % (Auto) Eos % (Auto) Baso % (Auto) Lymph # (Auto) [place] # (Auto) Eos # (Auto) Baso # (Auto) Abs Immat Gran (auto) Absolute Neuts (auto) Absolute Nucleated RBC 0.000 Nucleated RBC % (auto) 0.0 Smear Path Review PT INR D-Dimer High Sensitivty O2 Saturation 95.0 100.0 ABG pH at Pt Temp 7.36 7.37 ABG pCO2 at Pt Temp 59 H 62 H* ABG pO2 at Pt Temp 75 L 115 H ABG HCO3 34 H 36 H ABG Base Excess (Actual) 7.5 9.1 VBG pH VBG pCO2 VBG pO2 VBG HCO3 VBG O2 Saturation VBG Base Excess Sodium Potassium Chloride Carbon Dioxide Anion Gap BUN Creatinine Estim Creat Clear Calc Estimated GFR Random Glucose Lactic Acid Calcium Magnesium Total Bilirubin Direct Bilirubin AST ALT Alkaline Phosphatase Ammonia Troponin I High Sens B-Natriuretic Peptide Total Protein Albumin Urine Color Urine Appearance Urine pH Ur Specific [place] Urine Protein Urine Glucose (UA) Urine Ketones Urine Blood Urine Nitrite Ur Leukocyte Esterase Urine RBC Urine WBC Ur Squamous Epith Cells Urine Bacteria Hyaline Casts Urine Opiates Screen Urine Fentanyl Screen Ur Barbiturates Screen Ur Phencyclidine Scrn Ur Amphetamines Screen U Benzodiazepines Scrn Urine Cocaine Screen U Marijuana (THC) Screen Ethyl Alcohol COVID-19 (ELIUD) COVID-19 [employer] Com Blood Type Antibody Screen Crossmatch 09/02/21 09/02/21 09/03/21 05:23 05:23 05:13 WBC 7.9 RBC 3.82 L Hgb 8.3 L Hct 29.4 L MCV 77.0 L MCH 21.7 L MCHC 28.2 L RDW TNP Plt Count 336 MPV 9.1 L Immature Gran % (Auto) Neut % (Auto) Lymph % (Auto) [place] % (Auto) Eos % (Auto) Baso % (Auto) Lymph # (Auto) [place] # (Auto) Eos # (Auto) Baso # (Auto) Abs Immat Gran (auto) Absolute Neuts (auto) Absolute Nucleated RBC 0.000 Nucleated RBC % (auto) 0.0 Smear Path Review PT INR D-Dimer High Sensitivty O2 Saturation ABG pH at Pt Temp ABG pCO2 at Pt Temp ABG pO2 at Pt Temp ABG HCO3 ABG Base Excess (Actual) VBG pH VBG pCO2 VBG pO2 VBG HCO3 VBG O2 Saturation VBG Base Excess Sodium 137 139 Potassium 4.5 4.2 Chloride 100 100 Carbon Dioxide 29 28 Anion Gap 13 15 BUN 8 L 8 L Creatinine 0.82 0.79 Estim Creat Clear Calc 83.2 86.4 Estimated GFR > 60 > 60 Random Glucose 93 71 Lactic Acid Calcium 8.4 8.4 Magnesium Total Bilirubin Direct Bilirubin AST ALT Alkaline Phosphatase Ammonia Troponin I High Sens B-Natriuretic Peptide Total Protein Albumin Urine Color Urine Appearance Urine pH Ur Specific [place] Urine Protein Urine Glucose (UA) Urine Ketones Urine Blood Urine Nitrite Ur Leukocyte Esterase Urine RBC Urine WBC Ur Squamous Epith Cells Urine Bacteria Hyaline Casts Urine Opiates Screen Urine Fentanyl Screen Ur Barbiturates Screen Ur Phencyclidine Scrn Ur Amphetamines Screen U Benzodiazepines Scrn Urine Cocaine Screen U Marijuana (THC) Screen Ethyl Alcohol COVID-19 (ELIUD) COVID-19 [employer] Com Blood Type Antibody Screen Crossmatch Airway Mallampati Class: II TM Dist: >3cm Neck ROM: Full Heart: rrr Lungs: cta Assessment and Plan Assessment Anesthesia Assessment: Anesthesia Plan Discussed and Chart Reviewed Final Anesthetic Review Family History of Problems with Anesthesia: No History of Problems with Anesthesia: No NPO: Yes ASA Class: III Final Preanesthetic Review: No Changes in Pt Med Stat, Meds/Allgs Chart Reviewed and Consent Obtained/Reviewed Patient Risk: Intermediate Procedure Risk: Intermediate Anesthetic Plan Anesthetic Plan: MAC: Disposition: Standard PACU
[2021-09-03] MEDS: Lactated Ringers 1,000 ML 50 ML IVCONT ×2 (15:40→20:42)
--- NOTE | 2021-09-03 17:57 | PM.OP ---
Brief Operative Note Date of Service: 09/03/21 Pre-op diagnosis: Anemia Post-op diagnosis: other (Gastric ulcer, Gastritis, Esophagitis,Hiatal hernia, Diverticulosis, Internal hemorrhoids) Procedure: EGD with biopsies, Colonoscopy to the cecum Surgeon: Michael Pritchett Anesthesia: MAC Was an Dental Assistant used for this Procedure?: No Estimated blood loss (mL): 3.0 Pathology: other (A. Descending duodenum B. Gastric antrum C. Gastric ulcer D. EG JUnction at 35cm) Condition: stable Disposition: PACU
--- NOTE | 2021-09-03 17:59 | P.EN_ITS ---
Event Note Date of Service: 09/03/21 Event Note: GI-Full note dictated EGD with biopsies 1. 15mm benign appearing and inactive proximal gastric ulcer on lesser curve, just beneath the HH-bx taken 2. Erosive antral gastritis-biopsies taken 3. GERD with esophagitis-Bx taken at EG Junction at 35cm 4. Normal duodenum-Bx taken Colonoscopy to the cecum 1. Sigmoid diverticulosis 2. Internal hemorrhoids 3. Prep was good for the most part---no bleeding nor old blood 4. No polyps nor AVM's Imp: Suspect anemia is related to the EGD findings Rec: Advance diet, start Omeprazole 40mg QD, and start Iron. F/U labs in AM. I D/C'd the SQ Heparin and he should avoid all ASA and NSAIDs penitentiary. D/W daughter, Emilie. Thanks
[2021-09-04] VITALS: BP 184/80; PULSE 69; RESP 18; TEMP 36.8; O2SAT 100
[2021-09-04] MEDS: Acetaminophen 325 MG TABLET 650 MG PO (00:01)
[2021-09-04] MEDS: Melatonin 3 MG TABLET 6 MG PO (00:01)
--- NOTE | 2021-09-04 00:01 | OP_ITS ---
SURGEON: Michael Pritchett MD INDICATIONS: The patient presents for evaluation of anemia. Full consent has been obtained from the patient and his daughter, Emilie, including risks of bleeding and perforation. PREOPERATIVE DIAGNOSIS: Anemia. POSTOPERATIVE DIAGNOSIS: Anemia, proximal gastric ulcer, erosive gastritis, hiatal hernia, esophagitis, rule out celiac disease, diverticulosis, internal hemorrhoids. PROCEDURE PERFORMED: Esophagogastroduodenoscopy with biopsies and colonoscopy to the cecum. ESTIMATED BLOOD LOSS: COMPLICATIONS: ANESTHESIA: Medication use, monitored anesthesia care. ASSISTANTS: SPECIMENS: DESCRIPTION OF PROCEDURE: The patient was placed in the left lateral decubitus position. The Olympus video gastroscope was passed in the posterior oropharynx and the upper esophagus under direct vision. The scope was passed slowly into the distal esophagus. The gastroesophageal junction appeared at 35 cm. This area was notable for some erythema, edema, and a single erosion. There was no mass. There was no gross evidence of Adams esophagus. The scope entered into the stomach. There was a small to moderate-sized hiatal hernia. The hiatal hernia mucosa appeared normal. The scope was advanced to the pylorus, and the duodenum was cannulated to the descending portion. The duodenum including the bulb appeared normal without mass or ulceration. Biopsies were obtained from the 2nd and 3rd portions of the duodenum. The scope was withdrawn back to the stomach. The gastric antrum had areas of erosive gastritis with some edema and erosions, but without ulceration or mass. There was no bleeding. There was good peristalsis. Biopsies were obtained. The scope was retroflexed visualizing the proximal stomach carefully. There was some proximal gastritis but no evidence of any mass. However, in the forward viewing position, I was able to visualize a clean based approximately 15 mm ulcer along the lesser curvature, just beneath the hiatal hernia. It appeared to be grossly benign, but biopsies were obtained from the margins of this ulcer. The scope was withdrawn back to the esophagus. Biopsies were obtained at the EG junction at 35 cm. Proximal to this, the esophageal mucosa appeared normal. The scope was withdrawn from the patient. He was turned around for the colonoscopy. The digital rectal exam revealed no abnormalities. The Vivorte video pediatric colonoscope was entered into the rectum advanced easily to the cecum. Once in the cecum, I did identify a normal-appearing cecal pouch with appendiceal orifice and a normal-appearing ileocecal valve. Of note, time was spent irrigating and suctioning the cecum to clean it out adequately for good visualization. Again, the cecum appeared normal. The ileocecal valve appeared normal. The terminal ileum was cannulated and appeared normal. The scope was then slowly withdrawn assessing all mucosal surfaces carefully. Preparation from different parts of the colon was notable for a lot of liquid stool, but a lot of this was irrigated and then suctioned away. Ultimately, the preparation throughout the colon became quite good, allowing for fairly good inspection, although again there was some residual liquid and solid stool. I did not visualize any sign of polyps, colitis, nor angiodysplasia. There was a moderate amount of sigmoid diverticulosis. In the rectum, the scope was retroflexed visualizing internal hemorrhoids, but no other pathology. The rectal mucosa appeared normal. The scope was straightened and withdrawn from the patient. He tolerated both procedures well and was returned to the recovery area in stable condition. IMPRESSION: 1. Proximal gastric ulcer. 2. Erosive gastritis. 3. Reflux esophagitis. 4. Hiatal hernia. 5. Rule out celiac disease. 6. Diverticulosis. 7. Internal hemorrhoids. PLAN: The results of the biopsies will be checked. If Helicobacter pylori is present in the gastric biopsies, I would recommend treating that. He will start omeprazole 40 mg daily and should stay on that long-term. He should avoid all aspirin and NSAIDs. His diet will be advanced and he will have followup laboratories in the morning. His SQ heparin was stopped, and he should avoid all aspirin and NSAIDs long-term as well. He will also start iron. This has been discussed with his daughter, Emilie. MD SAMUEL Murillo/OLIVIA / [id number] EDILBERTO
[2021-09-04] MEDS: Piperacillin Sodium/Tazobactam 4.5 GM in 0.9 % Sodium Chloride 100 ML IV (03:05)
[2021-09-04 04:00] VITALS: BP 180/79; PULSE 56; RESP 18; TEMP 36.8; O2SAT 98
[2021-09-04] MEDS: Omeprazole 40 MG CAPSULE.DR PO (05:32)
[2021-09-04 05:36] LABS: MANUAL DIFF FLAG NO
[2021-09-04 05:39] LABS: Basophils Absolute Auto 0.1 X10*3/uL (0.0-0.2); Basophils Percent Auto 1.2 % (0-2); Eosinophils Percent Auto 16.7 % (0-4); Hematocrit 29.9 % (42.0-52.0); Hemoglobin 8.4 g/dl (14.0-18.0); Imm Gran Abs Auto 0.01 X10*3/uL (0.00-0.03); Imm Gran Pct Auto 0.2 % (0.0-0.4); Lymphocytes Absolute Auto 0.7 X10*3/uL (1.2-4.9); Lymphocytes Percent Auto 11.5 % (20-40); Mean Corpuscular HGB Conc 28.1 g/dl (31.0-36.0); Mean Corpuscular Hemoglobin 21.5 pg (27.0-33.0); Mean Corpuscular Volume 76.7 fL (80.0-98.0); Mean Platelet Volume 9.4 fL (9.4-12.4); Monocytes Absolute Auto 0.7 X10*3/uL (0.1-1.2); Monocytes Percent Auto 11.8 % (2-11); Neutrophils Absolute Auto 3.4 x10*3/uL (2.0-8.3); Neutrophils Percent Auto 58.6 % (45-73); Platelet Count 348 X10*3/uL (160-400); White Blood Count 5.7 X10*3/uL (4.8-10.8)
[2021-09-04 06:00] LABS: Anion Gap 16 (12-20); Blood Urea Nitrogen 9 mg/dL (9-16); Calcium 8.3 mg/dL (8.4-10.2); Carbon Dioxide 28 mmol/L (22-29); Chloride 101 mmol/L (96-108); Creatinine Clr Calc Pharmacy 83.2; Estimated Glomerular Filt Rate > 60; Glucose Random 66 mg/dL (60-115); Potassium 4.1 mmol/L (3.3-5.1); Sodium 141 mmol/L (135-145)
[2021-09-04] MEDS: Albuterol/Iprat 2.5/0.5MG 3 ML AMPUL.NEB INHALE (07:33)
[2021-09-04 07:34] VITALS: PULSE 96; RESP 20; O2SAT 91
[2021-09-04 07:36] VITALS: BP 158/86; PULSE 55; RESP 19; TEMP 36.5; O2SAT 91
--- NOTE | 2021-09-04 08:06 | HO.PM.IMPN ---
Subjective Subjective Date of Service: 09/04/21 Interval History: cc: f/u on synocpe, anemia and aspiration PNA and scott pastrana interv history: He is more alert this morning, nor resp difficutly, no gib, EGD done yesterday Review of Systems no fever, no gi bleedin seems confused Physical Exam Vital Signs: Vital Signs: Last Vital Signs Temp 97.7 F 09/04/21 07:36 Pulse 55 09/04/21 07:36 Resp 19 09/04/21 07:36 BP 158/86 H 09/04/21 07:36 Pulse Ox 91 L 09/04/21 07:36 Oxygen Flow Rate 2 08/29/21 16:30 BMI result Body Mass Index 28.4 Const: Other: General: Oriented to self and place Resp: fidencio rhonchi CVS: S1,S2,RRR GI: +BS, NT, no distention Skin: No rash Neuro: motor grossly intact Psych: falt, less confused Objective Data Active Medications Acetaminophen (Acetaminophen 325 Mg Tablet) 650 mg PO Q6H PRN PRN Reason: pain/fever Last Admin: 09/04/21 00:01 Dose: 650 mg Documented by: TAMIE Albuterol/Ipratropium (Albuterol/Iprat 2.5/0.5mg 3 Ml Ampul.Neb) 3 ml INHALE RQ6H WHILE AWAKE [facility] Last Admin: 09/04/21 07:33 Dose: 3 ml Documented by: TEVIN Albuterol/Ipratropium (Albuterol/Iprat 2.5/0.5mg 3 Ml Ampul.Neb) 3 ml INHALE RQ4H PRN PRN Reason: Shortness of Breath/Wheezing Amoxicillin/Clavulanate Potassium (Amoxicillin/Potassium Clav 875 Mg Tablet) 875 mg PO BID [facility] Ferrous Sulfate (Ferrous Sulfate 324 Mg Tablet.) 324 mg PO DAILY [facility] Last Admin: 09/03/21 20:42 Dose: Not Given Documented by: TAMIE Non-Admin Reason: Patient Refused Lactated Ringer's (Lr) 1,000 mls @ 50 mls/hr IVCONT .Q20H [facility] Last Infusion: 09/04/21 03:39 Dose: 50 mls/hr Documented by: TAMIE Melatonin (Melatonin 3 Mg Tablet) 6 mg PO BEDTIME PRN PRN Reason: Insomnia Last Admin: 09/04/21 00:01 Dose: 6 mg Documented by: TAMIE Metoprolol Succinate (Metoprolol Succinate Er 50 Mg Tab.Er.24h) 50 mg PO DAILY [facility]; Protocol Last Admin: 09/03/21 08:23 Dose: 50 mg Documented by: SHAWANDA Omeprazole (Omeprazole 40 Mg Capsule.Dr) 40 mg PO DAILY@0630 [facility] Last Admin: 09/04/21 05:32 Dose: 40 mg Documented by: TAMIE Pharmacy Consult (Consult Rx Perform Med Rec) 1 each MISCELLANE ONCE PRN PRN Reason: Consult order Senna (Sennosides 8.6 Mg Tablet) 17.2 mg PO BEDTIME PRN PRN Reason: Constipation Labs CBC & Chem 7: 09/04/21 05:16 09/04/21 05:16 Labs: Laboratory Results - last 24 hr 09/04/21 09/04/21 05:16 05:16 MCV 76.7 L MCH 21.5 L MCHC 28.1 L RDW TNP Plt Count 348 MPV 9.4 Immature Gran % (Auto) 0.2 Neut % (Auto) 58.6 Lymph % (Auto) 11.5 L [place] % (Auto) 11.8 H Eos % (Auto) 16.7 H Baso % (Auto) 1.2 Lymph # (Auto) 0.7 L [place] # (Auto) 0.7 Eos # (Auto) 1.0 H Baso # (Auto) 0.1 Abs Immat Gran (auto) 0.01 Absolute Neuts (auto) 3.4 Absolute Nucleated RBC 0.000 Nucleated RBC % (auto) 0.0 Anion Gap 16 Estim Creat Clear Calc 83.2 Estimated GFR > 60 Random Glucose 66 Calcium 8.3 L Assessment and Plan (1) Severe anemia: Status: Acute (2) Syncope: Status: Acute Plan 70-year-old male with a past medical history of hypertension, AFib, CHF, asthma presented to the hospital today with chief complaint of brief unresponsive episode.? Brief unresponsive episode:Circumstances unclear and work up is negative including head CT, ECG.. Cardiac telemetry has been negative thus far for arrythmia, probably all related to anemia Anemia acute blood loss s/p transfusion. EGD/Colonoscopy on 09/03 was noted for gastric ulcer.. It is recommends that he stops aspirin indifinately and should be on PPI, will check with GI when to restart eliauis Asthma/Mild hypoxia: Annyb Aspriation: PNA, Zosyn change to Augmentin l History of AFib:? Rate controlled.? Eliquis on hold? Continue home metoprolol. HANK vs CKD--serum creatine within normal History of CHF:systolic vs diastolic, not enough info at this time to determine the nature of heart failure. ? ?diet:? cardiac diet once passes nursing swallow screen.? Confusuion and hypoxic encephalopathy: Overall better today Need for inaptient stay: Syncope work up, acute GI bleed and now need placement DVT prophylaxis; compression device Quality Stroke Does the patient have a stroke diagnosis?: No VTE Prior VTE?: No VTE Risk Level:: Medical - moderate - high VTE Device Contraindication: Treatment Not Indicated VTE Drug Contraindication: N/A - Med Ordered
[2021-09-04] MEDS: Ferrous Sulfate 324 MG TABLET.DR PO (08:23)
[2021-09-04] MEDS: Amoxicillin/Potassium Clav 875 MG TABLET PO (08:23)
[2021-09-04] MEDS: Metoprolol Succinate ER 50 MG TAB.ER.24H PO (08:23)
[2021-09-04 12:00] VITALS: BP 165/74; PULSE 64; RESP 20; TEMP 36.4; O2SAT 97
--- NOTE | 2021-09-04 12:02 | P.DS_ITS ---
DS: Providers Provider Date of Service: 09/04/21 Date of admission: 08/29/21 21:48 Primary care physician: Favio Dowd MD Consults: 08/29/21 21:48 Consult to Nephrology Routine Consulting Provider: Jose Morataya Reason for consultation: HANK 08/30/21 09:46 Consult to Gastroenterology Routine Consulting Provider: Darin Marc Reason for consultation: gib anemia DS: Diagnosis Discharge Diagnosis (1) Severe anemia: Status: Resolved (2) Syncope: Status: Resolved DS: Summary Hospital Course Hospital Course: Chief Complaint:? unresponsive episode 70-year-old male with a past medical history of hypertension, AFib, CHF, anemia, asthma presented to the hospital today with chief complaint of brief unresponsive episode.? Patient is a poor historian.? Tried to call the patient's family- not reachable on the phone; Most of the history obtained from the records in the ER staff Reportedly patient was lying in his couch, not responding to the family members; subsequently EMS was called in when the EMS arrived patient was responding to the verbal stimuli; Patient denies any chest pain or palpitations.? Patient denies any lightheadedness or dizziness.? Patient denies using any home oxygen. Mentions he has been keeping up with diet; denies any difficulty swallowing.? Denies any GI symptoms.? Review of all other systems is negative except mentioned above ER course: Per ER team? patient? on presentations out and awake; EKG was nonischemic; troponin 10.9 CT head showed no acute findings?home on labs noted to have elevated creatinine to? 2.39; baseline creatinine of 0.8.? Patient was given IV fluids with no significant improvement on follow-up labs; decided to admit to the hospital for further management. Hospital course: Brief unresponsive episode:Circumstances unclear and work up is negative including head CT, ECG.. Cardiac telemetry? has been negative thus far for arrythmia, probably all related to anemia Anemia acute blood type, transfused 2 units. EGD/Colonoscopy on 09/03 was noted for gastric ulcer.. It is recommends that he stops aspirin indifinately and should be on PPI, will check with GI when to restart Asthma/Mild hypoxia: Duoneb QID and PRN Aspriation PNA.. Treated with Zosyn and now being transitioned to Augmentin for total of 7 days Chronic AFib:?Rate controlled.? Eliquis on hold? Continue home metoprolol. HANK vs CKD-resolved,-serum creatine within normal History of CHF:systolic vs diastolic, not enough info at this time to determine the nature of heart failure. ?continue Lasix ?diet:? cardiac diet once passes nursing swallow screen.? Dispo: To short term rehab for less than 30 days Time Spent with Patient Time attestation: Total time spent providing and/or coordinating discharge services: Discharge coordination time: Greater than 30 minutes Quality: Stroke Does the patient have a stroke diagnosis?: No Physical Exam Vital Signs: Vital Signs: Last Vital Signs Temp 97.7 F 09/04/21 07:36 Pulse 55 09/04/21 07:36 Resp 19 09/04/21 07:36 BP 158/86 H 09/04/21 07:36 Pulse Ox 91 L 09/04/21 07:36 Oxygen Flow Rate 2 08/29/21 16:30 BMI result Body Mass Index 28.4 DS: Data Data Completed and Pending Completed studies during hospitalization [Text1]: Procedures Transfusion of Nonautologous Red Blood Cells into Peripheral Vein, Percutaneous Approach (08/21/21) Pending studies at discharge: Pending at discharge 09/03/21 16:49 Surgical [PTH] Routine Labs on day of discharge: Laboratory Results - last 24 hr 09/04/21 09/04/21 05:16 05:16 WBC 5.7 RBC 3.90 L Hgb 8.4 L Hct 29.9 L MCV 76.7 L MCH 21.5 L MCHC 28.1 L RDW TNP Plt Count 348 MPV 9.4 Immature Gran % (Auto) 0.2 Neut % (Auto) 58.6 Lymph % (Auto) 11.5 L [place] % (Auto) 11.8 H Eos % (Auto) 16.7 H Baso % (Auto) 1.2 Lymph # (Auto) 0.7 L [place] # (Auto) 0.7 Eos # (Auto) 1.0 H Baso # (Auto) 0.1 Abs Immat Gran (auto) 0.01 Absolute Neuts (auto) 3.4 Absolute Nucleated RBC 0.000 Nucleated RBC % (auto) 0.0 Sodium 141 Potassium 4.1 Chloride 101 Carbon Dioxide 28 Anion Gap 16 BUN 9 Creatinine 0.82 Estim Creat Clear Calc 83.2 Estimated GFR > 60 Random Glucose 66 Calcium 8.3 L Discharge Plan Discharge Anticipated Discharge Date/Time: 09/04/21 13:13 Patient Disposition: Xfer SNF Discharge Diagnosis: Acute blood loss anemia, syncope, aspiration pneumonia, HANK Referrals: [facility] [Outside] - 1 Day (SHORT TERM REHAB) Favio Dowd MD [Primary Care Provider] - 1 Week Discharge Medications: New amoxicillin-pot clavulanate 875-125 mg Tablet 875 mg PO BID Qty: 8 0RF omeprazole 40 mg capsule,delayed release(DR/EC) 40 mg PO BID Qty: 180 0RF Continued furosemide 40 mg tablet 1 tab PO DAILY 0RF metoprolol succinate 50 mg tablet extended release 24 hr 50 mg PO DAILY 0RF Label Comments: MAY TAKE 75MG; WILL FOLLOW UP WITH MD IN THE AM lisinopril 5 mg tablet 1 tab PO DAILY 0RF Flovent HFA 110 mcg/actuation HFA aerosol inhaler 1 puff PO BID 0RF oxycodone 5 mg tablet 1 tab PO Q6-8H 0RF Discharge Orders: Discharge Order (Routine); Ordered 09/04/21 Ordered By: Noah Quinonez Diet: advance to usual diet Activity on Discharge: As tolerated Stand Alone Forms: Patient Portal Discharge page Care Plan Goals: Full recovery from anemia, pneumonia and syncope Health Concerns: Chronic anemia, renal failure, pneumonia, atrial fibrilation Plan of Treatment: To acute rehab for less than 30 days, avoid aspirin and NSAID, no eliquis, take Prilosec as directed, Take Augmentin for pneumona Assessment: as above Discharge Date/Time: 09/04/21 15:04
[2021-09-04 12:23] LABS: COVID-19 Test Negative (Negative); IDNOW Serial# 16C4AD1C
--- NOTE | 2021-09-04 12:28 | HO.POSTANES ---
Post Anesthesia Evaluation Post Anesthesia Evaluation Vital Signs: Vital Signs Temp Pulse Resp BP Pulse Ox 09/04/21 12:00 97.6 F 64 20 165/74 H 97 09/04/21 07:36 97.7 F 55 19 158/86 H 91 L 09/04/21 07:34 96 20 09/04/21 04:00 98.3 F 56 18 180/79 H 98 Anesthesia: Monitored Mental Status: Awake Pain Control: Satisfactory Nausea/Vomiting: None Hydration: Adequate Anesthesia-Related Issues: No Anes. Related Issues
--- NOTE | 2021-09-04 13:05 | MHC.CM.PN ---
IMM 09/04/21, CM MET W/PT WHO IS AGREEABLE TO PLAN FOR STR AT [facility], PT AWARE TRANSPORT IS SET UP FOR 3PM, IMM REVIEWED AND MEDNEC SIGNED BY THIS CM PT HAS FX OF R WRIST AND UNABLE TO SIGN, PT'S DTR/HCP MARIAH UPDATED AND ALSO AGREEABLE TO PLAN.
--- NOTE | 2021-09-04 14:33 | MHC.SL.SWA ---
Speech Pathologist Impression: Risk of Aspiration Due to: Weak Voice Dysphasia Diet Status: Liquid Consistency and Strategies for Safe Swallow: Liquid Intake Recommendation: Thin Liquid Intake Strategies: Small Sips Solid Food Consistency: Dietary Recommendations: Chopped/Advanced (NDD3) Additional Modifications to Solid Foods: Avoid tough to chew solids Oral Medication Intake: Whole with Liquid Please contact the pharmacy regarding appropriate crushable or liquid drug formulations that are available whenever modified delivery is recommended. Compensatory Strategies and Precautions to be Taken for Safe Swallow: Sitting Upright (90 deg) Liquids from Cup Alternate Liquids/Solids Rate of Ingestion Change Supervision While Eating and Drinking for Safe Swallow: None Needed Foods to Avoid: Tough to chew solids Swallowing Recommended Treatments: Compens. Strategy Educat. Recommendation for Speech: Inpatient Speech Therapy Comment: Pt seen for follow up re: toleration of diet, reassess swallow. Pt seen during lunch, taking thin liquids w/ no clinical signs of aspiration. Pt is on Chopped/Advanced (NDD3) due to lack of dentition. On bits of softened chicken in gravy, Pt again noted to masticate for prolonged period, but control bolus well orally, w/swallow trigger and good laryngeal elevation on swallow, no clinical signs of aspiration. Pt. tolerating recommended diet well, DC from Speech at this time. Frequency/Duration: Date Range for Service Req: Timeline to reassess: Valve Repairer Reclamation Clinican/Clinical Fellow: No Supervisory Statement: I have reviewed and agree with the student/clinical fellow's documentation: N/A Speech Language Pathologist: Marina Díaz M.A., CCC-RESTAURANT MAINTENANCE TECHNICIAN
== END 2021-09-04 15:04 | disposition skilled nursing facility (03) | DRG 377 ==
LOC: HO.ED 21:49 → HO.EDOVER 21:58 → HO.IMC 08-31 07:30 → HO.S3 08-31 08:13
PROVIDERS: Internal Medicine; Internal Medicine Gastroenterology; Admitting Provider Hospitalist; Emergency Provider Emergency Medicine; PCP Family Medicine; Visit Provider Internal Medicine
PROC: 0DB98ZX Excision of Duodenum, Via Natural or Artificial Opening Endoscopic, Diagnostic (ICD-10-PCS; principal; 2021-09-03 15:00)
DX: K57.31 Diverticulosis of large intestine without perforation or abscess with bleeding (principal); N17.0 Acute kidney failure with tubular necrosis; J69.0 Pneumonitis due to inhalation of food and vomit; K21.01 Gastro-esophageal reflux disease with esophagitis, with bleeding; D62 Acute posthemorrhagic anemia; I48.20 Chronic atrial fibrillation, unspecified; I50.32 Chronic diastolic (congestive) heart failure; I50.22 Chronic systolic (congestive) heart failure; I12.9 Hypertensive chronic kidney disease with stage 1 through stage 4 chronic kidney disease, or unspecified chronic kidney disease; K29.71 Gastritis, unspecified, with bleeding; N18.9 Chronic kidney disease, unspecified; K64.8 Other hemorrhoids; J45.909 Unspecified asthma, uncomplicated; Z20.822 Contact with and (suspected) exposure to COVID-19; Z79.51 Long term (current) use of inhaled steroids; Z79.891 Long term (current) use of opiate analgesic; Z79.899 Other long term (current) drug therapy
CPT/HCPCS: 36415; 36600; 70450; 71045; 78580; 80048; 80076; 80307; 81001; 81003; 82077; 82140; 82803; 83605; 83735; 83880; 84484; 85025; 85027; 85379; 85610; 86850; 86900; 86901; 86923; 87635; 88305; 88342; 92610; 93005; 94640; 96360; 96361; 97162; 99285; A9540; C1758; J2250; J2405; J2543; J3430; P9016

== ENCOUNTER 2021-09-18 07:20 | Outpatient (REF) | payer MEDICARE, MEDICAID, SELFPAY ==
--- NOTE | ~2021-09-18 | XR_ITS ---
EXAMINATION: XR FOREARM, RIGHT CLINICAL INFORMATION: Fracture COMPARISON: Previous x-ray August 2021 TECHNIQUE: AP and lateral views of the right forearm were obtained. FINDINGS: There is a comminuted minimally displaced fracture of the distal shaft of the ulna. Alignment is unchanged from previous exam. Fracture line is still seen. No bony callus formation is seen. No other fracture is seen. There is soft tissue arterial calcification. XR/XR forearm RT 2V IMPRESSION: No change in the comminuted displaced fracture of the distal shaft of the ulna from August 2021 exam.
== END 2021-09-18 07:21 | disposition home or self-care (01) ==
LOC: HO.HOSX 07:20
PROVIDERS: Visit Provider Physician Assistant
DX: S52.201D Unspecified fracture of shaft of right ulna, subsequent encounter for closed fracture with routine healing (principal)
CPT/HCPCS: 73090; 99212

== ENCOUNTER 2021-10-16 07:14 | Outpatient (REF) | payer MEDICARE, MEDICAID, SELFPAY ==
--- NOTE | ~2021-10-16 | XR_ITS ---
EXAMINATION: XR FOREARM, RIGHT CLINICAL INFORMATION: Follow-up fracture COMPARISON: Previous x-ray 09/18/2021 TECHNIQUE: AP and lateral views of the right forearm were obtained. FINDINGS: There is a comminuted minimally displaced fracture of the distal shaft of the ulna. There is interval increase in bony callus formation suggestive of evidence of some healing. Fracture line is still seen. Alignment is unchanged. No other fracture is seen. There is a soft tissue arterial calcification. XR/XR forearm RT 2V IMPRESSION: Healing distal ulnar shaft fracture.
== END 2021-10-16 07:15 | disposition home or self-care (01) ==
LOC: HO.HOSX 07:14
PROVIDERS: Visit Provider Physician Assistant
DX: S52.201D Unspecified fracture of shaft of right ulna, subsequent encounter for closed fracture with routine healing (principal)
CPT/HCPCS: 73090; 99212

== ENCOUNTER 2021-11-26 07:23 | Outpatient (REF) | payer MEDICARE, MEDICAID, SELFPAY ==
--- NOTE | ~2021-11-26 | XR_ITS ---
EXAMINATION: XR WRIST, RIGHT CLINICAL INFORMATION: Right wrist pain. COMPARISON: Right forearm 10/16/2021 TECHNIQUE: PA, lateral, and oblique views of the right wrist. FINDINGS: There is a comminuted healing fracture right distal ulna with moderate callus formation. No additional acute fractures seen. There is loss of 1st carpometacarpal joint space with periarticular spurring. The rest of the wrist joints are unremarkable. There is minimal focal soft tissue swelling distal ulnar forearm. XR/XR wrist RT min 3V IMPRESSION: 1. Healing fracture distal ulna with moderate callus formation and minimal focal soft tissue swelling. 2. No acute fracture or dislocation seen.
== END 2021-11-26 07:24 | disposition home or self-care (01) ==
LOC: HO.HOSX 07:23
PROVIDERS: Visit Provider Physician Assistant
DX: S52.201D Unspecified fracture of shaft of right ulna, subsequent encounter for closed fracture with routine healing (principal)
CPT/HCPCS: 73110; 99212

== ENCOUNTER 2022-12-22 07:13 | Inpatient (IN) | payer MEDICARE, MEDICAID, SELFPAY ==
[2022-12-22] VITALS (10 sets, daily range): BP systolic 121–146; BP diastolic 46–95; PULSE 82–100; RESP 20–32; TEMP 36.6–38.7; O2SAT 92–96; BMI 29.5
--- NOTE | 2022-12-22 07:32 | ED.GENADULT ---
HPI - General Adult General Chief complaint: Fall Stated complaint: Gen weakness, L knee pain per EMS Time Seen by Provider: 12/22/22 07:23 Source: patient and EMS Mode of arrival: EMS Limitations: no limitations History of Present Illness HPI narrative: 72-year-old male came in by ambulance for evaluation of generalized weakness. Patient lives home alone was coughing and passed out caused him to fall on the ground and patient remained on the floor for about a day and have could not get up finally the patient was able to call 911 this morning who came and picked him up, patient was soaked and soiled with urine and fecal material, complaining of left knee pain, patient is somewhat limited historian about his health history, no known history of COPD patient was found hypoxic at home 88% on room air which was improved with 1 L of [place] oxygen in the ED. patient has no family or friend around, patient asking for snf placement. Related Data Home Medications Medication Instructions Recorded Confirmed fluticasone propionate 110 1 puff PO BID 08/21/21 12/22/22 mcg/actuation HFA aerosol inhaler (Flovent HFA) furosemide 40 mg tablet 1 tab PO DAILY 08/21/21 12/22/22 lisinopril 5 mg tablet 1 tab PO DAILY 08/21/21 12/22/22 metoprolol succinate 50 mg 75 mg PO DAILY 08/21/21 12/22/22 tablet,extended release 24 hr albuterol sulfate 90 mcg/actuation 2 puff inhalation Q4H 11/26/21 12/22/22 aerosol inhaler (Ventolin HFA) omeprazole 40 mg capsule,delayed 40 mg PO DAILY@0630 12/22/22 12/22/22 release Allergies Allergy/AdvReac Type Severity Reaction Status Date / Time No Known Allergies Allergy Verified 11/26/21 10:13 Review of Systems Review of Systems: All other systems are reviewed and are negative Constitutional: Reports as per HPI and Reports no additional constitutional complaints Eyes: Reports as per HPI and Reports no additional eye complaints Reports system reviewed and no additional complaints, except as documented Cardiovascular: Reports as per HPI and Reports no additional cardiovascular complaints Respiratory: Reports as per HPI and Reports no additional respiratory complaints Gastrointestinal: Reports as per HPI and Reports no additional gastrointestinal complaints Genitourinary: Reports no additional female genitourinary complaints Musculoskeletal: Reports no additional musculoskeletal complaints Skin/Breast: Reports system reviewed and no additional complaints, except as docu Psychiatric: Reports no additional psychiatric complaints Endocrine: Reports no additional endocrine complaints Hematologic/Lymphatic: Reports no additional hematologic/lymphatic complaints Allergic/Immunologic: Reports no additional allergic/immunologic complaints Reports system reviewed and no additional complaints, except as documented and Reports Abnormal speech present [facility] Past Medical History Medical History Afib CHF (congestive heart failure) Surgical History No pertinent past surgical history Family History Family History Brother Pancreatic cancer Other No family history of coronary artery disease Social History Social History Household Members: None Housing: House Do you presently have visiting nurse or other home services: No Alcohol intake: never Patient Tobacco Use Status: Never used Tobacco Smoked in Last 30 Days: No Substance Use Type: Former Substance User Advance Directives: Yes Advance Directives on File: Yes Advance Directives Date on File: 08/21/21 service: Yes Current occupational status: retired Physical Exam ED Vital Signs: Vital Signs - 24 hr 12/22/22 07:23 12/22/22 08:00 12/22/22 08:11 Temperature 99.8 F 101.7 F H Pulse Rate 92 93 87 Respiratory Rate 20 28 H 32 H Blood Pressure 146/58 H 138/55 L Pulse Oximetry 92 93 Oxygen Delivery Method Nasal Cannula Nasal Cannula Oxygen Flow Rate 2 12/22/22 11:05 12/22/22 11:24 12/22/22 12:36 Temperature 98.3 F 98.3 F 98 F Pulse Rate 88 88 86 Respiratory Rate 28 H 30 H 25 H Blood Pressure 136/56 L 129/49 L 121/46 L Pulse Oximetry 95 Oxygen Delivery Method Room Air Oxygen Flow Rate 12/22/22 14:17 Temperature 98.1 F Pulse Rate 82 Respiratory Rate 23 H Blood Pressure 140/55 H Pulse Oximetry Oxygen Delivery Method Oxygen Flow Rate BMI result Body Mass Index 29.5 Vital signs have been reviewed as appeared to be correct. Blood pressure normal. Heart rate normal. Respiration rate normal. Temperature normal. Oxygen saturation normal. Appearance: Alert. Oriented, disheveled. No acute distress. Head: Normal external exam. Normocephalic. Atraumatic. No Yin signs noted. No raccoon eyes noted Eyes: PERRLA. EOMI. Conjunctiva and sclera normal. Eyelids normal. ENT: TM's Normal. Pharynx normal. Uvula midline. Moist mucous membranes. No trismus noted. No drooling noted. No muffled voice noted. Neck: Normal inspection. Neck supple. FROM. No adenopathy. Thyroid Normal. No meningeal signs. No neck mass noted. CVS: Normal heart rate and rhythm. Heart sound normal. No murmurs noted. Pulses normal throughout. Respiratory: No respiratory distress. Painless inspiration. Breath sounds normal. Diffuse prolonged expiratory wheezing with prolonged expiration, bilateral basal rales.. Chest nontender. No accessory muscle usage noted or decreased air movement noted. Abdomen: Soft and nontender. Bowel sounds normal in all 4 quadrants. No distention noted. No organomegaly noted. No visible injury noted. Rectal exam: Brown stool with trace of guaiac-positive. Back: No CVA tenderness. Full range of motion noted. Skin: Skin warm and dry. Normal skin color. Normal skin turgor. No rashes/lesions/lacerations noted. Extremities: Left knee: Mild tenderness with no deformity or step-off. Neuro: Oriented X 3. Cranial nerve exam: II-XII are grossly intact No motor deficit. No sensory deficit. Reflexes normal. Course Course Course Narrative: A 72-year-old male found on the ground for day and a half complaining of generalized weakness and respiratory symptoms, area of long consultation on CT of the chest, patient meet criteria for SIRS, patient received 1 dose ceftriaxone covering for respiratory symptoms. Patient also found to be anemic patient was transfused 1 unit of RBC. Trace of guaiac positive on the stool. Hyponatremia appears to be hypovolemic with normal renal function patient receiving 1 L of normal saline. Medications Administered Discontinued Medications Generic Name Dose Route Start Last Admin Trade Name Freq PRN Reason Stop Dose Admin Albuterol Sulfate 5 mg 12/22/22 07:29 12/22/22 08:06 Albuterol Sulfate (0.083%) 2.5 Mg/3 Ml Vial.Neb INHALE 12/22/22 07:30 5 mg ONCE ONE Administration Albuterol/Ipratropium 3 ml 12/22/22 07:29 12/22/22 08:06 Albuterol/Iprat 2.5/0.5mg 3 Ml Ampul.Neb INHALE 12/22/22 07:30 3 ml ONCE ONE Administration Sodium Chloride 1,000 mls @ 999 mls/hr 12/22/22 07:27 12/22/22 08:13 Ns IV 12/22/22 08:27 999 mls/hr .Q1H1M ONE Administration Magnesium Sulfate 2 gm in 50 mls @ 25 mls/hr 12/22/22 07:29 12/22/22 08:13 Magnesium Sulfate/H2o IV 12/22/22 09:28 25 mls/hr ONCE ONE Administration Ceftriaxone Sodium 1 gm/ 50 mls @ 100 mls/hr 12/22/22 07:29 12/22/22 08:49 Sodium Chloride IV 12/22/22 07:58 100 mls/hr ONCE ONE Administration Methylprednisolone Sodium Succinate 125 mg 12/22/22 07:29 12/22/22 08:13 Methylprednisolone Sod Succ 125 Mg/2 Ml Vial IVPUSH 12/22/22 07:30 125 mg ONCE ONE Administration Medical Decision Making Differential Diagnosis Differential Diagnoses: The differential diagnosis associated with the presentation includes (Pneumonia, rhabdomyolysis, pleural effusion, colitis, diverticulitis, bowel obstruction, electrolyte abnormalities, kidney insufficiency, severe anemia, UTI, septic shock) Admission/Observation Consideration of admission/observation: Escalation of care including admission/observation considered Consult Healthcare Provider Management of the patient was discussed with: Hospitalist (Camila Vila) Lab Data MDM Lab Attestation statement: I reviewed the patient's lab results. 12/22/22 08:04 12/22/22 08:05 Labs: Lab Results 12/22/22 12/22/22 12/22/22 Range/Units 08:04 08:05 08:05 WBC 20.0 H (4.8-10.8) X10*3/uL RBC 4.29 L (4.60-5.80) X10*6/uL Hgb 7.1 L (14.0-18.0) g/dl Hct 25.7 L (42.0-52.0) % MCV 59.9 L (80.0-98.0) fL MCH 16.6 L (27.0-33.0) pg MCHC 27.6 L (31.0-36.0) g/dl RDW 20.8 H (11.0-16.0) % Plt Count 485 H D (160-400) X10*3/uL MPV 8.3 L (9.4-12.4) fL Immature Gran % (Auto) 0.7 H (0.0-0.4) % Neut % (Auto) 80.1 H (45-73) % Lymph % (Auto) 3.9 L (20-40) % [place] % (Auto) 5.5 (2-11) % Eos % (Auto) 9.6 H (0-4) % Baso % (Auto) 0.2 (0-2) % Lymph # (Auto) 0.8 L (1.2-4.9) X10*3/uL [place] # (Auto) 1.1 (0.1-1.2) X10*3/uL Eos # (Auto) 1.9 H (0.0-0.4) X10*3/uL Baso # (Auto) 0.0 (0.0-0.2) X10*3/uL Abs Immat Gran (auto) 0.15 H (0.00-0.03) X10*3/uL Absolute Neuts (auto) 16.0 H (2.0-8.3) x10*3/uL Absolute Nucleated RBC 0.020 H (0.0-0.012) X10*3/uL Nucleated RBC % (auto) 0.1 (0.0-0.2) /100WBC Sodium 128 L (135-145) mmol/L Potassium 4.8 (3.3-5.1) mmol/L Chloride 93 L (96-108) mmol/L Carbon Dioxide 25 (22-29) mmol/L Anion Gap 15 (12-20) BUN 17 H (9-16) mg/dL Creatinine 1.04 (0.5-1.4) mg/dL Estim Creat Clear Calc 71.4 Estimated GFR > 60 Random Glucose 94 (60-115) mg/dL Lactic Acid (0.5-2.0) mmol/L Calcium 8.7 (8.4-10.2) mg/dL Total Bilirubin 0.8 (0.0-1.0) mg/dL Direct Bilirubin 0.4 (0.0-0.5) mg/dL AST 111 H (5-37) U/L ALT 111 H (0-40) U/L Alkaline Phosphatase 229 H (39-117) U/L Total Creatine Kinase 46 (38-174) U/L Troponin I High Sens 11.4 (<3.5-35.0) ng/L B-Natriuretic Peptide (<100) pg/mL Total Protein 6.5 (6.5-8.0) g/dL Albumin 2.9 L (3.5-5.0) g/dL Lipase 46 (8-78) U/L Urine Color Urine Appearance Urine pH (5.0-9.0) Ur Specific [place] (1.005-1.025) Urine Protein (Neg-Trace) mg/dL Urine Glucose (UA) (Negative) mg/dL Urine Ketones (Negative) mg/dL Urine Blood (Negative) Urine Nitrite (Negative) Ur Leukocyte Esterase (Negative) Urine RBC (0-2) /HPF Urine WBC (0-5) /HPF Ur Squamous Epith Cells (0-2) /HPF Urine Bacteria (None Seen) Hyaline Casts (0-2) /LPF Stool Occult Blood (NEGATIVE) Influenza Type A (PCR) (Negative) Influenza Type B (PCR) (Negative) RSV RNA Qual (PCR) (Negative) SARS-CoV-2 RNA (RT-PCR) (Negative) Blood Type Antibody Screen Crossmatch 12/22/22 12/22/22 12/22/22 Range/Units 08:05 08:05 08:46 WBC (4.8-10.8) X10*3/uL RBC (4.60-5.80) X10*6/uL Hgb (14.0-18.0) g/dl Hct (42.0-52.0) % MCV (80.0-98.0) fL MCH (27.0-33.0) pg MCHC (31.0-36.0) g/dl RDW (11.0-16.0) % Plt Count (160-400) X10*3/uL MPV (9.4-12.4) fL Immature Gran % (Auto) (0.0-0.4) % Neut % (Auto) (45-73) % Lymph % (Auto) (20-40) % [place] % (Auto) (2-11) % Eos % (Auto) (0-4) % Baso % (Auto) (0-2) % Lymph # (Auto) (1.2-4.9) X10*3/uL [place] # (Auto) (0.1-1.2) X10*3/uL Eos # (Auto) (0.0-0.4) X10*3/uL Baso # (Auto) (0.0-0.2) X10*3/uL Abs Immat Gran (auto) (0.00-0.03) X10*3/uL Absolute Neuts (auto) (2.0-8.3) x10*3/uL Absolute Nucleated RBC (0.0-0.012) X10*3/uL Nucleated RBC % (auto) (0.0-0.2) /100WBC Sodium (135-145) mmol/L Potassium (3.3-5.1) mmol/L Chloride (96-108) mmol/L Carbon Dioxide (22-29) mmol/L Anion Gap (12-20) BUN (9-16) mg/dL Creatinine (0.5-1.4) mg/dL Estim Creat Clear Calc Estimated GFR Random Glucose (60-115) mg/dL Lactic Acid 1.1 (0.5-2.0) mmol/L Calcium (8.4-10.2) mg/dL Total Bilirubin (0.0-1.0) mg/dL Direct Bilirubin (0.0-0.5) mg/dL AST (5-37) U/L ALT (0-40) U/L Alkaline Phosphatase (39-117) U/L Total Creatine Kinase (38-174) U/L Troponin I High Sens (<3.5-35.0) ng/L B-Natriuretic Peptide 395 H (<100) pg/mL Total Protein (6.5-8.0) g/dL Albumin (3.5-5.0) g/dL Lipase (8-78) U/L Urine Color Yellow Urine Appearance Clear Urine pH 6.0 (5.0-9.0) Ur Specific [place] 1.015 (1.005-1.025) Urine Protein Negative (Neg-Trace) mg/dL Urine Glucose (UA) Negative (Negative) mg/dL Urine Ketones Negative (Negative) mg/dL Urine Blood Moderate (2+) H (Negative) Urine Nitrite Negative (Negative) Ur Leukocyte Esterase Negative (Negative) Urine RBC >20 H (0-2) /HPF Urine WBC 0-5 (0-5) /HPF Ur Squamous Epith Cells 0-2 (0-2) /HPF Urine Bacteria None Seen (None Seen) Hyaline Casts 0-2 (0-2) /LPF Stool Occult Blood (NEGATIVE) Influenza Type A (PCR) (Negative) Influenza Type B (PCR) (Negative) RSV RNA Qual (PCR) (Negative) SARS-CoV-2 RNA (RT-PCR) (Negative) Blood Type Antibody Screen Crossmatch 12/22/22 12/22/22 12/22/22 Range/Units 08:55 09:12 09:59 WBC (4.8-10.8) X10*3/uL RBC (4.60-5.80) X10*6/uL Hgb (14.0-18.0) g/dl Hct (42.0-52.0) % MCV (80.0-98.0) fL MCH (27.0-33.0) pg MCHC (31.0-36.0) g/dl RDW (11.0-16.0) % Plt Count (160-400) X10*3/uL MPV (9.4-12.4) fL Immature Gran % (Auto) (0.0-0.4) % Neut % (Auto) (45-73) % Lymph % (Auto) (20-40) % [place] % (Auto) (2-11) % Eos % (Auto) (0-4) % Baso % (Auto) (0-2) % Lymph # (Auto) (1.2-4.9) X10*3/uL [place] # (Auto) (0.1-1.2) X10*3/uL Eos # (Auto) (0.0-0.4) X10*3/uL Baso # (Auto) (0.0-0.2) X10*3/uL Abs Immat Gran (auto) (0.00-0.03) X10*3/uL Absolute Neuts (auto) (2.0-8.3) x10*3/uL Absolute Nucleated RBC (0.0-0.012) X10*3/uL Nucleated RBC % (auto) (0.0-0.2) /100WBC Sodium (135-145) mmol/L Potassium (3.3-5.1) mmol/L Chloride (96-108) mmol/L Carbon Dioxide (22-29) mmol/L Anion Gap (12-20) BUN (9-16) mg/dL Creatinine (0.5-1.4) mg/dL Estim Creat Clear Calc Estimated GFR Random Glucose (60-115) mg/dL Lactic Acid (0.5-2.0) mmol/L Calcium (8.4-10.2) mg/dL Total Bilirubin (0.0-1.0) mg/dL Direct Bilirubin (0.0-0.5) mg/dL AST (5-37) U/L ALT (0-40) U/L Alkaline Phosphatase (39-117) U/L Total Creatine Kinase (38-174) U/L Troponin I High Sens (<3.5-35.0) ng/L B-Natriuretic Peptide (<100) pg/mL Total Protein (6.5-8.0) g/dL Albumin (3.5-5.0) g/dL Lipase (8-78) U/L Urine Color Urine Appearance Urine pH (5.0-9.0) Ur Specific [place] (1.005-1.025) Urine Protein (Neg-Trace) mg/dL Urine Glucose (UA) (Negative) mg/dL Urine Ketones (Negative) mg/dL Urine Blood (Negative) Urine Nitrite (Negative) Ur Leukocyte Esterase (Negative) Urine RBC (0-2) /HPF Urine WBC (0-5) /HPF Ur Squamous Epith Cells (0-2) /HPF Urine Bacteria (None Seen) Hyaline Casts (0-2) /LPF Stool Occult Blood POSITIVE (NEGATIVE) Influenza Type A (PCR) NEGATIVE (Negative) Influenza Type B (PCR) NEGATIVE (Negative) RSV RNA Qual (PCR) NEGATIVE (Negative) SARS-CoV-2 RNA (RT-PCR) NEGATIVE (Negative) Blood Type O Positive Antibody Screen NEGATIVE Crossmatch See Detail Independent Interpretation I performed an independent interpretation of an: CT Scan (Head/chest/abdomen pelvis: No intracranial pathology, multiple consultation in the lungs, no acute pathology in the abdomen.) Radiology Impression Discussion of test interpretation with radiology: I have reviewed the radiologist's reading. Critical Care Time Critical Care Time Critical Care Time: Yes Total Critical Care Time: 60 Attestation: I spent 60 minutes providing critical care service to the patient, this including time spent at the bedside to evaluate the patient, reassess the patient, monitoring vital signs, review labs, and radiographic studies, counseling the patient/family, discussing the case with consultants, disposition the patient. Discharge Plan Discharge Clinical Impression: Pneumonia, Sepsis, Anemia Patient Disposition: Admitted As Inpatient
[2022-12-22 08:29] LABS: Alanine Aminotransferase 111 U/L (0-40); Albumin Level 2.9 g/dL (3.5-5.0); Alkaline Phosphatase 229 U/L (39-117); Anion Gap 15 (12-20); Aspartate Amino Transferase 111 U/L (5-37); Bilirubin Direct 0.4 mg/dL (0.0-0.5); Bilirubin Total 0.8 mg/dL (0.0-1.0); Blood Urea Nitrogen 17 mg/dL (9-16); Calcium 8.7 mg/dL (8.4-10.2); Carbon Dioxide 25 mmol/L (22-29); Chloride 93 mmol/L (96-108); Creatinine Clr Calc Pharmacy 71.4; Estimated Glomerular Filt Rate > 60; Glucose Random 94 mg/dL (60-115); Lipase 46 U/L (8-78); Potassium 4.8 mmol/L (3.3-5.1); Sodium 128 mmol/L (135-145); Total Protein 6.5 g/dL (6.5-8.0)
--- NOTE | 2022-12-22 09:17 | PHA.MEDREC ---
Pharmacy Consult ? Medication Reconciliation Pharmacy has completed the medication reconciliation. spoke with family member over the phone. Confirmed patients medications and verified with claim history.
--- NOTE | 2022-12-22 09:37 | PC.NURSE ---
Patient resting on stretcher at this time. Patient O2 sat noted to be low, in the high 80's, O2 increased to 4L, patient at 94% at this time.
--- NOTE | 2022-12-22 14:20 | PC.NURSE ---
Patient finished unit of blood, no s/s of adverse reaction noted, vital signs stable.
--- NOTE | 2022-12-22 15:47 | PM.IMHP ---
History of Present Illness Date of Service: 12/22/22 Attending physician on admission: [facility] Chief Complaint: syncope, cough, weakness 72-year-old male with history of unspecified congestive heart failure, hypertension, paroxysmal atrial fibrillation not on anticoagulation, and mild persistent asthma presents to the ED from home where he resides by himself via EMS for evaluation of multiple syncopal episodes, cough, and shortness of breath. He states for the last 4-5 days he has been coughing so hard that he has passed out and fallen to the ground. He has been able to get himself up but over the last few days has become progressively weaker making this more difficult prompting him to call EMS for assistance. He denies any fevers at home, rigors, sore throat, nasal congestion, abd pain, diarrhea, constipation, nausea, vomiting, urinary symptoms, palpitations, orthopnea, PND, or chest pressure. He is endorsing associated pleuritic chest pain and diffuse body aches. He has also noted painless BRBPR ongoing about 3-4 weeks. Denies any history smoking. No etoh or illicit drug use. On arrival, EMS noted patient to be hypoxic to 88%. He denies any fevers at home but on arrival to the ED, he was febrile and hypoxia persisted to is placed on 2 L supplemental O2 to maintain oximetry run 95%. He has also been tachypneic up to 28. No hypotension. There is leukocytosis of 20.0. Microcytic anemia with H/H 7.1/25.7% MCV 59.9. Creatinine 1.04, BUN 17, sodium 128, potassium 4.8, chloride 93, CO2 25, bilirubin within normal limits, AST 111, ALT 111, alk-phos 229, total CK 46, troponin within normal limits. Lactic acid normal. Urinalysis unremarkable. Stool occult blood positive. Negative for influenza, RSV, COVID-19. Head CT negative for any acute intracranial abnormality. CXR is negative for any acute cardiopulmonary abnormality but did show chronic thickening of the bronchial geiger, mild atelectasis at the right lateral lung base and atelectasis or airspace disease in the medial left lung base. Abdominal U.S. showing mild hepatomegaly with lobulated contour but no focal lesion and no evidence of acute cholecystitis. CT of the abdomen/pelvis negative for any acute intra-abdominal abnormality it shows enlarged prostate. Chest CT showing multiple lung masses/consolidations with central lucency and small bilateral pleural effusions as well as cardiomegaly. In the ED, type and screen performed and patient transfused 1 unit packed red blood cells. He was also treated with 2 g IV magnesium, 125 mg IV methylprednisolone, IV doxycycline, IV Rocephin, DuoNeb, and 1 L IV NS. Review of Systems Review of Systems: General: No fevers, malaise, unintentional weight loss HEENT: No sore throat, nasal congestion, rhinorrhea, sinus pain, ear pain Cardiovascular: No chest pressure, palpitations, or leg edema Respiratory: +sob, wheezing, cough, +pleuritic cp GI: +BRBPR. No abdominal pain, nausea, vomiting, diarrhea, constipation, melena : No dysuria, hematuria, increased urinary frequency, decreased urinary output MSK: +diffuse myalgia Neuro: No headaches, weakness, paresthesias. +syncope Skin: No rashes or lesions [facility] Medical History (Updated 12/22/22 @ 16:19 by JONAS Bui) Afib Asthma CHF (congestive heart failure) GERD (gastroesophageal reflux disease) Family History Brother Pancreatic cancer Other No family history of coronary artery disease Surgical History No pertinent past surgical history Social History Household Members: None Housing: House Do you presently have visiting nurse or other home services: No Alcohol intake: never Patient Tobacco Use Status: Never used Tobacco Smoked in Last 30 Days: No Use of substances other than those prescribed or required for medical reasons: Refusing to respond Substance Use Type: Former Substance User Currently Displaying Signs/Symptoms of Drug Intoxication Withdrawal: No Advance Directives: Yes Advance Directives on File: Yes Advance Directives Date on File: 08/21/21 Do you have thoughts of harming others: None Do you have a plan to hurt others: No Plan Recently lost weight without trying: Unsure Eating poorly because of decreased appetite: No Nutrition Risks: No Nutritional Risk service: Yes Current occupational status: retired Meds Allergies Allergy/AdvReac Type Severity Reaction Status Date / Time No Known Allergies Allergy Verified 11/26/21 10:13 Active Medications: Current Medications Acetaminophen (Acetaminophen 325 Mg Tablet) 650 mg PO Q6H PRN PRN Reason: Pain, Mild (Pain Scale 1-3) Albuterol Sulfate (Albuterol Sulfate 90 Mcg 8 Gm Inhaler) 2 puff INHALE Q4H [facility] Albuterol/Ipratropium (Albuterol/Iprat 2.5/0.5mg 3 Ml Ampul.Neb) 3 ml INHALE RQ4H WHILE AWAKE [facility] Benzonatate (Benzonatate 100 Mg Capsule) 100 mg PO TID [facility] Docusate Sodium (Docusate Sodium 100 Mg Capsule) 100 mg PO DAILY PRN PRN Reason: Constipation Enoxaparin Sodium (Enoxaparin Sodium 40 Mg/0.4 Ml Syringe) 40 mg SUBCUT Q24H [facility] Furosemide (Furosemide 40 Mg Tablet) 40 mg PO DAILY [facility]; Protocol Guaifenesin/Codeine Phosphate (Guaifen/Codeine Sf 200/20/10ml 10 Ml Liquid) 5 ml PO Q6H PRN PRN Reason: Cough Doxycycline Hyclate 100 mg/ (Sodium Chloride) 250 mls @ 166.67 mls/hr IV ONCE ONE Stop: 12/22/22 16:05 Last Admin: 12/22/22 15:04 Dose: 166.67 mls/hr Doxycycline Hyclate 100 mg/ (Sodium Chloride) 250 mls @ 166.67 mls/hr IV Q12H [facility] Ceftriaxone Sodium 1 gm/ (Sodium Chloride) 50 mls @ 100 mls/hr IV Q24H [facility] Lisinopril (Lisinopril 5 Mg Tablet) 5 mg PO DAILY [facility]; Protocol Methylprednisolone Sodium Succinate (Methylprednisolone Sod Succ 40 Mg/Ml Vial) 40 mg IVPUSH Q8H [facility] Metoprolol Succinate (Metoprolol Succinate Er 25 Mg Tab.Er.24h) 75 mg PO DAILY [facility]; Protocol Non-Formulary Medication (Fluticasone Propionate [Flovent Hfa]) 1 puff PO BID [facility] Omeprazole (Omeprazole 40 Mg Capsule.Dr) 40 mg PO DAILY@0630 [facility] Ondansetron HCl (Ondansetron Hcl 4 Mg/2 Ml Vial) 4 mg IVPUSH Q8H PRN PRN Reason: Nausea and Vomiting Pharmacy Consult (Consult Rx Perform Med Rec) 1 each MISCELLANE ONCE PRN PRN Reason: Consult order Sodium Chloride (0.9 % Sodium Chloride Flush 3 Ml Syringe) 3 ml IVFLUSH QSHIFT [facility] Home Medications Medication Instructions Recorded Confirmed Last Taken Type fluticasone propionate 110 1 puff PO BID 08/21/21 12/22/22 Unknown History mcg/actuation HFA aerosol inhaler (Flovent HFA) furosemide 40 mg tablet 1 tab PO DAILY 08/21/21 12/22/22 Unknown History lisinopril 5 mg tablet 1 tab PO DAILY 08/21/21 12/22/22 Unknown History metoprolol succinate 50 mg 75 mg PO DAILY 08/21/21 12/22/22 Unknown History tablet,extended release 24 hr albuterol sulfate 90 mcg/actuation 2 puff inhalation Q4H 11/26/21 12/22/22 Unknown History aerosol inhaler (Ventolin HFA) omeprazole 40 mg capsule,delayed 40 mg PO DAILY@0630 12/22/22 12/22/22 Unknown History release Physical Exam Vital Signs and Narrative: Vital Signs: Last Vital Signs Temp 99 F 12/22/22 15:13 Pulse 83 12/22/22 15:13 Resp 24 H 12/22/22 15:13 BP 145/95 H 12/22/22 15:13 Pulse Ox 93 12/22/22 15:13 O2 Del Method Nasal Cannula 12/22/22 15:13 O2 Flow Rate 2 12/22/22 15:13 Oxygen Flow Rate 1 12/22/22 07:23 BMI result Body Mass Index 29.5 Constitutional - Awake and Alert, No apparent distress Eyes - PERRLA, EOMI Cardiovascular - S1S2, RRR, No edema Respiratory - Normal lung expansion, increased work of breathing with accessory muscle usage, diminished lung sounds bilaterally with scattered expiratory wheezes and bibasilar crackles Chest- reproducible ttp acorss anterior chest Gastrointestinal - NT / ND; +BS; No rebound or guarding Extremities - no calf tenderness bilaterally, no swelling Skin - Warm/Dry Neurological - Alert & oriented x3 Psychological - Appropriate affect Results Labs 12/22/22 08:04 12/22/22 08:05 Labs: Laboratory Results - last 24 hr 12/22/22 12/22/22 12/22/22 08:04 08:05 08:05 MCV 59.9 L MCH 16.6 L MCHC 27.6 L RDW 20.8 H Plt Count 485 H D MPV 8.3 L Immature Gran % (Auto) 0.7 H Neut % (Auto) 80.1 H Lymph % (Auto) 3.9 L Graham % (Auto) 5.5 Eos % (Auto) 9.6 H Baso % (Auto) 0.2 Lymph # (Auto) 0.8 L Graham # (Auto) 1.1 Eos # (Auto) 1.9 H Baso # (Auto) 0.0 Abs Immat Gran (auto) 0.15 H Absolute Neuts (auto) 16.0 H Absolute Nucleated RBC 0.020 H Nucleated RBC % (auto) 0.1 Anion Gap 15 Estim Creat Clear Calc 71.4 Estimated GFR > 60 Random Glucose 94 Lactic Acid Calcium 8.7 Total Bilirubin 0.8 Direct Bilirubin 0.4 AST 111 H ALT 111 H Alkaline Phosphatase 229 H Total Creatine Kinase 46 Troponin I High Sens 11.4 B-Natriuretic Peptide Total Protein 6.5 Albumin 2.9 L Lipase 46 Urine Color Urine Appearance Urine pH Ur Specific [place] Urine Protein Urine Glucose (UA) Urine Ketones Urine Blood Urine Nitrite Ur Leukocyte Esterase Urine RBC Urine WBC Ur Squamous Epith Cells Urine Bacteria Hyaline Casts Stool Occult Blood Influenza Type A (PCR) Influenza Type B (PCR) RSV RNA Qual (PCR) SARS-CoV-2 RNA (RT-PCR) Blood Type Antibody Screen Crossmatch 12/22/22 12/22/22 12/22/22 08:05 08:05 08:46 MCV MCH MCHC RDW Plt Count MPV Immature Gran % (Auto) Neut % (Auto) Lymph % (Auto) Graham % (Auto) Eos % (Auto) Baso % (Auto) Lymph # (Auto) Graham # (Auto) Eos # (Auto) Baso # (Auto) Abs Immat Gran (auto) Absolute Neuts (auto) Absolute Nucleated RBC Nucleated RBC % (auto) Anion Gap Estim Creat Clear Calc Estimated GFR Random Glucose Lactic Acid 1.1 Calcium Total Bilirubin Direct Bilirubin AST ALT Alkaline Phosphatase Total Creatine Kinase Troponin I High Sens B-Natriuretic Peptide 395 H Total Protein Albumin Lipase Urine Color Yellow Urine Appearance Clear Urine pH 6.0 Ur Specific [place] 1.015 Urine Protein Negative Urine Glucose (UA) Negative Urine Ketones Negative Urine Blood Moderate (2+) H Urine Nitrite Negative Ur Leukocyte Esterase Negative Urine RBC >20 H Urine WBC 0-5 Ur Squamous Epith Cells 0-2 Urine Bacteria None Seen Hyaline Casts 0-2 Stool Occult Blood Influenza Type A (PCR) Influenza Type B (PCR) RSV RNA Qual (PCR) SARS-CoV-2 RNA (RT-PCR) Blood Type Antibody Screen Crossmatch 12/22/22 12/22/22 12/22/22 08:55 09:12 09:59 MCV MCH MCHC RDW Plt Count MPV Immature Gran % (Auto) Neut % (Auto) Lymph % (Auto) Graham % (Auto) Eos % (Auto) Baso % (Auto) Lymph # (Auto) Graham # (Auto) Eos # (Auto) Baso # (Auto) Abs Immat Gran (auto) Absolute Neuts (auto) Absolute Nucleated RBC Nucleated RBC % (auto) Anion Gap Estim Creat Clear Calc Estimated GFR Random Glucose Lactic Acid Calcium Total Bilirubin Direct Bilirubin AST ALT Alkaline Phosphatase Total Creatine Kinase Troponin I High Sens B-Natriuretic Peptide Total Protein Albumin Lipase Urine Color Urine Appearance Urine pH Ur Specific [place] Urine Protein Urine Glucose (UA) Urine Ketones Urine Blood Urine Nitrite Ur Leukocyte Esterase Urine RBC Urine WBC Ur Squamous Epith Cells Urine Bacteria Hyaline Casts Stool Occult Blood POSITIVE Influenza Type A (PCR) NEGATIVE Influenza Type B (PCR) NEGATIVE RSV RNA Qual (PCR) NEGATIVE SARS-CoV-2 RNA (RT-PCR) NEGATIVE Blood Type O Positive Antibody Screen NEGATIVE Crossmatch See Detail Imaging Radiologist's Impressions: Impressions Chest X-Ray 12/22/22 07:49 IMPRESSION: * The current radiographic findings are similar compared to 09/01/2021. * There appears to be chronic thickening of the bronchial egiger, mild atelectasis at the right lateral lung base and atelectasis or airspace disease in the medial left lung base. Bronchitis or pneumonia would have to be excluded on the basis of clinical criteria. Knee X-Ray 12/22/22 07:49 IMPRESSION: Soft tissue swelling medially possibly bursal without effusion. No definite fracture. Advanced degenerative changes especially medial femoral joint compartment loose body. This is possibly on the basis of an old osteochondral injury medial femoral condyle. Head CT 12/22/22 09:09 IMPRESSION: No acute intracranial process seen Abdomen Ultrasound 12/22/22 10:14 IMPRESSION: Mild hepatomegaly with lobulated contour. No focal lesion seen. 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 Unremarkable CBD, right kidney and the visualized pancreas. Abdomen/Pelvis CT 12/22/22 13:12 IMPRESSION: 1. Multiple lung masses and consolidations with central lucency . 2. Small bilateral pleural effusion. 3. Cardiomegaly. 4. Prostatomegaly.. 5. Limited evaluation of mediastinum due to noncontrast technique. Chest CT 12/22/22 13:12 IMPRESSION: 1. Multiple lung masses and consolidations with central lucency . 2. Small bilateral pleural effusion. 3. Cardiomegaly. 4. Prostatomegaly.. 5. Limited evaluation of mediastinum due to noncontrast technique. Assessment and Plan (1) Pneumonia: Status: Acute (2) Sepsis: Status: Acute (3) Syncope and collapse: Status: Acute (4) Anemia: Status: Acute Plan 72-year-old male with history of unspecified congestive heart failure, hypertension, paroxysmal atrial fibrillation not on anticoagulation, and mild persistent asthma admitted for acute pneumonia with sepsis and acute hypoxemic respiratory failure. #Acute pneumonia with sepsis -leukocytosis 20, mild tachycardia, tachypneic to 30, febrile to 101.6. Lactic acid normal, no end organ damage. No severe sepsis or shock -Negative for COVID-19, RSV, Influenza -Chest CT showing multiple lung masses/consolidations in the right lung -IV ceftriaxone and doxycycline (initiated 12/22) -Sputum culture, strep pneumo ag, legionella ag pending -Symptomatic management -Follow CBC, cultures -Outpt follow up to ensure resolutation mass/consolidations seen on chest CT #Acute hypoxemic respiratory failure -2/2 above -Continue supplemeental O2 to maintain oximetry >92% #Mild persistent asthma- with acute exacerbation -IV methylprednisolone 40mg BID -Duonebs q4h while awake -albuterol prn -Continue flovent BID #Recurrent syncope with collapse and generalized weakness -likely r/t to aggressive coughing fits vs symptomatic anemia vs cocaine abuse -Head CT unremarkable, EKG reassuring, electrolytes reassuring -Tranfused 1 unit PRCB -Monitor on telemetry -Treat pneumonia as above -PT eval #BRBPR -Stool occult positive -GI consult #Acute on Chronic symptomatic microcytic anemia- likely r/t above -Iron studies pending -H/H 7.1/25.7%, MCV 59.9 -Transfused 1 unit PRBC, goal Hgb >8.0 -Repeat CBC @6, follow daily -GI consult #Cocaine abuse -pt denies use, but utox positive for cocaine -addiction medicine consult #Paroxysmal atrial fibrillation- rate controlled -not on anticoagulation -continue metoprolol #Unspecified CHF -no acute exacerbation clinically, BNP 395 (last measured 772) -does have bilateral pleural effusions and received 1L IV NS and 1 unit PRBC. Give 20mg IV lasix now -Continue PO lasix #HTN -reasonably controlled -continue home meds DVT prophylaxis- lovenox Full code Pt requires inpt stay at least 2 midnights for management of acute pneumonia with sepsis and hypoxia requiring IV abx and supplemental O2 and close monitoring to prevent decompensation as well as management of acute on chronic symptomtic anemia requiring blood transfusion Time Spent With Patient Time: Total time managing care of this patient today ____ minutes. Quality Stroke Does the patient have a stroke diagnosis?: No VTE Prior VTE?: No VTE Risk Level:: Medical - moderate - high VTE Device Contraindication: Treatment Not Tolerated VTE Drug Contraindication: N/A - Med Ordered
[2022-12-22 16:18] LABS: Iron 10 mcg/dL (45-160); Percent Iron Saturation 5 % (15-50); Total Iron Binding Capacity 222 mcg/dL (228-428); Unsaturated Iron Binding 212 ug/dL
[2022-12-22 16:38] LABS: Ferritin 188 ng/mL (20-250)
[2022-12-22] MEDS: methylPREDNISolone Sod Succ 40 MG/ML VIAL IVPUSH ×2 (16:54→23:20)
[2022-12-22] MEDS: Benzonatate 100 MG CAPSULE PO ×2 (16:54→21:15)
[2022-12-22] MEDS: Albuterol/Iprat 2.5/0.5MG 3 ML AMPUL.NEB INHALE (17:44)
--- NOTE | 2022-12-22 18:00 | PC.NURSE ---
Patient requesting ice chips which were provided to him.
--- NOTE | 2022-12-22 19:45 | MHC.EDTECH ---
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
--- NOTE | 2022-12-22 20:16 | PC.NURSE ---
Nurse to nurse report given to Andrew medical billing supervisor. patient to be transported to med surg [id number] by transporter.
[2022-12-23] VITALS (8 sets, daily range): BP systolic 135–149; BP diastolic 61–68; PULSE 68–84; RESP 18–20; TEMP 36.3–36.9; O2SAT 92–96
[2022-12-23] MEDS: guaiFEN/Codeine SF 200/20/10ML 10 ML LIQUID 5 ML PO (02:39)
[2022-12-23] MEDS: Omeprazole 40 MG CAPSULE.DR PO (05:39)
[2022-12-23] MEDS: Benzonatate 100 MG CAPSULE PO ×2 (07:39→14:14)
[2022-12-23] MEDS: Metoprolol Succinate ER 25 MG TAB.ER.24H 75 MG PO (07:39)
[2022-12-23] MEDS: methylPREDNISolone Sod Succ 40 MG/ML VIAL IVPUSH ×3 (07:39→23:54)
--- NOTE | 2022-12-23 08:17 | HO.PM.IMPN ---
Subjective Subjective Date of Service: 12/23/22 Interval History: f/u on sepsis, pneumonia, anemia interval history: Overall much better, no sob, no fever, no longer fit sepsis criteri Physical Exam Vital Signs: Vital Signs: Last Vital Signs Temp 97.5 F 12/23/22 07:26 Pulse 79 12/23/22 07:26 Resp 20 12/23/22 07:26 BP 149/68 H 12/23/22 07:26 Pulse Ox 92 12/23/22 07:26 O2 Del Method Nasal Cannula 12/23/22 07:26 O2 Flow Rate 2 12/23/22 07:26 Oxygen Flow Rate 1 12/22/22 07:23 BMI result Body Mass Index 29.5 Const: Other: General: AO X 3, no acute distress Resp: CTA bilateral CVS: S1,S2,RRR GI: +BS, NT, no distention Skin: No rash Neuro: motor grossly intact Psych: appropriate affect Objective Data Active Medications Acetaminophen (Acetaminophen 325 Mg Tablet) 650 mg PO Q6H PRN PRN Reason: Pain, Mild (Pain Scale 1-3) Albuterol Sulfate (Albuterol Sulfate 90 Mcg 8 Gm Inhaler) 2 puff INHALE Q4H PRN PRN Reason: Shortness of Breath/Wheezing Albuterol/Ipratropium (Albuterol/Iprat 2.5/0.5mg 3 Ml Ampul.Neb) 3 ml INHALE RQ4H WHILE AWAKE [facility] Last Admin: 12/22/22 17:44 Dose: 3 ml Documented By: KP Benzonatate (Benzonatate 100 Mg Capsule) 100 mg PO TID [facility] Last Admin: 12/23/22 07:39 Dose: 100 mg Documented By: MANDIE Docusate Sodium (Docusate Sodium 100 Mg Capsule) 100 mg PO DAILY PRN PRN Reason: Constipation Enoxaparin Sodium (Enoxaparin Sodium 40 Mg/0.4 Ml Syringe) 40 mg SUBCUT Q24H [facility] Last Admin: 12/22/22 16:53 Dose: 40 mg Documented By: JANA Fluticasone Propionate (Fluticasone Propionate 100 Mcg Blst.W.Dev) 1 puff INHALE RBID [facility] Last Admin: 12/22/22 21:34 Dose: Not Given Documented By: HO.WILSOK Non-Admin Reason: See Note Furosemide (Furosemide 40 Mg Tablet) 40 mg PO DAILY [facility]; Protocol Guaifenesin/Codeine Phosphate (Guaifen/Codeine Sf 200/20/10ml 10 Ml Liquid) 5 ml PO Q6H PRN PRN Reason: Cough Last Admin: 12/23/22 02:39 Dose: 5 ml Documented By: VEE Doxycycline Hyclate 100 mg/ (Sodium Chloride) 250 mls @ 166.67 mls/hr IV Q12H [facility] Last Infusion: 12/23/22 04:20 Dose: 0 mls/hr Documented By: VEE Ceftriaxone Sodium 1 gm/ (Sodium Chloride) 50 mls @ 100 mls/hr IV Q24H [facility] Last Admin: 12/23/22 07:39 Dose: 100 mls/hr Documented By: MANDIE Lisinopril (Lisinopril 5 Mg Tablet) 5 mg PO DAILY [facility]; Protocol Last Admin: 12/23/22 07:39 Dose: 5 mg Documented By: MANDIE Methylprednisolone Sodium Succinate (Methylprednisolone Sod Succ 40 Mg/Ml Vial) 40 mg IVPUSH Q8H [facility] Last Admin: 12/23/22 07:39 Dose: 40 mg Documented By: MANDIE Metoprolol Succinate (Metoprolol Succinate Er 25 Mg Tab.Er.24h) 75 mg PO DAILY [facility]; Protocol Last Admin: 12/23/22 07:39 Dose: 75 mg Documented By: MANDIE Omeprazole (Omeprazole 40 Mg Capsule.Dr) 40 mg PO DAILY@0630 [facility] Last Admin: 12/23/22 05:39 Dose: 40 mg Documented By: VEE Ondansetron HCl (Ondansetron Hcl 4 Mg/2 Ml Vial) 4 mg IVPUSH Q8H PRN PRN Reason: Nausea and Vomiting Pharmacy Consult (Consult Rx Perform Med Rec) 1 each MISCELLANE ONCE PRN PRN Reason: Consult order Sodium Chloride (0.9 % Sodium Chloride Flush 3 Ml Syringe) 3 ml IVFLUSH QSHIFT [facility] Last Admin: 12/23/22 07:39 Dose: 3 ml Documented By: MANDIE Labs 12/23/22 06:09 12/23/22 06:09 Labs: Laboratory Results - last 24 hr 12/22/22 12/22/22 12/22/22 08:05 08:05 08:05 MCV MCH MCHC RDW Plt Count MPV Immature Gran % (Auto) Neut % (Auto) Lymph % (Auto) [place] % (Auto) Eos % (Auto) Baso % (Auto) Lymph # (Auto) [place] # (Auto) Eos # (Auto) Baso # (Auto) Abs Immat Gran (auto) Absolute Neuts (auto) Absolute Nucleated RBC Nucleated RBC % (auto) Smear Tech's Comments Anion Gap 15 Estim Creat Clear Calc 71.4 Estimated GFR > 60 Random Glucose 94 Lactic Acid Calcium 8.7 Iron 10 L TIBC 222 L % Saturation 5 L Unsat Iron Binding 212 Ferritin 188 Total Bilirubin 0.8 Direct Bilirubin 0.4 AST 111 H ALT 111 H Alkaline Phosphatase 229 H Total Creatine Kinase 46 Troponin I High Sens 11.4 B-Natriuretic Peptide 395 H Total Protein 6.5 Albumin 2.9 L Lipase 46 Urine Color Urine Appearance Urine pH Ur Specific [place] Urine Protein Urine Glucose (UA) Urine Ketones Urine Blood Urine Nitrite Ur Leukocyte Esterase Urine RBC Urine WBC Ur Squamous Epith Cells Urine Bacteria Hyaline Casts Stool Occult Blood Urine Opiates Screen Urine Fentanyl Screen Ur Barbiturates Screen Ur Phencyclidine Scrn Ur Amphetamines Screen U Benzodiazepines Scrn Urine Cocaine Screen U Marijuana (THC) Screen Influenza Type A (PCR) Influenza Type B (PCR) RSV RNA Qual (PCR) SARS-CoV-2 RNA (RT-PCR) Blood Type Antibody Screen Crossmatch 12/22/22 12/22/22 12/22/22 08:05 08:46 08:46 MCV MCH MCHC RDW Plt Count MPV Immature Gran % (Auto) Neut % (Auto) Lymph % (Auto) [place] % (Auto) Eos % (Auto) Baso % (Auto) Lymph # (Auto) [place] # (Auto) Eos # (Auto) Baso # (Auto) Abs Immat Gran (auto) Absolute Neuts (auto) Absolute Nucleated RBC Nucleated RBC % (auto) Smear Tech's Comments Anion Gap Estim Creat Clear Calc Estimated GFR Random Glucose Lactic Acid 1.1 Calcium Iron TIBC % Saturation Unsat Iron Binding Ferritin Total Bilirubin Direct Bilirubin AST ALT Alkaline Phosphatase Total Creatine Kinase Troponin I High Sens B-Natriuretic Peptide Total Protein Albumin Lipase Urine Color Yellow Urine Appearance Clear Urine pH 6.0 Ur Specific [place] 1.015 Urine Protein Negative Urine Glucose (UA) Negative Urine Ketones Negative Urine Blood Moderate (2+) H Urine Nitrite Negative Ur Leukocyte Esterase Negative Urine RBC >20 H Urine WBC 0-5 Ur Squamous Epith Cells 0-2 Urine Bacteria None Seen Hyaline Casts 0-2 Stool Occult Blood Urine Opiates Screen Not Detected Urine Fentanyl Screen Not Detected Ur Barbiturates Screen Not Detected Ur Phencyclidine Scrn Not Detected Ur Amphetamines Screen Not Detected U Benzodiazepines Scrn Not Detected Urine Cocaine Screen POSITIVE H U Marijuana (THC) Screen Not Detected Influenza Type A (PCR) Influenza Type B (PCR) RSV RNA Qual (PCR) SARS-CoV-2 RNA (RT-PCR) Blood Type Antibody Screen Crossmatch 12/22/22 12/22/22 12/22/22 08:55 09:12 09:59 MCV MCH MCHC RDW Plt Count MPV Immature Gran % (Auto) Neut % (Auto) Lymph % (Auto) [place] % (Auto) Eos % (Auto) Baso % (Auto) Lymph # (Auto) [place] # (Auto) Eos # (Auto) Baso # (Auto) Abs Immat Gran (auto) Absolute Neuts (auto) Absolute Nucleated RBC Nucleated RBC % (auto) Smear Tech's Comments Anion Gap Estim Creat Clear Calc Estimated GFR Random Glucose Lactic Acid Calcium Iron TIBC % Saturation Unsat Iron Binding Ferritin Total Bilirubin Direct Bilirubin AST ALT Alkaline Phosphatase Total Creatine Kinase Troponin I High Sens B-Natriuretic Peptide Total Protein Albumin Lipase Urine Color Urine Appearance Urine pH Ur Specific [place] Urine Protein Urine Glucose (UA) Urine Ketones Urine Blood Urine Nitrite Ur Leukocyte Esterase Urine RBC Urine WBC Ur Squamous Epith Cells Urine Bacteria Hyaline Casts Stool Occult Blood POSITIVE Urine Opiates Screen Urine Fentanyl Screen Ur Barbiturates Screen Ur Phencyclidine Scrn Ur Amphetamines Screen U Benzodiazepines Scrn Urine Cocaine Screen U Marijuana (THC) Screen Influenza Type A (PCR) NEGATIVE Influenza Type B (PCR) NEGATIVE RSV RNA Qual (PCR) NEGATIVE SARS-CoV-2 RNA (RT-PCR) NEGATIVE Blood Type O Positive Antibody Screen NEGATIVE Crossmatch See Detail 12/22/22 12/23/22 12/23/22 18:21 06:09 06:09 MCV 63.2 L 62.7 L MCH 18.0 L 17.7 L MCHC 28.4 L 28.2 L RDW 23.9 H 24.1 H Plt Count 483 H 483 H MPV 8.5 L 9.0 L Immature Gran % (Auto) 1.0 H 1.0 H Neut % (Auto) 95.3 H 93.8 H Lymph % (Auto) 2.6 L 3.7 L [place] % (Auto) 0.9 L 1.3 L Eos % (Auto) 0.1 0.0 Baso % (Auto) 0.1 0.2 Lymph # (Auto) 0.5 L 0.5 L [place] # (Auto) 0.2 0.2 Eos # (Auto) 0.0 0.0 Baso # (Auto) 0.0 0.0 Abs Immat Gran (auto) 0.17 H 0.12 H Absolute Neuts (auto) 16.7 H 11.6 H Absolute Nucleated RBC 0.000 0.000 Nucleated RBC % (auto) 0.0 0.0 Smear Tech's Comments VERIFIED Anion Gap 14 Estim Creat Clear Calc 79.0 Estimated GFR > 60 Random Glucose 210 H Lactic Acid Calcium 8.5 Iron TIBC % Saturation Unsat Iron Binding Ferritin Total Bilirubin 0.5 Direct Bilirubin AST 41 H ALT 70 H Alkaline Phosphatase 174 H Total Creatine Kinase Troponin I High Sens B-Natriuretic Peptide Total Protein 5.9 L Albumin 2.7 L Lipase Urine Color Urine Appearance Urine pH Ur Specific [place] Urine Protein Urine Glucose (UA) Urine Ketones Urine Blood Urine Nitrite Ur Leukocyte Esterase Urine RBC Urine WBC Ur Squamous Epith Cells Urine Bacteria Hyaline Casts Stool Occult Blood Urine Opiates Screen Urine Fentanyl Screen Ur Barbiturates Screen Ur Phencyclidine Scrn Ur Amphetamines Screen U Benzodiazepines Scrn Urine Cocaine Screen U Marijuana (THC) Screen Influenza Type A (PCR) Influenza Type B (PCR) RSV RNA Qual (PCR) SARS-CoV-2 RNA (RT-PCR) Blood Type Antibody Screen Crossmatch Assessment and Plan (1) Pneumonia: Status: Acute (2) Sepsis: Status: Acute (3) Syncope and collapse: Status: Acute Plan 72-year-old male with history of unspecified congestive heart failure, hypertension, paroxysmal atrial fibrillation not on anticoagulation, and mild persistent asthma admitted for acute pneumonia with sepsis and acute hypoxemic respiratory failure. # Sepsis d/t pneumonia POA, clinically responding to treatment. WBC down, fever,tachycardia amd tachypneic resolved, no longer septic --Sputum culture, strep pneumo ag, legionella ag pending -continue -IV ceftriaxone and doxycycline (initiated 12/22) #Lung massess on CT showing multiple lung masses--concern for malignanct -pulmonology consult ? need for bronch or bx #Acute hypoxemic respiratory failure--d/t above -Continue supplemeental O2 to maintain oximetry >92% #Mild persistent asthma- with acute exacerbation -IV methylprednisolone 40mg BID--change to Prednisone tomorrow -Duonebs q4h while awake -albuterol prn -Continue flovent BID #Recurrent syncope with collapse and generalized weakness, likely related to coughing fit #BRBPR, Acute blood loss anemia s/p 1 unit of RBC -Stool occult positive -GI consult pending #Cocaine abuse -pt denies use, but utox positive for cocaine -addiction medicine consult #Paroxysmal atrial fibrillation- rate controlled -not on anticoagulation -continue metoprolol #Unspecified CHF, compensated, continue oral Lasix #HTN--continue home meds DVT prophylaxis- lovenox (dc if anemia worsening) Full code Need for inpatient: Treatment for sepsis, penumonia, anemia work up Time Spent With Patient Time: Total time managing care of this patient today ____ minutes. Quality Stroke Does the patient have a stroke diagnosis?: No VTE Prior VTE?: No VTE Risk Level:: Medical - moderate - high VTE Device Contraindication: Treatment Not Tolerated VTE Drug Contraindication: N/A - Med Ordered
[2022-12-23] MEDS: Albuterol/Iprat 2.5/0.5MG 3 ML AMPUL.NEB INHALE ×3 (08:18→19:38)
--- NOTE | 2022-12-23 12:58 | PM.CNPUL ---
History of Present Illness History of Present Illness Consult date: 12/23/22 Chief complaint: Pneumonia, sepsis, hypoxia Narrative: This is an inpatient pulmonary consultation. The patient is a 72-year-old male with history of unspecified congestive heart failure, hypertension, paroxysmal atrial fibrillation not on anticoagulation, and mild persistent asthma presents to the ED from home where he resides by himself via EMS for evaluation of multiple syncopal episodes, cough, and shortness of breath.? He states for the last 4-5 days he has been coughing so hard that he has passed out and fallen to the ground.? He has been able to get himself up but over the last few days has become progressively weaker making this more difficult prompting him to call EMS for assistance. He denies any fevers at home, rigors, sore throat, nasal congestion, abd pain, diarrhea, constipation, nausea, vomiting, urinary symptoms, palpitations, orthopnea, PND, or chest pressure. He is endorsing associated pleuritic chest pain and diffuse body aches. He has also noted painless BRBPR ongoing about 3-4 weeks. Denies any history smoking. No etoh or illicit drug use. On arrival, EMS noted patient to be hypoxic to 88%.? He denies any fevers at home but on arrival to the ED, he was febrile and hypoxia persisted to is placed on 2 L supplemental O2 to maintain oximetry run 95%.? He has also been tachypneic up to 28.? No hypotension.? There is leukocytosis of 20.0.? Microcytic anemia with H/H 7.1/25.7%. CT of the abdomen/pelvis negative for any acute intra-abdominal abnormality it shows enlarged prostate.? Chest CT showing multiple lung masses/consolidations with central lucency and small bilateral pleural effusions as well as cardiomegaly.? In the ED, type and screen performed and patient transfused 1 unit packed red blood cells.? He was also treated with 2 g IV magnesium, 125 mg IV methylprednisolone, IV doxycycline, IV Rocephin, DuoNeb, and 1 L IV NS. Review of Systems Review of Systems: General: No fevers, malaise, unintentional weight loss HEENT: No sore throat, nasal congestion, rhinorrhea, sinus pain, ear pain Cardiovascular: No chest pressure, palpitations, or leg edema Respiratory: +sob, wheezing, cough, +pleuritic cp GI: +BRBPR. No abdominal pain, nausea, vomiting, diarrhea, constipation, melena : No dysuria, hematuria, increased urinary frequency, decreased urinary output MSK: +diffuse myalgia Neuro: No headaches, weakness, paresthesias. +syncope Skin: No rashes or lesions [facility] Past Medical History Medical History (Updated 12/23/22 @ 13:02 by Domo Soares MD) Afib Asthma CHF (congestive heart failure) Cough GERD (gastroesophageal reflux disease) Lung mass Family History Family History Brother Pancreatic cancer Other No family history of coronary artery disease Surgical History Surgical History No pertinent past surgical history Social History Social History Household Members: None Housing: House Do you presently have visiting nurse or other home services: No Alcohol intake: never Patient Tobacco Use Status: Never used Tobacco Smoked in Last 30 Days: No Use of substances other than those prescribed or required for medical reasons: Refusing to respond Substance Use Type: Former Substance User Currently Displaying Signs/Symptoms of Drug Intoxication Withdrawal: No Advance Directives: Yes Advance Directives on File: Yes Advance Directives Date on File: 08/21/21 Do you have thoughts of harming others: None Do you have a plan to hurt others: No Plan Recently lost weight without trying: Unsure Eating poorly because of decreased appetite: No Nutrition Risks: No Nutritional Risk service: Yes Current occupational status: retired [employer] Allergies Allergy/AdvReac Type Severity Reaction Status Date / Time No Known Allergies Allergy Verified 11/26/21 10:13 Active Medications: Current Medications Acetaminophen (Acetaminophen 325 Mg Tablet) 650 mg PO Q6H PRN PRN Reason: Pain, Mild (Pain Scale 1-3) Albuterol Sulfate (Albuterol Sulfate 90 Mcg 8 Gm Inhaler) 2 puff INHALE Q4H PRN PRN Reason: Shortness of Breath/Wheezing Albuterol/Ipratropium (Albuterol/Iprat 2.5/0.5mg 3 Ml Ampul.Neb) 3 ml INHALE RQ4H WHILE AWAKE [facility] Last Admin: 12/23/22 11:16 Dose: 3 ml Benzonatate (Benzonatate 100 Mg Capsule) 100 mg PO TID [facility] Last Admin: 12/23/22 07:39 Dose: 100 mg Docusate Sodium (Docusate Sodium 100 Mg Capsule) 100 mg PO DAILY PRN PRN Reason: Constipation Enoxaparin Sodium (Enoxaparin Sodium 40 Mg/0.4 Ml Syringe) 40 mg SUBCUT Q24H [facility] Last Admin: 12/22/22 16:53 Dose: 40 mg Fluticasone Propionate (Fluticasone Propionate 100 Mcg Blst.W.Dev) 1 puff INHALE RBID [facility] Last Admin: 12/23/22 08:20 Dose: Not Given Furosemide (Furosemide 40 Mg Tablet) 40 mg PO DAILY [facility]; Protocol Guaifenesin/Codeine Phosphate (Guaifen/Codeine Sf 200/20/10ml 10 Ml Liquid) 5 ml PO Q6H PRN PRN Reason: Cough Last Admin: 12/23/22 02:39 Dose: 5 ml Doxycycline Hyclate 100 mg/ (Sodium Chloride) 250 mls @ 166.67 mls/hr IV Q12H [facility] Last Infusion: 12/23/22 04:20 Dose: Infused Ceftriaxone Sodium 1 gm/ (Sodium Chloride) 50 mls @ 100 mls/hr IV Q24H [facility] Last Infusion: 12/23/22 08:36 Dose: Infused Lisinopril (Lisinopril 5 Mg Tablet) 5 mg PO DAILY [facility]; Protocol Last Admin: 12/23/22 07:39 Dose: 5 mg Methylprednisolone Sodium Succinate (Methylprednisolone Sod Succ 40 Mg/Ml Vial) 40 mg IVPUSH Q8H [facility] Last Admin: 12/23/22 07:39 Dose: 40 mg Metoprolol Succinate (Metoprolol Succinate Er 25 Mg Tab.Er.24h) 75 mg PO DAILY [facility]; Protocol Last Admin: 12/23/22 07:39 Dose: 75 mg Omeprazole (Omeprazole 40 Mg Capsule.Dr) 40 mg PO DAILY@0630 [facility] Last Admin: 12/23/22 05:39 Dose: 40 mg Ondansetron HCl (Ondansetron Hcl 4 Mg/2 Ml Vial) 4 mg IVPUSH Q8H PRN PRN Reason: Nausea and Vomiting Pharmacy Consult (Consult Rx Perform Med Rec) 1 each MISCELLANE ONCE PRN PRN Reason: Consult order Sodium Chloride (0.9 % Sodium Chloride Flush 3 Ml Syringe) 3 ml IVFLUSH QSHIFT [facility] Last Admin: 12/23/22 07:39 Dose: 3 ml Home Medications Medication Instructions Recorded Confirmed Last Taken Type fluticasone propionate 110 1 puff PO BID 08/21/21 12/22/22 Unknown History mcg/actuation HFA aerosol inhaler (Flovent HFA) furosemide 40 mg tablet 1 tab PO DAILY 08/21/21 12/22/22 Unknown History lisinopril 5 mg tablet 1 tab PO DAILY 08/21/21 12/22/22 Unknown History metoprolol succinate 50 mg 75 mg PO DAILY 08/21/21 12/22/22 Unknown History tablet,extended release 24 hr albuterol sulfate 90 mcg/actuation 2 puff inhalation Q4H 11/26/21 12/22/22 Unknown History aerosol inhaler (Ventolin HFA) omeprazole 40 mg capsule,delayed 40 mg PO DAILY@0630 12/22/22 12/22/22 Unknown History release Physical Exam Vital Signs: Vital Signs: Last Vital Signs Temp 97.5 F 12/23/22 07:26 Pulse 79 12/23/22 11:17 Resp 20 12/23/22 11:17 BP 149/68 H 12/23/22 07:26 Pulse Ox 92 12/23/22 07:26 O2 Del Method Nasal Cannula 12/23/22 07:26 O2 Flow Rate 2 12/23/22 07:26 Oxygen Flow Rate 1 12/22/22 07:23 BMI result Body Mass Index 29.5 Const: Other: General: AO X 3, no acute distress Resp: CTA bilateral CVS: S1,S2,RRR GI: +BS, NT, no distention Skin: No rash Neuro: motor grossly intact Psych: appropriate affect Results Laboratory Findings 12/23/22 06:09 12/23/22 06:09 Abnormal lab findings: Abnormal Labs 12/22/22 12/22/22 12/22/22 08:04 08:05 08:05 WBC 20.0 H RBC 4.29 L Hgb 7.1 L Hct 25.7 L MCV 59.9 L MCH 16.6 L MCHC 27.6 L RDW 20.8 H Plt Count 485 H D MPV 8.3 L Immature Gran % (Auto) 0.7 H Neut % (Auto) 80.1 H Lymph % (Auto) 3.9 L [place] % (Auto) Eos % (Auto) 9.6 H Lymph # (Auto) 0.8 L Eos # (Auto) 1.9 H Abs Immat Gran (auto) 0.15 H Absolute Neuts (auto) 16.0 H Absolute Nucleated RBC 0.020 H ESR Sodium 128 L Chloride 93 L BUN 17 H Random Glucose Iron 10 L TIBC 222 L % Saturation 5 L AST 111 H ALT 111 H Alkaline Phosphatase 229 H B-Natriuretic Peptide 395 H Total Protein Albumin 2.9 L Urine Blood Urine RBC Urine Cocaine Screen Crossmatch 12/22/22 12/22/22 12/22/22 08:46 08:46 09:12 WBC RBC Hgb Hct MCV MCH MCHC RDW Plt Count MPV Immature Gran % (Auto) Neut % (Auto) Lymph % (Auto) [place] % (Auto) Eos % (Auto) Lymph # (Auto) Eos # (Auto) Abs Immat Gran (auto) Absolute Neuts (auto) Absolute Nucleated RBC ESR Sodium Chloride BUN Random Glucose Iron TIBC % Saturation AST ALT Alkaline Phosphatase B-Natriuretic Peptide Total Protein Albumin Urine Blood Moderate (2+) H Urine RBC >20 H Urine Cocaine Screen POSITIVE H Crossmatch See Detail 12/22/22 12/23/22 12/23/22 18:21 06:09 06:09 WBC 17.5 H 12.4 H RBC 4.13 L Hgb 8.7 L D 7.3 L Hct 30.6 L 25.9 L MCV 63.2 L 62.7 L MCH 18.0 L 17.7 L MCHC 28.4 L 28.2 L RDW 23.9 H 24.1 H Plt Count 483 H 483 H MPV 8.5 L 9.0 L Immature Gran % (Auto) 1.0 H 1.0 H Neut % (Auto) 95.3 H 93.8 H Lymph % (Auto) 2.6 L 3.7 L [place] % (Auto) 0.9 L 1.3 L Eos % (Auto) Lymph # (Auto) 0.5 L 0.5 L Eos # (Auto) Abs Immat Gran (auto) 0.17 H 0.12 H Absolute Neuts (auto) 16.7 H 11.6 H Absolute Nucleated RBC ESR Sodium 129 L Chloride BUN 22 H Random Glucose 210 H Iron TIBC % Saturation AST 41 H ALT 70 H Alkaline Phosphatase 174 H B-Natriuretic Peptide Total Protein 5.9 L Albumin 2.7 L Urine Blood Urine RBC Urine Cocaine Screen Crossmatch 12/23/22 06:09 WBC RBC Hgb Hct MCV MCH MCHC RDW Plt Count MPV Immature Gran % (Auto) Neut % (Auto) Lymph % (Auto) [place] % (Auto) Eos % (Auto) Lymph # (Auto) Eos # (Auto) Abs Immat Gran (auto) Absolute Neuts (auto) Absolute Nucleated RBC ESR 71 H Sodium Chloride BUN Random Glucose Iron TIBC % Saturation AST ALT Alkaline Phosphatase B-Natriuretic Peptide Total Protein Albumin Urine Blood Urine RBC Urine Cocaine Screen Crossmatch Microbiology: Microbiology 12/22/22 08:17 Blood - Venous Blood Culture - Preliminary No growth after 24 hours. 12/22/22 08:17 Blood - Venous Blood Culture - Preliminary No growth after 24 hours. Assessment and Plan (1) Pneumonia: Status: Acute (2) Asthma: Status: Acute (3) Cough: Status: Acute (4) Lung mass: Status: Acute Plan The CT chest demonstrates mass like densities. Malignancy in high in the differential. Although, infectious process is also possible. Currently on Abx and clinically feeling better. The patient also noted to have active asthma and active GIB. REC: Prednisone taper complete 8 days of abx therapy continue nebulizer therapy oxygen to keep pox > 92% Should have his GIB / anemia assessed consider a modified barium swallow, having a coughing fit while eating linda crackers while I was in the room. Will need close outpt pulmonary f/u to address the lung masses.-MAy benefit from PET Time Spent With Patient Time: Total time managing care of this patient today ____ minutes. Procedures Date of Service Date of Service: 12/23/22
--- NOTE | 2022-12-23 13:23 | MHC.CM.PN ---
pt lives alone had no previous servceis has own ride home ?vna if needed
--- NOTE | 2022-12-23 14:06 | MHC.RECOVRN ---
Met with pt in 361 after consult placed to Addiction Medicine. Pt admitted to [facility] for pneumonia, sepsis, and hypoxia after presenting to ED unkempt and hypoxic. Pt sitting in bed, awake, alert, difficult to engage in conversation. Pt reports using cocaine, [place], once in awhile. Pt unable to quantify how much, states I never have to pay for it. Pt reports he began using cocaine in the 60s, states I just like it. I've always liked it. Pt does not believe cocaine use is problematic, denies regular use. Pt is not interested in recovery support/resources at this time. Encouraged to notify RN if he would like to discuss further. Denies questions or concerns. Discussed with Octavia Velasco APRN.
--- NOTE | 2022-12-23 15:12 | PM.EVENT ---
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
[2022-12-24] VITALS (8 sets, daily range): BP systolic 106–148; BP diastolic 58–68; PULSE 69–84; RESP 18–20; TEMP 36–36.6; O2SAT 90–95
[2022-12-24] MEDS: guaiFEN/Codeine SF 200/20/10ML 10 ML LIQUID 5 ML PO ×3 (04:55→20:50)
[2022-12-24] MEDS: Omeprazole 40 MG CAPSULE.DR PO ×2 (04:56→16:11)
[2022-12-24 05:21] LABS: Hematocrit 27.4 % (42.0-52.0); Hemoglobin 7.5 g/dl (14.0-18.0); Mean Corpuscular HGB Conc 27.4 g/dl (31.0-36.0); Mean Corpuscular Hemoglobin 18.1 pg (27.0-33.0); Mean Platelet Volume 8.5 fL (9.4-12.4); NRBC Pct Auto 0.3 /100WBC (0.0-0.2); Platelet Count 568 X10*3/uL (160-400); Red Blood Count 4.15 X10*6/uL (4.60-5.80); Red Cell Distribution Width 25.1 % (11.0-16.0); White Blood Count 15.1 X10*3/uL (4.8-10.8)
[2022-12-24 05:37] LABS: Anion Gap 14 (12-20); Blood Urea Nitrogen 29 mg/dL (9-16); Calcium 8.7 mg/dL (8.4-10.2); Carbon Dioxide 25 mmol/L (22-29); Chloride 102 mmol/L (96-108); Creatinine Clr Calc Pharmacy 68.1; Estimated Glomerular Filt Rate > 60; Glucose Random 202 mg/dL (60-115); Potassium 4.5 mmol/L (3.3-5.1); Sodium 136 mmol/L (135-145)
[2022-12-24] MEDS: Albuterol/Iprat 2.5/0.5MG 3 ML AMPUL.NEB INHALE ×3 (07:57→20:58)
[2022-12-24] MEDS: predniSONE 20 MG TABLET 40 MG PO (08:45)
[2022-12-24] MEDS: Metoprolol Succinate ER 25 MG TAB.ER.24H 75 MG PO (08:45)
[2022-12-24] MEDS: Benzonatate 100 MG CAPSULE PO ×3 (08:45→20:50)
--- NOTE | 2022-12-24 12:38 | HO.PM.IMPN ---
Subjective Subjective Date of Service: 12/24/22 Interval History: sepsis, pneumonia, anemia Review of Systems no sob, no fever or cough Physical Exam Vital Signs: Vital Signs: Last Vital Signs Temp 97.3 F 12/24/22 07:04 Pulse 70 12/24/22 11:11 Resp 18 12/24/22 11:11 BP 106/59 L 12/24/22 07:04 Pulse Ox 90 L 12/24/22 07:04 O2 Del Method Nasal Cannula 12/24/22 07:04 O2 Flow Rate 2 12/24/22 07:04 Oxygen Flow Rate 1 12/22/22 07:23 BMI result Body Mass Index 29.5 General: AO X 3, no acute distress Resp:? CTA bilateral CVS: S1,S2,RRR GI: +BS, NT, no distention Skin: No rash Neuro:? motor grossly intact Psych: appropriate affect Objective Data Active Medications Acetaminophen (Acetaminophen 325 Mg Tablet) 650 mg PO Q6H PRN PRN Reason: Pain, Mild (Pain Scale 1-3) Albuterol Sulfate (Albuterol Sulfate 90 Mcg 8 Gm Inhaler) 2 puff INHALE Q4H PRN PRN Reason: Shortness of Breath/Wheezing Albuterol/Ipratropium (Albuterol/Iprat 2.5/0.5mg 3 Ml Ampul.Neb) 3 ml INHALE RQ4H WHILE AWAKE [facility] Last Admin: 12/24/22 11:10 Dose: 3 ml Documented By: REJI Benzonatate (Benzonatate 100 Mg Capsule) 100 mg PO TID [facility] Last Admin: 12/24/22 08:45 Dose: 100 mg Documented By: ENRIQUE Docusate Sodium (Docusate Sodium 100 Mg Capsule) 100 mg PO DAILY PRN PRN Reason: Constipation Fluticasone Propionate (Fluticasone Propionate 100 Mcg Blst.W.Dev) 1 puff INHALE RBID [facility] Last Admin: 12/24/22 08:23 Dose: Not Given Documented By: REJI Non-Admin Reason: Med Not Available Guaifenesin/Codeine Phosphate (Guaifen/Codeine Sf 200/20/10ml 10 Ml Liquid) 5 ml PO Q6H PRN PRN Reason: Cough Last Admin: 12/24/22 04:55 Dose: 5 ml Documented By: FATOU Doxycycline Hyclate 100 mg/ (Sodium Chloride) 250 mls @ 166.67 mls/hr IV Q12H [facility] Last Infusion: 12/24/22 03:42 Dose: 0 mls/hr Documented By: FATOU Ceftriaxone Sodium 1 gm/ (Sodium Chloride) 50 mls @ 100 mls/hr IV Q24H [facility] Last Infusion: 12/24/22 09:29 Dose: 0 mls/hr Documented By: ENRIQUE Metoprolol Succinate (Metoprolol Succinate Er 25 Mg Tab.Er.24h) 75 mg PO DAILY [facility]; Protocol Last Admin: 12/24/22 08:45 Dose: 75 mg Documented By: ENRIQUE Omeprazole (Omeprazole 40 Mg Capsule.Dr) 40 mg PO BID@0630,1630 [facility] Ondansetron HCl (Ondansetron Hcl 4 Mg/2 Ml Vial) 4 mg IVPUSH Q8H PRN PRN Reason: Nausea and Vomiting Pharmacy Consult (Consult Rx Perform Med Rec) 1 each MISCELLANE ONCE PRN PRN Reason: Consult order Prednisone (Prednisone 20 Mg Tablet) 40 mg PO DAILY [facility] Last Admin: 12/24/22 08:45 Dose: 40 mg Documented By: ENRIQUE Sodium Chloride (0.9 % Sodium Chloride Flush 3 Ml Syringe) 3 ml IVFLUSH QSHIFT [facility] Last Admin: 12/24/22 08:45 Dose: 3 ml Documented By: ENRIQUE Labs 12/24/22 04:57 12/24/22 04:57 Labs: Laboratory Results - last 24 hr 12/23/22 12/24/22 12/24/22 Unknown 04:57 04:57 MCV 66.0 L MCH 18.1 L MCHC 27.4 L RDW 25.1 H Plt Count 568 H MPV 8.5 L Absolute Nucleated RBC 0.050 H Nucleated RBC % (auto) 0.3 H Anion Gap 14 Estim Creat Clear Calc 68.1 Estimated GFR > 60 Random Glucose 202 H Calcium 8.7 Urine Opiates Screen POSITIVE H Urine Fentanyl Screen Not Detected Ur Barbiturates Screen Not Detected Ur Phencyclidine Scrn Not Detected Ur Amphetamines Screen Not Detected U Benzodiazepines Scrn Not Detected Urine Cocaine Screen POSITIVE H U Marijuana (THC) Screen Not Detected Microbiology Microbiology Results: Microbiology 12/22/22 08:17 Blood Culture - Preliminary Blood - Venous No growth after 48 hours. 12/22/22 08:17 Blood Culture - Preliminary Blood - Venous No growth after 48 hours. Assessment and Plan (1) Lung mass: Status: Acute (2) Cough: Status: Acute (3) Asthma: Status: Acute (4) Anemia: Status: Acute (5) Pneumonia: Status: Acute Assessment and Plan: ? 12/22/22 12/23/22 12/23/22 ? 18:21 06:09 06:09 MCV ?63.2 L ?62.7 L ? MCH ?18.0 L ?17.7 L ? MCHC ?28.4 L ?28.2 L ? RDW ?23.9 H ?24.1 H ? Plt Count ?483 H ?483 H ? MPV ?8.5 L ?9.0 L ? Immature Gran % (Auto) ?1.0 H ?1.0 H ? Neut % (Auto) ?95.3 H ?93.8 H ? Lymph % (Auto) ?2.6 L ?3.7 L ? [place] % (Auto) ?0.9 L ?1.3 L ? Eos % (Auto) ?0.1 ?0.0 ? Baso % (Auto) ?0.1 ?0.2 ? Lymph # (Auto) ?0.5 L ?0.5 L ? [place] # (Auto) ?0.2 ?0.2 ? Eos # (Auto) ?0.0 ?0.0 ? Baso # (Auto) ?0.0 ?0.0 ? Abs Immat Gran (auto) ?0.17 H ?0.12 H ? Absolute Neuts (auto) ?16.7 H ?11.6 H ? Absolute Nucleated RBC ?0.000 ?0.000 ? Nucleated RBC % (auto) ?0.0 ?0.0 ? Smear Tech's Comments ? ?VERIFIED ? Anion Gap ? ? ?14 Estim Creat Clear Calc ? ? ?79.0 Estimated GFR ? ? ?> 60 Random Glucose ? ? ?210 H Lactic Acid ? ? ? Calcium ? ? ?8.5 Iron ? ? ? TIBC ? ? ? % Saturation ? ? ? Unsat Iron Binding ? ? ? Ferritin ? ? ? Total Bilirubin ? ? ?0.5 Direct Bilirubin ? ? ? AST ? ? ?41 H ALT ? ? ?70 H Alkaline Phosphatase ? ? ?174 H Total Creatine Kinase ? ? ? Troponin I High Sens ? ? ? B-Natriuretic Peptide ? ? ? Total Protein ? ? ?5.9 L Albumin ? ? ?2.7 L Lipase ? ? ? Urine Color ? ? ? Urine Appearance ? ? ? Urine pH ? ? ? Ur Specific [place] ? ? ? Urine Protein ? ? ? Urine Glucose (UA) ? ? ? Urine Ketones ? ? ? Urine Blood ? ? ? Urine Nitrite ? ? ? Ur Leukocyte Esterase ? ? ? Urine RBC ? ? ? Urine WBC ? ? ? Ur Squamous Epith Cells ? ? ? Urine Bacteria ? ? ? Hyaline Casts ? ? ? Stool Occult Blood ? ? ? Urine Opiates Screen ? ? ? Urine Fentanyl Screen ? ? ? Ur Barbiturates Screen ? ? ? Ur Phencyclidine Scrn ? ? ? Ur Amphetamines Screen ? ? ? U Benzodiazepines Scrn ? ? ? Urine Cocaine Screen ? ? ? U Marijuana (THC) Screen ? ? ? Influenza Type A (PCR) ? ? ? Influenza Type B (PCR) ? ? ? RSV RNA Qual (PCR) ? ? ? SARS-CoV-2 RNA (RT-PCR) ? ? ? Blood Type ? ? ? Antibody Screen ? ? ? Crossmatch ? ? ? Plan 72-year-old male with history of unspecified congestive heart failure, hypertension, paroxysmal atrial fibrillation not on anticoagulation, and mild persistent asthma admitted for acute pneumonia with sepsis and acute hypoxemic respiratory failure. Sepsis d/t pneumonia POA, clinically responding to treatment. WBC down, fever,tachycardia amd tachypneic resolved, no longer septic --Sputum culture, strep pneumo ag, legionella ag pending -continue -IV ceftriaxone and doxycycline (initiated 12/22) Lung massess on CT showing multiple lung masses--concern for malignanct -pulmonology consult ? need for bronch or bx- workup outpatient. Acute hypoxemic respiratory failure--d/t above -Continue supplemeental O2 to maintain oximetry >92% Mild persistent asthma- with acute exacerbation -IV methylprednisolone 40mg BID--change to Prednisone tomorrow -Duonebs q4h while awake -albuterol prn -Continue flovent BID Recurrent syncope with collapse and generalized weakness, likely related to coughing fit BRBPR, Acute blood loss anemia( onch microcytic anemia) s/p 1 unit of RBC h/h 7.5/27.5 anemia workup -christine iron def. -Stool occult positive -GI consult pending Cocaine abuse -pt denies use, but utox positive for cocaine -addiction medicine consult Paroxysmal atrial fibrillation- rate controlled -not on anticoagulation -continue metoprolol Unspecified CHF, compensated, continue oral Lasix HTN--continue home meds DVT prophylaxis- lovenox (dc if anemia worsening) Full code Need for inpatient: Treatment for sepsis, penumonia- need antibiotics,anemia work up- fobt positive ,may need further Gi workup. Time Spent With Patient Time: Total time managing care of this patient today ____ minutes. Quality Stroke Does the patient have a stroke diagnosis?: No VTE Prior VTE?: No VTE Risk Level:: Medical - moderate - high VTE Device Contraindication: Treatment Not Tolerated VTE Drug Contraindication: N/A - Med Ordered
[2022-12-24] MEDS: Acetaminophen 325 MG TABLET 650 MG PO (20:49)
[2022-12-25] VITALS (8 sets, daily range): BP systolic 139–147; BP diastolic 60–66; PULSE 70–83; RESP 18–20; TEMP 36.2–36.5; O2SAT 89–96
[2022-12-25 03:59] LABS: HIV AB/AG Nonreactive (Nonreactive); HIV Num 1 0.06 S/CO (0.00-0.99)
[2022-12-25] MEDS: Albuterol/Iprat 2.5/0.5MG 3 ML AMPUL.NEB INHALE ×4 (07:46→20:48)
[2022-12-25] MEDS: Metoprolol Succinate ER 25 MG TAB.ER.24H 75 MG PO (09:27)
[2022-12-25] MEDS: Acetaminophen 325 MG TABLET 650 MG PO (09:27)
[2022-12-25] MEDS: predniSONE 20 MG TABLET 40 MG PO (09:27)
[2022-12-25] MEDS: Benzonatate 100 MG CAPSULE PO ×3 (09:27→21:48)
[2022-12-25] MEDS: guaiFEN/Codeine SF 200/20/10ML 10 ML LIQUID 5 ML PO ×2 (09:27→21:48)
--- NOTE | 2022-12-25 13:29 | MHC.CLN ---
NUTRITION CONSULT FOR SKIN INTEGRITY. REDNESS TO SCROTUM AND BILATERAL BUTTOCKS. DIET=CARDIAC. INTAKE AT MEALS USUALLY VERY GOOD. NO NEW NUTRITION INTERVENTIONS AT THIS TIME.
--- NOTE | 2022-12-25 13:30 | HO.PM.IMPN ---
Subjective Subjective Date of Service: 12/25/22 Interval History: sepsis, pneumonia, anemia Review of Systems no sob, no fever or cough Physical Exam Vital Signs: Vital Signs: Last Vital Signs Temp 97.7 F 12/25/22 07:12 Pulse 83 12/25/22 11:32 Resp 20 12/25/22 11:32 BP 140/66 H 12/25/22 07:12 Pulse Ox 90 L 12/25/22 07:12 O2 Del Method Nasal Cannula 12/25/22 07:12 O2 Flow Rate 2 12/25/22 04:00 Oxygen Flow Rate 1 12/22/22 07:23 BMI result Body Mass Index 29.5 General: AO X 3, no acute distress Resp:? CTA bilateral CVS: S1,S2,RRR GI: +BS, NT, no distention Skin: No rash Neuro:? motor grossly intact Psych: appropriate affect Objective Data Active Medications Acetaminophen (Acetaminophen 325 Mg Tablet) 650 mg PO Q6H PRN PRN Reason: Pain, Mild (Pain Scale 1-3) Last Admin: 12/25/22 09:27 Dose: 650 mg Documented By: ANDREA Albuterol Sulfate (Albuterol Sulfate 90 Mcg 8 Gm Inhaler) 2 puff INHALE Q4H PRN PRN Reason: Shortness of Breath/Wheezing Albuterol/Ipratropium (Albuterol/Iprat 2.5/0.5mg 3 Ml Ampul.Neb) 3 ml INHALE RQ4H WHILE AWAKE [facility] Last Admin: 12/25/22 11:32 Dose: 3 ml Documented By: SAMY Benzonatate (Benzonatate 100 Mg Capsule) 100 mg PO TID [facility] Last Admin: 12/25/22 09:27 Dose: 100 mg Documented By: ANDREA Docusate Sodium (Docusate Sodium 100 Mg Capsule) 100 mg PO DAILY PRN PRN Reason: Constipation Fluticasone Propionate (Fluticasone Propionate 100 Mcg Blst.W.Dev) 1 puff INHALE RBID [facility] Last Admin: 12/25/22 07:46 Dose: 1 puff Documented By: SAMY Guaifenesin/Codeine Phosphate (Guaifen/Codeine Sf 200/20/10ml 10 Ml Liquid) 5 ml PO Q6H PRN PRN Reason: Cough Last Admin: 12/25/22 09:27 Dose: 5 ml Documented By: ANDREA Doxycycline Hyclate 100 mg/ (Sodium Chloride) 250 mls @ 166.67 mls/hr IV Q12H [facility] Last Infusion: 12/25/22 05:18 Dose: 0 mls/hr Documented By: JUVENAL-MARIANNAZEZach Ceftriaxone Sodium 1 gm/ (Sodium Chloride) 50 mls @ 100 mls/hr IV Q24H [facility] Last Infusion: 12/25/22 10:29 Dose: 0 mls/hr Documented By: ANDREA Metoprolol Succinate (Metoprolol Succinate Er 25 Mg Tab.Er.24h) 75 mg PO DAILY [facility]; Protocol Last Admin: 12/25/22 09:27 Dose: 75 mg Documented By: ANDREA Omeprazole (Omeprazole 40 Mg Capsule.Dr) 40 mg PO BID@0630,1630 [facility] Last Admin: 12/25/22 05:56 Dose: Not Given Documented By: JUVENAL-MICHAEL Non-Admin Reason: Patient Refused Ondansetron HCl (Ondansetron Hcl 4 Mg/2 Ml Vial) 4 mg IVPUSH Q8H PRN PRN Reason: Nausea and Vomiting Pharmacy Consult (Consult Rx Perform Med Rec) 1 each MISCELLANE ONCE PRN PRN Reason: Consult order Prednisone (Prednisone 20 Mg Tablet) 40 mg PO DAILY [facility] Last Admin: 12/25/22 09:27 Dose: 40 mg Documented By: ANDREA Sodium Chloride (0.9 % Sodium Chloride Flush 3 Ml Syringe) 3 ml IVFLUSH QSHIFT [facility] Last Admin: 12/25/22 09:29 Dose: 3 ml Documented By: ANDREA Labs 12/24/22 04:57 12/24/22 04:57 Labs: Laboratory Results - last 24 hr 12/23/22 13:43 HIV 1&2 Ab/P24 Ag 4thGn Nonreactive Microbiology Microbiology Results: Microbiology 12/22/22 08:17 Blood Culture - Preliminary Blood - Venous No growth after 48 hours. 12/22/22 08:17 Blood Culture - Preliminary Blood - Venous No growth after 48 hours. Assessment and Plan (1) Lung mass: Status: Acute (2) Cough: Status: Acute (3) Asthma: Status: Acute (4) Anemia: Status: Acute (5) Pneumonia: Status: Acute Assessment and Plan: ? 12/22/22 12/23/22 12/23/22 ? 18:21 06:09 06:09 MCV ?63.2 L ?62.7 L ? MCH ?18.0 L ?17.7 L ? MCHC ?28.4 L ?28.2 L ? RDW ?23.9 H ?24.1 H ? Plt Count ?483 H ?483 H ? MPV ?8.5 L ?9.0 L ? Immature Gran % (Auto) ?1.0 H ?1.0 H ? Neut % (Auto) ?95.3 H ?93.8 H ? Lymph % (Auto) ?2.6 L ?3.7 L ? [place] % (Auto) ?0.9 L ?1.3 L ? Eos % (Auto) ?0.1 ?0.0 ? Baso % (Auto) ?0.1 ?0.2 ? Lymph # (Auto) ?0.5 L ?0.5 L ? [place] # (Auto) ?0.2 ?0.2 ? Eos # (Auto) ?0.0 ?0.0 ? Baso # (Auto) ?0.0 ?0.0 ? Abs Immat Gran (auto) ?0.17 H ?0.12 H ? Absolute Neuts (auto) ?16.7 H ?11.6 H ? Absolute Nucleated RBC ?0.000 ?0.000 ? Nucleated RBC % (auto) ?0.0 ?0.0 ? Smear Tech's Comments ? ?VERIFIED ? Anion Gap ? ? ?14 Estim Creat Clear Calc ? ? ?79.0 Estimated GFR ? ? ?> 60 Random Glucose ? ? ?210 H Lactic Acid ? ? ? Calcium ? ? ?8.5 Iron ? ? ? TIBC ? ? ? % Saturation ? ? ? Unsat Iron Binding ? ? ? Ferritin ? ? ? Total Bilirubin ? ? ?0.5 Direct Bilirubin ? ? ? AST ? ? ?41 H ALT ? ? ?70 H Alkaline Phosphatase ? ? ?174 H Total Creatine Kinase ? ? ? Troponin I High Sens ? ? ? B-Natriuretic Peptide ? ? ? Total Protein ? ? ?5.9 L Albumin ? ? ?2.7 L Lipase ? ? ? Urine Color ? ? ? Urine Appearance ? ? ? Urine pH ? ? ? Ur Specific [place] ? ? ? Urine Protein ? ? ? Urine Glucose (UA) ? ? ? Urine Ketones ? ? ? Urine Blood ? ? ? Urine Nitrite ? ? ? Ur Leukocyte Esterase ? ? ? Urine RBC ? ? ? Urine WBC ? ? ? Ur Squamous Epith Cells ? ? ? Urine Bacteria ? ? ? Hyaline Casts ? ? ? Stool Occult Blood ? ? ? Urine Opiates Screen ? ? ? Urine Fentanyl Screen ? ? ? Ur Barbiturates Screen ? ? ? Ur Phencyclidine Scrn ? ? ? Ur Amphetamines Screen ? ? ? U Benzodiazepines Scrn ? ? ? Urine Cocaine Screen ? ? ? U Marijuana (THC) Screen ? ? ? Influenza Type A (PCR) ? ? ? Influenza Type B (PCR) ? ? ? RSV RNA Qual (PCR) ? ? ? SARS-CoV-2 RNA (RT-PCR) ? ? ? Blood Type ? ? ? Antibody Screen ? ? ? Crossmatch ? ? ? Plan 72-year-old male with history of unspecified congestive heart failure, hypertension, paroxysmal atrial fibrillation not on anticoagulation, and mild persistent asthma admitted for acute pneumonia with sepsis and acute hypoxemic respiratory failure. Sepsis d/t pneumonia POA, clinically responding to treatment. WBC down, fever,tachycardia amd tachypneic resolved, no longer septic --Sputum culture, strep pneumo ag, legionella ag pending -continue -IV ceftriaxone and doxycycline (initiated 12/22) Lung massess on CT showing multiple lung masses--concern for malignanct -pulmonology consult ? need for bronch or bx- workup outpatient. Acute hypoxemic respiratory failure--d/t above -Continue supplemeental O2 to maintain oximetry >92% Mild persistent asthma- with acute exacerbation -IV methylprednisolone 40mg BID--change to Prednisone tomorrow -Duonebs q4h while awake -albuterol prn -Continue flovent BID Recurrent syncope with collapse and generalized weakness, likely related to coughing fit BRBPR, Acute blood loss anemia( onch microcytic anemia) s/p 1 unit of RBC h/h 7.5/27.5 anemia workup -christine iron def. -Stool occult positive -GI consult pending Cocaine abuse -pt denies use, but utox positive for cocaine -addiction medicine consult Paroxysmal atrial fibrillation- rate controlled -not on anticoagulation -continue metoprolol Unspecified CHF, compensated, continue oral Lasix HTN--continue home meds DVT prophylaxis- lovenox (dc if anemia worsening) Full code Need for inpatient: Treatment for sepsis, penumonia- need antibiotics,anemia work up- fobt positive ,may need further Gi workup. Time Spent With Patient Time: Total time managing care of this patient today ____ minutes. Quality Stroke Does the patient have a stroke diagnosis?: No VTE Prior VTE?: No VTE Risk Level:: Medical - moderate - high VTE Device Contraindication: Treatment Not Tolerated VTE Drug Contraindication: N/A - Med Ordered
--- NOTE | 2022-12-25 15:43 | PM.EVENT ---
Event Note Date of Service: 12/25/22 Event Note: GI consult dictated Anemia with heme pos stools EGD/colon 09/04 showed benign gastric ulcer and esophagitis as well as colonic diverticulosis. No signs of GI malignancy Agree with empiric ppi, start iron, if no improvement with oral, may need iv. Time Spent With Patient Time: Total time managing care of this patient today ____ minutes.
[2022-12-25] MEDS: Ferrous Sulfate 324 MG TABLET.DR PO (16:12)
[2022-12-25] MEDS: Omeprazole 40 MG CAPSULE.DR PO (16:12)
[2022-12-25 16:28] LABS: Immunoglobulin G 868 mg/dL (600-1540)
--- NOTE | 2022-12-25 22:23 | CONS_ITS ---
DATE OF SERVICE: 12/25/2022 REFERRING PHYSICIAN: JONAS Bui REASON FOR CONSULTATION: Anemia and Hemoccult-positive stools. HISTORY OF PRESENT ILLNESS: The patient is a pleasant 72-year-old man who was admitted to the hospital on December 22, after presenting to the emergency room with syncope, cough, and shortness of breath. He was noted on admission to be anemic with a hematocrit of 25.7, which was down from 29.9 in August 2021, he received 1 unit of packed red blood cells and his hematocrit has stabilized around 27. There has been no reported rectal bleeding since admission, although he states he has occasional hematochezia at home. He was hospitalized in August 2021 also with anemia and underwent upper endoscopy and colonoscopy with the finding of a benign gastric ulcer which was treated with a proton pump inhibitor. The patient took this for some period of time at home, although apparently stopped as he said when he came into the hospital, he was taking no medications. Biopsies from his upper endoscopy showed inflammation and no H pylori. Biopsies from the EG junction also showed inflammation, but no H pylori. Colonoscopy was remarkable for diverticulosis and internal hemorrhoids, but no polyps. His evaluation in the emergency room also disclosed lung lesions on CT imaging concerning for underlying malignancy and he is currently under evaluation for this. Tox screen on admission was positive for cocaine for which the patient has declined evaluation. PAST MEDICAL HISTORY: 1. Congestive heart failure. 2. Hypertension. 3. Atrial fibrillation. 4. Asthma. 5. Lung masses as above. CURRENT MEDICATIONS: His current medication list is reviewed in the chart. ALLERGIES: THERE ARE NONE REPORTED. FAMILY HISTORY: This is reviewed in electronic medical record. SOCIAL HISTORY: The patient denies tobacco and alcohol use. Cocaine use is as above. REVIEW OF SYSTEMS: SKIN: No pruritus. HEENT: Negative. CARDIOPULMONARY: No shortness of breath or chest pain. GASTROINTESTINAL: As above. GENITOURINARY: Negative. NEUROPSYCHIATRIC: Negative. PHYSICAL EXAMINATION: GENERAL: Shows a pleasant male, lying in bed, watching television. VITAL SIGNS: Reviewed in electronic medical record and are stable. Skin is anicteric. HEENT: Shows no scleral icterus. NECK: Without lymphadenopathy or thyromegaly. LUNGS: Clear. HEART: Regular rate and rhythm. S1, S2. No murmur. ABDOMEN: Soft without focal masses or tenderness. Bowel sounds are present. No organomegaly is noted. EXTREMITIES: Without edema. LABORATORY DATA: Reviewed as are CT scan reports. Iron saturation is low at 5. IMPRESSION: Iron-deficiency anemia with Hemoccult-positive stools. At this time, he does not appear to have any active GI bleeding issues. I agree with treating him empirically with a proton pump inhibitor because of his history of gastric ulcer. At the time of his last endoscopy, this was benign with biopsy showing no evidence of malignancy, his iron saturation is low consistent with iron deficiency and this will need to be repleted. If he does not respond to oral iron supplementation, then IV iron could be considered. Based on his endoscopic findings at his endoscopy in August of last year, I do not think he needs repeat endoscopy or colonoscopy at this time. Thanks for asking me to see him. I will follow him in the hospital with you. MD HARSHIL Del Real/OLIVIA / [phone]
[2022-12-26] VITALS (9 sets, daily range): BP systolic 147–165; BP diastolic 68–83; PULSE 65–84; RESP 16–20; TEMP 36.3–36.5; O2SAT 89–99
[2022-12-26] MEDS: Albuterol/Iprat 2.5/0.5MG 3 ML AMPUL.NEB INHALE ×5 (05:31→20:11)
[2022-12-26] MEDS: Omeprazole 40 MG CAPSULE.DR PO ×2 (05:59→15:30)
[2022-12-26 08:10] LABS: Hematocrit 28.1 % (42.0-52.0); Hemoglobin 7.6 g/dl (14.0-18.0); Mean Corpuscular Hemoglobin 18.6 pg (27.0-33.0); Mean Corpuscular Volume 68.7 fL (80.0-98.0); Mean Platelet Volume 8.3 fL (9.4-12.4); NRBC Pct Auto 0.2 /100WBC (0.0-0.2); Platelet Count 435 X10*3/uL (160-400); Red Blood Count 4.09 X10*6/uL (4.60-5.80); Red Cell Distribution Width 26.2 % (11.0-16.0); White Blood Count 10.2 X10*3/uL (4.8-10.8)
[2022-12-26] MEDS: Metoprolol Succinate ER 25 MG TAB.ER.24H 75 MG PO (09:08)
[2022-12-26] MEDS: Benzonatate 100 MG CAPSULE PO ×3 (09:09→20:32)
[2022-12-26] MEDS: predniSONE 20 MG TABLET 40 MG PO (09:09)
[2022-12-26] MEDS: Ferrous Sulfate 324 MG TABLET.DR PO (09:09)
[2022-12-26] MEDS: Magnesium Sulfate/H2O 2 GM/50 ML PIGGYBACK IV (09:10)
--- NOTE | 2022-12-26 09:43 | PC.NURSE ---
PVR 191cc
[2022-12-26 09:57] LABS: Venous Blood Gas Refer to POC result
[2022-12-26 11:18] LABS: VBG Base Excess 9.3 mmol/L; VBG HCO3 34 mmol/L (22-26); VBG pCO2 49 mmHg; VBG pH 7.44 (7.32-7.43); VBG pO2 207 mmHg
[2022-12-26 11:33] LABS: Cyclic Citrullinated Peptide <16 UNITS
--- NOTE | 2022-12-26 12:20 | MHC.CM.PN ---
PER MD ROUNDS, PT NOT YET READY TO DC STR HAS BEEN RECOMMENDED [facility] ACCEPTING UPDATES SENT
[2022-12-26 12:29] LABS: Immunoglobulin E 406 kU/L (<OR=114)
--- NOTE | 2022-12-26 13:09 | PC.NURSE ---
PVR 36cc
[2022-12-27] VITALS (7 sets, daily range): BP systolic 137–177; BP diastolic 67–71; PULSE 59–74; RESP 20–22; TEMP 36.1–36.6; O2SAT 95–98
[2022-12-27] MEDS: Albuterol/Iprat 2.5/0.5MG 3 ML AMPUL.NEB INHALE ×4 (02:29→15:10)
[2022-12-27] MEDS: Omeprazole 40 MG CAPSULE.DR PO (05:57)
--- NOTE | 2022-12-27 06:31 | PC.NURSE ---
PVR AT 0630 IS 190 ML PT gets up to Br. very frequently
[2022-12-27] MEDS: Benzonatate 100 MG CAPSULE PO ×2 (07:51→15:22)
[2022-12-27] MEDS: Ferrous Sulfate 324 MG TABLET.DR PO (07:51)
[2022-12-27] MEDS: Metoprolol Succinate ER 25 MG TAB.ER.24H 75 MG PO (07:51)
[2022-12-27] MEDS: predniSONE 20 MG TABLET 40 MG PO (07:51)
[2022-12-27 08:13] LABS: Hematocrit 28.1 % (42.0-52.0); Hemoglobin 7.5 g/dl (14.0-18.0)
[2022-12-27] MEDS: guaiFEN/Codeine SF 200/20/10ML 10 ML LIQUID 5 ML PO (08:24)
[2022-12-27] MEDS: Loratadine 10 MG TABLET PO (10:27)
--- NOTE | 2022-12-27 11:37 | P.PNIM_ITS ---
Subjective Subjective Date of Service: 12/28/22 Interval History: anemia ,pneumonia Review of Systems has some cough uncooperative -does not answer questions Physical Exam Vital Signs: Vital Signs: Last Vital Signs Temp 97.9 F 12/27/22 07:34 Pulse 72 12/27/22 07:37 Resp 20 12/27/22 07:37 BP 137/67 12/27/22 07:34 Pulse Ox 97 12/27/22 07:34 O2 Del Method Nasal Cannula 12/27/22 07:34 O2 Flow Rate 2 12/27/22 07:34 Oxygen Flow Rate 1 12/22/22 07:23 BMI result Body Mass Index 29.5 refused physicalexam sats seems fine ,does not seems to be in discomfort. Objective Data Active Medications Acetaminophen (Acetaminophen 325 Mg Tablet) 650 mg PO Q6H PRN PRN Reason: Pain, Mild (Pain Scale 1-3) Last Admin: 12/25/22 09:27 Dose: 650 mg Documented By: ANDREA Albuterol Sulfate (Albuterol Sulfate 90 Mcg 8 Gm Inhaler) 2 puff INHALE Q4H PRN PRN Reason: Shortness of Breath/Wheezing Albuterol/Ipratropium (Albuterol/Iprat 2.5/0.5mg 3 Ml Ampul.Neb) 3 ml INHALE RQ4H WHILE AWAKE [facility] Last Admin: 12/27/22 07:37 Dose: 3 ml Documented By: BASSEM Albuterol/Ipratropium (Albuterol/Iprat 2.5/0.5mg 3 Ml Ampul.Neb) 3 ml INHALE RQ4H PRN PRN Reason: Shortness of Breath/Wheezing Last Admin: 12/27/22 02:29 Dose: 3 ml Documented By: NORA Benzonatate (Benzonatate 100 Mg Capsule) 100 mg PO TID [facility] Last Admin: 12/27/22 07:51 Dose: 100 mg Documented By: MALACHI Docusate Sodium (Docusate Sodium 100 Mg Capsule) 100 mg PO DAILY PRN PRN Reason: Constipation Ferrous Sulfate (Ferrous Sulfate 324 Mg Tablet.Dr) 324 mg PO DAILY [facility] Last Admin: 12/27/22 07:51 Dose: 324 mg Documented By: MALACHI Fluticasone Propionate (Fluticasone Propionate 100 Mcg Blst.W.Dev) 1 puff INHALE RBID [facility] Last Admin: 12/27/22 07:36 Dose: 1 puff Documented By: BASSEM Guaifenesin (Guaifenesin 100 Mg/5 Ml Liquid) 10 ml PO Q4H PRN PRN Reason: Cough Guaifenesin/Codeine Phosphate (Guaifen/Codeine Sf 200/20/10ml 10 Ml Liquid) 5 ml PO Q6H PRN PRN Reason: Cough Last Admin: 12/27/22 08:24 Dose: 5 ml Documented By: MALACHI Doxycycline Hyclate 100 mg/ (Sodium Chloride) 250 mls @ 166.67 mls/hr IV Q12H [facility] Last Infusion: 12/27/22 05:00 Dose: 166.67 mls/hr Documented By: HELENA Ceftriaxone Sodium 1 gm/ (Sodium Chloride) 50 mls @ 100 mls/hr IV Q24H [facility] Last Infusion: 12/27/22 08:27 Dose: 0 mls/hr Documented By: MALACHI Loratadine (Loratadine 10 Mg Tablet) 10 mg PO DAILY [facility] Last Admin: 12/27/22 10:27 Dose: 10 mg Documented By: FADI Metoprolol Succinate (Metoprolol Succinate Er 25 Mg Tab.Er.24h) 75 mg PO DAILY [facility]; Protocol Last Admin: 12/27/22 07:51 Dose: 75 mg Documented By: MALACHI Omeprazole (Omeprazole 40 Mg Capsule.Dr) 40 mg PO BID@0630,1630 [facility] Last Admin: 12/27/22 05:57 Dose: 40 mg Documented By: HEELNA Ondansetron HCl (Ondansetron Hcl 4 Mg/2 Ml Vial) 4 mg IVPUSH Q8H PRN PRN Reason: Nausea and Vomiting Pharmacy Consult (Consult Rx Perform Med Rec) 1 each MISCELLANE ONCE PRN PRN Reason: Consult order Prednisone (Prednisone 20 Mg Tablet) 40 mg PO DAILY [facility] Last Admin: 12/27/22 07:51 Dose: 40 mg Documented By: MALACHI Sodium Chloride (0.9 % Sodium Chloride Flush 3 Ml Syringe) 3 ml IVFLUSH QSHIFT [facility] Last Admin: 12/27/22 07:52 Dose: 3 ml Documented By: MALACHI Labs 12/27/22 07:47 12/24/22 04:57 Labs: Laboratory Results - last 24 hr 12/23/22 13:43 IgE 406 H Microbiology Microbiology Results: Microbiology 12/22/22 08:17 Blood Culture - Final Blood - Venous No growth after 5 days. 12/22/22 08:17 Blood Culture - Final Blood - Venous No growth after 5 days. Assessment and Plan (1) Lung mass: Status: Acute (2) Cough: Status: Acute (3) Pneumonia: Status: Acute (4) Anemia: Status: Acute Plan 72-year-old male with history of unspecified congestive heart failure, hypertens ion, paroxysmal atrial fibrillation not on anticoagulation, and mild persistent asthma admitted for acute pneumonia with sepsis and acute hypoxemic respiratory failure. ?Sepsis d/t pneumonia POA, clinically responding to treatment.? WBC down, fever,tachycardia amd tachypneic resolved, no longer septic --Sputum culture, strep pneumo ag, legionella ag pending -continue -IV ceftriaxone and doxycycline (initiated 12/22) Lung massess on? CT showing multiple lung masses--concern for malignanct -pulmonology consult ? need for bronch or bx- workup outpatient. Acute hypoxemic respiratory failure--d/t above -Continue supplemeental O2 to maintain oximetry >92% Mild persistent asthma- with acute exacerbation -IV methylprednisolone 40mg BID--change to Prednisone tomorrow -Duonebs q4h while awake -albuterol prn -Continue flovent BID Recurrent syncope with collapse and generalized weakness, likely related to coughing fit BRBPR, Acute blood loss anemia( onch microcytic anemia) s/p 1 unit of RBC h/h 7.5/27.5 anemia workup -christine iron def. -Stool occult positive -GI consult pending Cocaine abuse -pt denies use, but utox positive for cocaine -addiction medicine consult Paroxysmal atrial fibrillation- rate controlled -not on anticoagulation -continue metoprolol Unspecified CHF, compensated, continue oral Lasix HTN--continue home meds ? mood dis -patient on/off non coopertaive , also capacity eval DVT prophylaxis- lovenox (dc if anemia worsening) Full code Need for inpatient: Treatment for sepsis, penumonia- need antibiotics,anemia work up- fobt positive ,may need further Gi workup. Time Spent With Patient Time: Total time managing care of this patient today ____ minutes. Quality Stroke Does the patient have a stroke diagnosis?: No VTE Prior VTE?: No VTE Risk Level:: Medical - moderate - high VTE Device Contraindication: Treatment Not Tolerated VTE Drug Contraindication: N/A - Med Ordered
--- NOTE | 2022-12-27 13:26 | P.CNPS_ITS ---
History of Present Illness Date of Service: 12/27/22 Chief Complaint: Pneumonia, sepsis, hypoxia Reason for Consult: capacity HPI Narrative: requested by pt with numerous medical problems, recently admitted for pneumonia requiring IV antibiotics with incidental finding of lung masses, likely cancer. what prompted the admission was his falling several times, which his not usual for him. in any case, his sepsis quickly abated with antibiotics and he was worked up for GI bleed as well and generally medically stabilized. psychiatry was consulted as pt appeared to have a labile and irritable mood which made it difficult for the medical team to interact with him, and they were thus unable to have a discussion with him re discharging to short term rehab. on interview with pt, he was seated on the edge of his bed, disheveled, dressed in a hospital [place]. he was rather hard of hearing and so interview was conducted very close and at loud volume. he was appropriately welcoming to MD, calm, and polite. he displayed several flashes of frustration/irritability when he was unable to recall information or when questions regarding substance use were asked, but was not as a rule irritable/angry. his was poorly oriented and short-term recall was poor, especially when he was not particularly motivated or the information had little emotional valence for him (such as the date, or day of the week). when capacity to make the medical decision of discharge to [facility] versus home was assessed, he displayed improved performance, being able to recall the risks/benefits of the various scenarios. he denied any and all mental health history and derailed any attempts to discuss substance use. Past Psychiatric History: denies any and all [facility] Medical History (Updated 12/27/22 @ 13:29 by Jaret Molina) Afib Asthma CHF (congestive heart failure) Cough GERD (gastroesophageal reflux disease) Lung mass Surgical History No pertinent past surgical history Substance History: cocaine POS utox. pt deflects any attempts to discuss substance use history. Diagnostics Vital Signs (24Hr): Vital Signs - 24 hr 12/26/22 15:36 12/26/22 15:50 12/26/22 20:13 Temperature 97.5 F Pulse Rate 76 70 70 Respiratory Rate 18 20 20 Blood Pressure 158/68 H Pulse Oximetry 92 Oxygen Delivery Method Nasal Cannula Oxygen Flow Rate 2 12/26/22 20:00 12/27/22 02:31 12/27/22 03:08 Temperature 97.4 F 96.9 F Pulse Rate 71 59 69 Respiratory Rate 20 20 20 Blood Pressure 147/83 H 177/71 H Pulse Oximetry 99 96 Oxygen Delivery Method Nasal Cannula Nasal Cannula Oxygen Flow Rate 2 2 12/27/22 07:34 12/27/22 07:37 12/27/22 11:56 Temperature 97.9 F Pulse Rate 65 72 74 Respiratory Rate 20 20 20 Blood Pressure 137/67 Pulse Oximetry 97 Oxygen Delivery Method Nasal Cannula Oxygen Flow Rate 2 BMI result Body Mass Index 29.5 Labs 12/27/22 07:47 12/24/22 04:57 Labs: Laboratory Results - last 48 hr 12/23/22 12/23/22 12/23/22 11:01 11:01 13:43 WBC RBC Hgb Hct MCV MCH MCHC RDW Plt Count MPV Absolute Nucleated RBC Nucleated RBC % (auto) VBG pH VBG pCO2 VBG pO2 VBG HCO3 VBG O2 Saturation VBG Base Excess IgG 868 IgE 406 H Cycl Citrul Peptide IgG <16 12/26/22 12/26/22 12/27/22 07:58 11:10 07:47 WBC 10.2 RBC 4.09 L Hgb 7.6 L 7.5 L Hct 28.1 L 28.1 L MCV 68.7 L MCH 18.6 L MCHC 27.0 L RDW 26.2 H Plt Count 435 H MPV 8.3 L Absolute Nucleated RBC 0.020 H Nucleated RBC % (auto) 0.2 VBG pH 7.44 H VBG pCO2 49 VBG pO2 207 VBG HCO3 34 H VBG O2 Saturation 100.0 VBG Base Excess 9.3 IgG IgE Cycl Citrul Peptide IgG Imaging Radiology Impressions: ITS Impressions Chest X-Ray 12/22/22 07:49 IMPRESSION: * The current radiographic findings are similar compared to 09/01/2021. * There appears to be chronic thickening of the bronchial geiger, mild atelectasis at the right lateral lung base and atelectasis or airspace disease in the medial left lung base. Bronchitis or pneumonia would have to be excluded on the basis of clinical criteria. Knee X-Ray 12/22/22 07:49 IMPRESSION: Soft tissue swelling medially possibly bursal without effusion. No definite fracture. Advanced degenerative changes especially medial femoral joint compartment loose body. This is possibly on the basis of an old osteochondral injury medial femoral condyle. Head CT 12/22/22 09:09 IMPRESSION: No acute intracranial process seen Abdomen Ultrasound 12/22/22 10:14 IMPRESSION: Mild hepatomegaly with lobulated contour. No focal lesion seen. 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 Unremarkable CBD, right kidney and the visualized pancreas. Abdomen/Pelvis CT 12/22/22 13:12 IMPRESSION: 1. Multiple lung masses and consolidations with central lucency . 2. Small bilateral pleural effusion. 3. Cardiomegaly. 4. Prostatomegaly.. 5. Limited evaluation of mediastinum due to noncontrast technique. Chest CT 12/22/22 13:12 IMPRESSION: 1. Multiple lung masses and consolidations with central lucency . 2. Small bilateral pleural effusion. 3. Cardiomegaly. 4. Prostatomegaly.. 5. Limited evaluation of mediastinum due to noncontrast technique. Mental Status Exam Mental Status Exam Narrative: disheveled elderly man seated no the edge of his bed. cooperative. no PMA/PMR. speech nml rate, loudness, amount, tone, latency. thoughts circumstantial to tangential. affect constricted, somewhat hyper-intense, min-labile. mood fine. denies SI/SIBI/HI/AVH. Medications Medications Current Medications Acetaminophen (Acetaminophen 325 Mg Tablet) 650 mg PO Q6H PRN PRN Reason: Pain, Mild (Pain Scale 1-3) Last Admin: 12/25/22 09:27 Dose: 650 mg Albuterol Sulfate (Albuterol Sulfate 90 Mcg 8 Gm Inhaler) 2 puff INHALE Q4H PRN PRN Reason: Shortness of Breath/Wheezing Albuterol/Ipratropium (Albuterol/Iprat 2.5/0.5mg 3 Ml Ampul.Neb) 3 ml INHALE RQ4H WHILE AWAKE [facility] Last Admin: 12/27/22 11:55 Dose: 3 ml Albuterol/Ipratropium (Albuterol/Iprat 2.5/0.5mg 3 Ml Ampul.Neb) 3 ml INHALE RQ4H PRN PRN Reason: Shortness of Breath/Wheezing Last Admin: 12/27/22 02:29 Dose: 3 ml Benzonatate (Benzonatate 100 Mg Capsule) 100 mg PO TID [facility] Last Admin: 12/27/22 07:51 Dose: 100 mg Docusate Sodium (Docusate Sodium 100 Mg Capsule) 100 mg PO DAILY PRN PRN Reason: Constipation Ferrous Sulfate (Ferrous Sulfate 324 Mg Tablet.) 324 mg PO DAILY [facility] Last Admin: 12/27/22 07:51 Dose: 324 mg Fluticasone Propionate (Fluticasone Propionate 100 Mcg Blst.W.Dev) 1 puff INHALE RBID [facility] Last Admin: 12/27/22 07:36 Dose: 1 puff Guaifenesin (Guaifenesin 100 Mg/5 Ml Liquid) 10 ml PO Q4H PRN PRN Reason: Cough Guaifenesin/Codeine Phosphate (Guaifen/Codeine Sf 200/20/10ml 10 Ml Liquid) 5 ml PO Q6H PRN PRN Reason: Cough Last Admin: 12/27/22 08:24 Dose: 5 ml Doxycycline Hyclate 100 mg/ (Sodium Chloride) 250 mls @ 166.67 mls/hr IV Q12H [facility] Last Infusion: 12/27/22 05:00 Dose: Infused Ceftriaxone Sodium 1 gm/ (Sodium Chloride) 50 mls @ 100 mls/hr IV Q24H [facility] Last Infusion: 12/27/22 08:27 Dose: Infused Loratadine (Loratadine 10 Mg Tablet) 10 mg PO DAILY [facility] Last Admin: 12/27/22 10:27 Dose: 10 mg Metoprolol Succinate (Metoprolol Succinate Er 25 Mg Tab.Er.24h) 75 mg PO DAILY [facility]; Protocol Last Admin: 12/27/22 07:51 Dose: 75 mg Omeprazole (Omeprazole 40 Mg Capsule.) 40 mg PO BID@0630,1630 [facility] Last Admin: 12/27/22 05:57 Dose: 40 mg Ondansetron HCl (Ondansetron Hcl 4 Mg/2 Ml Vial) 4 mg IVPUSH Q8H PRN PRN Reason: Nausea and Vomiting Pharmacy Consult (Consult Rx Perform Med Rec) 1 each MISCELLANE ONCE PRN PRN Reason: Consult order Prednisone (Prednisone 20 Mg Tablet) 40 mg PO DAILY [facility] Last Admin: 12/27/22 07:51 Dose: 40 mg Sodium Chloride (0.9 % Sodium Chloride Flush 3 Ml Syringe) 3 ml IVFLUSH QSHIFT [facility] Last Admin: 12/27/22 07:52 Dose: 3 ml Allergies Allergies Allergy/AdvReac Type Severity Reaction Status Date / Time No Known Allergies Allergy Verified 11/26/21 10:13 Assessment & Plan Assessment & Plan (1) Cognitive disorder: Status: Acute Code(s): F09 - Unspecified mental disorder due to known physiological condition Plan unclear what patient's baseline cognition is; his cognition is currently impaired. he was aware it is 2022, but he was unable to supply the month and guessed the day of the week was (it is friday). he guessed the season is spring (it is summer). he was informed it is december 27 and was di stracted with other conversation for a few minutes. pt was then unable to supply the accurate month, date, and day of the week, getting irritable and essentially rejecting the question. the medical question at hand, however, is regarding dispo to [facility] versus home. pt was able to engage in a hypothetical scenario wherein he went home and fell down and nobody was there to help him versus he went to [facility] and fell down and staff were present to be able to help him. he was able to recall the scenario after 5 minutes and adequately recapitulate the risks and benefits of each dispo option. despite his very clear memory/attention deficits, he was, regarding the particular medical decision at issue, adequately able to take in new information, manipulate it rationally, express a decision, and adhere to that decision (at least within the limited time frame of the interview). thus, this patient is assessed as having capacity to consent to transfer to [facility] at present. Total time managing care of this patient today __55__ minutes.
--- NOTE | 2022-12-27 13:45 | MHC.SL.SWA ---
Speech Pathologist Impression: Risk of Aspiration Due to: History of Pneumonia Dysphasia Diet Status: Recommend patient continue on Ground/Mechanical Altered with Thin Liquids, pills whole with puree or liquid. Liquid Consistency and Strategies for Safe Swallow: Liquid Intake Recommendation: Thin Liquid Intake Strategies: Small Sips Solid Food Consistency: Dietary Recommendations: Grnd/Mech Altered (NDD2) Additional Modifications to Solid Foods: Provide supervision during meals. Monitor for impulsivity or inhaling when eating/swallowing and discontinue with clinical signs of aspiration present. Oral Medication Intake: Whole with Puree Please contact the pharmacy regarding appropriate crushable or liquid drug formulations that are available whenever modified delivery is recommended. Compensatory Strategies and Precautions to be Taken for Safe Swallow: Sitting Upright (90 deg) Liquids from Cup Small Bites and Sips Alternate Liquids/Solids Supervision While Eating and Drinking for Safe Swallow: Total Supervision (1:1) Foods to Avoid: MIXED consistencies, difficult to chew solids Swallowing Recommended Treatments: Compens. Strategy Educat. Recommendation for Speech: Inpatient Speech Therapy Comment: Patient was seen during lunch for toleration of diet. Patient was seated in chair in room with tray on table in front of him, with sitter present and supervising him. Patient had already started meal, was making good progress with ground chicken, mashed potatoes and carrots. Patient stated The food here is good!' and had no hesitation or complaint about the change in consistency. Patient was observed managing both the puree and ground consistencies well. Patient is on nasal cannula, continued to have audible effortful breathing while eating, but mostly breathed through the nose v. orally as noted yesterday. Patient appears to be tolerating current diet well, with improved breath support during eating, and no clinical signs of aspiration. Recommend patient continue on Ground/Mechanical Altered with Thin Liquids, pills whole with puree or liquid. Frequency/Duration: M-F while inpatient. Date Range for Service Req: Timeline to reassess: Cyber Policy And Strategy Planner Clinican/Clinical Fellow: No Supervisory Statement: I have reviewed and agree with the student/clinical fellow's documentation: N/A Speech Language Pathologist: Marina Díaz M.A., CCC-INDUSTRIAL PHOTOGRAPHER
--- NOTE | 2022-12-27 14:29 | PM.DS ---
DS: Providers Provider Date of Service: 12/27/22 Date of admission: 12/22/22 15:37 Date of discharge: 12/27/22 Primary care physician: Favio Dowd MD Consults: 12/22/22 15:44 Consult to Gastroenterology Routine Consulting Provider: Michael Pritchett Reason for consultation: +BRBPR, anemia 12/22/22 18:39 Addiction Medicine Routine Consulting Provider: Addiction Covering Reason for consultation: cocaine abuse 12/23/22 08:30 Consult to Pulmonology Routine Consulting Provider: [facility] Reason for consultation: lung masses, consolidation ? need for broncho Has provider been notified: Yes 12/26/22 16:13 Consult to Psychiatry Routine Consulting Provider: Psych Covering Reason for consultation: mood disorder and capacity eval Has provider been notified: No 12/27/22 12:36 Consult for Sitter Routine Reason for consultation: behaviour disturbance Attending physician on discharge: Sheila Alcantara Discharging clinician: Sheila Alcantara DS: Diagnosis Discharge Diagnosis (1) Lung mass: Status: Acute (2) Cough: Status: Acute (3) Asthma: Status: Acute (4) Syncope and collapse: Status: Acute (5) Pneumonia: Status: Acute (6) Sepsis: Status: Acute (7) Anemia: Status: Acute DS: Summary Hospital Course Hospital Course: 72-year-old male with history of unspecified congestive heart failure, hypertension, paroxysmal atrial fibrillation not on anticoagulation, and mild persistent asthma presents to the ED from home where he resides by himself via EMS for evaluation of multiple syncopal episodes, cough, and shortness of breath.? He states for the last 4-5 days he has been coughing so hard that he has passed out and fallen to the ground.? He has been able to get himself up but over the last few days has become progressively weaker making this more difficult prompting him to call EMS for assistance. He denies any fevers at home, rigors, sore throat, nasal congestion, abd pain, diarrhea, constipation, nausea, vomiting, urinary symptoms, palpitations, orthopnea, PND, or chest pressure. He is endorsing associated pleuritic chest pain and diffuse body aches. He has also noted painless BRBPR ongoing about 3-4 weeks. Denies any history smoking. No etoh or illicit drug use. On arrival, EMS noted patient to be hypoxic to 88%.? He denies any fevers at home but on arrival to the ED, he was febrile and hypoxia persisted to is placed on 2 L supplemental O2 to maintain oximetry run 95%.? He has also been tachypneic up to 28.? No hypotension.? There is leukocytosis of 20.0.? Microcytic anemia with H/H 7.1/25.7% MCV 59.9.? Creatinine 1.04, BUN 17, sodium 128, potassium 4.8, chloride 93, CO2 25, bilirubin within normal limits, AST 111, ALT 111, alk-phos 229, total CK 46, troponin within normal limits. Lactic acid normal. Urinalysis unremarkable.? Stool occult blood positive.? Negative for influenza, RSV, COVID-19.? Head CT negative for any acute intracranial abnormality.? CXR is negative for any acute cardiopulmonary abnormality but did show chronic thickening of the bronchial geiger, mild atelectasis at the right lateral lung base and atelectasis or airspace disease in the medial left lung base.? Abdominal U.S. showing mild hepatomegaly with lobulated contour but no focal lesion and no evidence of acute cholecystitis.? CT of the abdomen/pelvis negative for any acute intra-abdominal abnormality it shows enlarged prostate.? Chest CT showing multiple lung masses/consolidations with central lucency and small bilateral pleural effusions as well as cardiomegaly.? In the ED, type and screen performed and patient transfused 1 unit packed red blood cells.? He was also treated with 2 g IV magnesium, 125 mg IV methylprednisolone, IV doxycycline, IV Rocephin, DuoNeb, and 1 L IV NS. Hospital course: Patient admitted for possible syncopal episode, cough and shortness of breath: Found to have acute hypoxemic respiratory failure and sepsis secondary to pneumonia-started on IV antibiotics, blood cultures sent. Chest imaging shows possible lung masses(please see chest imaging section). Patient also has asthma exacerbation-started on nebs and steroids seems to be improved significantly. Blood culture negative, leukocytosis resolved. No fever. Taper oxygen in the rehab. Complete antibiotic for pneumonia. Repeat chest imaging in 3-4 week to see resolution of pneumonia. For lung mass is patient is to follow up with Pulmonary for further management. As per patient daughter patient was told few years back that he had question of lung sports but he never followed up outpatient. In addition was patient was also found to have possible blood per rectum and acute blood loss anemia: Received PRBC 1 unit. H&H is stable in 7.5 range, started on iron as per GI, continue omeprazole. EGD/colon 09/04 showed benign gastric ulcer and esophagitis as well as colonic diverticulosis. moniter cbc outpatient. ct abd shows prostatomegaly: added flomax. Recurrent syncope with collapse and generalized weakness, likely related to coughing fit ,also cocaine use might also be contributing. No new episode of syncope in hospital. cocaine use : Patient was strongly advised to be seen for cocaine. So far did not use since hospitalized. plan: Complete p.o. antibiotic Ceftin and doxycycline for more days.Repeat chest imaging in 3-4 week to see resolution of pneumonia. For lung mass is patient is to follow up with Pulmonary for further management. Patient was strongly advised to abstain from cocaine. Monitor CBC for anemia, continue omeprazole. follow up with urology outpatient for prostatomegaly. Follow-up outpatient with PCP and Pulmonary. Above management discussed with patient and his daughter in detail length they both understand and in agreement with the above plan, time spent 50 minute. Time Spent with Patient Time attestation: Total time managing care of this patient today ____ minutes. Discharge coordination time: Greater than 30 minutes Quality: Safe Use of Opioids Does Pt have an Active Cancer Diagnosis on the Problem List?: No Quality: Stroke Does the patient have a stroke diagnosis?: No Physical Exam Vital Signs: Vital Signs: Last Vital Signs Temp 97.9 F 12/27/22 07:34 Pulse 74 12/27/22 11:56 Resp 20 12/27/22 11:56 BP 137/67 12/27/22 07:34 Pulse Ox 97 12/27/22 07:34 O2 Del Method Nasal Cannula 12/27/22 07:34 O2 Flow Rate 2 12/27/22 07:34 Oxygen Flow Rate 1 12/22/22 07:23 BMI result Body Mass Index 29.5 General: AO X 3, no acute distress Resp:? CTA bilateral CVS: S1,S2,RRR GI: +BS, NT, no distention Skin: No rash Neuro:? motor grossly intact Psych: appropriate affect DS: Data Data Completed and Pending Completed studies during hospitalization [Text1]: Procedures Excision of Duodenum, Via Natural or Artificial Opening Endoscopic, Diagnostic (08/29/21) Excision of Esophagogastric Junction, Via Natural or Artificial Opening Endoscopic, Diagnostic (08/29/21) Excision of Stomach, Pylorus, Via Natural or Artificial Opening Endoscopic, Diagnostic (08/29/21) Inspection of Lower Intestinal Tract, Via Natural or Artificial Opening Endoscopic (08/29/21) Transfusion of Nonautologous Red Blood Cells into Peripheral Vein, Percutaneous Approach (08/29/21) Labs on day of discharge: Laboratory Results - last 24 hr 12/27/22 07:47 Hgb 7.5 L Hct 28.1 L Imaging Chest x-ray: Radiologist's impression: ITS Impressions Chest X-Ray 12/22/22 07:49 IMPRESSION: * The current radiographic findings are similar compared to 09/01/2021. * There appears to be chronic thickening of the bronchial geiger, mild atelectasis at the right lateral lung base and atelectasis or airspace disease in the medial left lung base. Bronchitis or pneumonia would have to be excluded on the basis of clinical criteria. Knee X-Ray 12/22/22 07:49 IMPRESSION: Soft tissue swelling medially possibly bursal without effusion. No definite fracture. Advanced degenerative changes especially medial femoral joint compartment loose body. This is possibly on the basis of an old osteochondral injury medial femoral condyle. Head CT 12/22/22 09:09 IMPRESSION: No acute intracranial process seen Abdomen Ultrasound 12/22/22 10:14 IMPRESSION: Mild hepatomegaly with lobulated contour. No focal lesion seen. 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 Unremarkable CBD, right kidney and the visualized pancreas. Abdomen/Pelvis CT 12/22/22 13:12 IMPRESSION: 1. Multiple lung masses and consolidations with central lucency . 2. Small bilateral pleural effusion. 3. Cardiomegaly. 4. Prostatomegaly.. 5. Limited evaluation of mediastinum due to noncontrast technique. Chest CT 12/22/22 13:12 IMPRESSION: 1. Multiple lung masses and consolidations with central lucency . 2. Small bilateral pleural effusion. 3. Cardiomegaly. 4. Prostatomegaly.. 5. Limited evaluation of mediastinum due to noncontrast technique. Discharge Plan Discharge Anticipated Discharge Date/Time: 12/27/22 14:16 Patient Disposition: Xfer SNF Discharge Diagnosis: Lung mass, pneumonia, anemia, asthma exacerbation, GI bleed. Referrals: Favio Dowd MD [Primary Care Provider] - 1 Week Domo Soares MD [Physician] - 1 Week Discharge Medications: New cefuroxime axetil 500 mg tablet 500 mg PO BID Qty: 8 0RF doxycycline hyclate 100 mg capsule 100 mg PO DAILY Qty: 8 0RF ferrous sulfate 324 mg (65 mg iron) Tablet,Delayed Release (Dr/Ec) 324 mg PO DAILY Qty: 30 0RF omeprazole 20 mg capsule,delayed release(DR/EC) 20 mg PO BID Qty: 60 0RF tamsulosin [Flomax] 0.4 mg capsule 0.4 mg PO BEDTIME Qty: 30 0RF Continued furosemide 40 mg tablet 1 tab PO DAILY metoprolol succinate 50 mg tablet extended release 24 hr 75 mg PO DAILY Patient Comments: MAY TAKE 75MG; WILL FOLLOW UP WITH MD IN THE AM lisinopril 5 mg tablet 1 tab PO DAILY fluticasone propionate [Flovent HFA] 110 mcg/actuation HFA aerosol inhaler 1 puff PO BID omeprazole 40 mg capsule,delayed release(DR/EC) 40 mg PO DAILY@0630 albuterol sulfate [Ventolin HFA] 90 mcg/actuation HFA aerosol inhaler 2 puff inhalation Q4H Discharge Orders: Discharge Order (Routine); Ordered 12/27/22 Ordered By: Sheila Alcantara Diet: Advance to usual diet Activity on Discharge: As tolerated Stand Alone Forms: Patient Portal Discharge page Care Plan Goals: Patient admitted for possible syncopal episode, cough and shortness of breath: Found to have sepsis secondary to pneumonia-started on IV antibiotics, blood cultures sent. Chest imaging shows possible lung masses. Patient also has asthma exacerbation-started on nebs and steroids seems to be improved significantly. For lung mass is patient is to follow up with Pulmonary for further management. Complete antibiotic for pneumonia. Repeat chest imaging in 3-4 week to see resolution of pneumonia. In addition was patient was also found to have possible blood per rectum and acute blood loss anemia: Received PRBC 1 unit. H&H is stable in 7.5 range, started on iron as per GI, continue omeprazole. EGD/colon 09/04 showed benign gastric ulcer and esophagitis as well as colonic diverticulosis. moniter cbc outpatient. Recurrent syncope with collapse and generalized weakness, likely related to coughing fit ,also cocaine use might also be contributing. No new episode of syncope in hospital. Health Concerns: As above. Plan of Treatment: As above. Assessment: As above.
--- NOTE | 2022-12-27 15:03 | MHC.CM.PN ---
PT READY TO DC HE IS AWARE STR HAS BEEN RECOMMENDED AND IS AGREEABLE [facility] HAS OFFERED A BED AND IS PTS PREFERRED FACILITY PER HIS REPORT HE WILL DC TO [facility] TODAY AT 1600 HOURS VIA [facility]
[2022-12-27] MEDS: Doxycycline Monohydrate 100 MG CAPSULE PO (15:22)
[2022-12-27] MEDS: guaiFENesin 100 MG/5 ML LIQUID 10 ML PO (15:22)
[2022-12-27 20:59] LABS: Strep Pneumo Ag urine Not Detected (Not Detected)
[2022-12-29 05:24] LABS: Legionella Ag Urine Not Detected (Not Detected)
[2022-12-29 14:32] LABS: Anti Nuclear Antibody Screen NEGATIVE (NEGATIVE)
== END 2022-12-27 16:58 | disposition skilled nursing facility (03) | DRG 871 ==
LOC: HO.ED 14:32 → HO.EDOVER 15:58 → HO.S3 19:30
PROVIDERS: Hospitalist; Internal Medicine; Admitting Provider Physician Assistant; Emergency Provider Emergency Medicine; PCP Family Medicine; Visit Provider Internal Medicine
DX: A41.9 Sepsis, unspecified organism (principal); J18.9 Pneumonia, unspecified organism; J96.01 Acute respiratory failure with hypoxia; J45.31 Mild persistent asthma with (acute) exacerbation; D62 Acute posthemorrhagic anemia; K62.5 Hemorrhage of anus and rectum; C34.81 Malignant neoplasm of overlapping sites of right bronchus and lung; F14.10 Cocaine abuse, uncomplicated; F09 Unspecified mental disorder due to known physiological condition; I11.0 Hypertensive heart disease with heart failure; I48.0 Paroxysmal atrial fibrillation; I50.9 Heart failure, unspecified; D50.9 Iron deficiency anemia, unspecified; Z20.822 Contact with and (suspected) exposure to COVID-19; Z79.51 Long term (current) use of inhaled steroids; Z79.899 Other long term (current) drug therapy
CPT/HCPCS: 0241U; 36415; 70450; 71045; 71250; 73564; 74176; 76705; 80048; 80053; 80076; 80307; 81001; 81003; 82272; 82550; 82728; 82784; 82785; 82803; 83540; 83605; 83690; 83880; 84484; 85014; 85018; 85025; 85027; 85652; 86038; 86200; 86850; 86900; 86901; 86923; 87040; 87389; 87449; 87899; 92526; 92610; 93005; 94640; 97116; 97162; 99285; J0696; J1650; J1940; J2920; J2930; J3475; P9016

== ENCOUNTER → 2022-12-22 15:37 | Outpatient (BNV) | payer MEDICARE, MEDICAID, SELFPAY | PROVIDERS: Admitting Provider Physician Assistant; Emergency Provider Emergency Medicine; PCP Family Medicine; Visit Provider Nurse Practitioner Psychiatric/Mental Health | DX: F09 Unspecified mental disorder due to known physiological condition (principal) | CPT/HCPCS: 99222; 99499 ==

== ENCOUNTER → 2022-12-22 15:37 | Outpatient (BNV) | payer MEDICARE, MEDICAID, SELFPAY | PROVIDERS: Admitting Provider Physician Assistant; Emergency Provider Emergency Medicine; PCP Family Medicine; Visit Provider Physician Assistant | DX: R91.8 Other nonspecific abnormal finding of lung field (principal); R05.9 Cough, unspecified; J45.909 Unspecified asthma, uncomplicated; R55 Syncope and collapse; J18.9 Pneumonia, unspecified organism; A41.9 Sepsis, unspecified organism; D64.9 Anemia, unspecified | CPT/HCPCS: 99223; 99231; 99232; 99239 ==

== ENCOUNTER → 2022-12-22 15:37 | Outpatient (BNV) | payer MEDICARE, MEDICAID, SELFPAY | PROVIDERS: Admitting Provider Physician Assistant; Emergency Provider Emergency Medicine; PCP Family Medicine; Visit Provider Hospitalist | DX: J18.9 Pneumonia, unspecified organism (principal); J45.909 Unspecified asthma, uncomplicated; R05.9 Cough, unspecified; R91.8 Other nonspecific abnormal finding of lung field | CPT/HCPCS: 99232 ==

== ENCOUNTER 2023-01-15 10:13 | Emergency (ER) | payer MEDICARE, MEDICAID, SELFPAY ==
--- NOTE | ~2023-01-15 | CT_ITS ---
EXAMINATION: CT ORBIT WITH CONTRAST CLINICAL INFORMATION: Bilateral periorbital cellulitis. COMPARISON: CT head 12/22/2022. TECHNIQUE: Sensor Technician images were obtained. CT imaging of the orbits was performed after the intravenous administration of 85 mL Omnipaque 350. Data was reformatted into multiplanar images at the acquisition workstation. This CT examination was performed using dose optimization techniques as appropriate, variously including the following: *Automated exposure control *Adjustment of mA and/or kV according to patient size (this includes techniques or standardized protocols for targeted exams where dose is matched to indication/reason for exam; i.e. extremities or head) *Use of iterative reconstruction technique DLP: 223 mGy-cm FINDINGS: There is severe paranasal sinus disease. 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 This finding is well depicted on axial image 21 of 39 series 5 and on sagittal image 45 of 81 series 8. There is associated inflammatory stranding within the subcutaneous soft tissues of the frontal scalp and periorbital tissues. There is also dehiscence of the lamina papyracea bilaterally best visualized on coronal image 22 of 71 series 10. There is however no abnormal edema or inflammatory stranding within the retrobulbar fat. Orbital floors are grossly intact. Orbital apices are unremarkable. There is circumferential mucosal thickening and small bilateral layering fluid within both maxillary sinuses. A total opacification of the ethmoid air cells and sphenoid sinus. The right sphenoid sinus cavity is completely opacified and atelectatic. There is circumferential sclerotic mucoperiosteal changes within both maxillary bones and the sphenoid body. There is a perforation of the membranous nasal septum measuring approximately 1 cm in diameter. No abnormal inflammatory stranding within the retromaxillary fat. Limited visualization of the intracranial anatomy reveals no abnormal finding. Specifically the skull base is intact and there is no evidence of intracranial disease. No intracranial mass effect or hydrocephalus. 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 No abnormal edema or inflammatory stranding within the retrobulbar fat.
[2023-01-15 10:23] VITALS: BP 160/60; PULSE 70; O2SAT 98
[2023-01-15 10:24] VITALS: BP 147/56; PULSE 64; RESP 17; TEMP 36.6; O2SAT 98; BMI 26.2
--- NOTE | 2023-01-15 10:31 | ED_ITS ---
HPI - General Adult General Chief complaint: Allergic Reaction Stated complaint: [facility]INE EYE/FOREHEAD SWELLING,? ALLERGIC RXN Time Seen by Provider: 01/15/23 10:21 Source: patient and EMS Mode of arrival: EMS Limitations: no limitations History of Present Illness HPI narrative: 72-year-old male came in by ambulance for evaluation of facial swelling. Patient with history of COPD with baseline wheezing sent by caregiver via ambulance for evaluation of facial swelling started 2 days ago that is getting worse today, patient declined any discharge from the eye, no fever, no chills, no history of using new medication or drugs, no trauma to the face, no change in his normal daily routine. No lip or tongue swelling, no SOB, no throat swelling or tingling. Related Data Home Medications Medication Instructions Recorded Confirmed fluticasone propionate 110 1 puff PO BID 08/21/21 01/15/23 mcg/actuation HFA aerosol inhaler (Flovent HFA) furosemide 40 mg tablet 1 tab PO DAILY 08/21/21 01/15/23 lisinopril 5 mg tablet 1 tab PO DAILY 08/21/21 01/15/23 metoprolol succinate 50 mg 75 mg PO DAILY 08/21/21 01/15/23 tablet,extended release 24 hr albuterol sulfate 90 mcg/actuation 2 puff inhalation Q4H 11/26/21 01/15/23 aerosol inhaler (Ventolin HFA) omeprazole 40 mg capsule,delayed 40 mg PO DAILY@0630 12/22/22 01/15/23 release metoprolol succinate 25 mg 25 mg PO DAILY 01/15/23 01/15/23 tablet,extended release 24 hr Previous Rx's Medication Instructions Recorded tamsulosin 0.4 mg capsule (Flomax) 0.4 mg PO BEDTIME #30 caps 12/27/22 Allergies Allergy/AdvReac Type Severity Reaction Status Date / Time No Known Allergies Allergy Verified 11/26/21 10:13 Review of Systems Review of Systems: All other systems are reviewed and are negative Constitutional: Reports as per HPI and Reports no additional constitutional complaints Eyes: Reports as per HPI and Reports no additional eye complaints Reports system reviewed and no additional complaints, except as documented Cardiovascular: Reports as per HPI and Reports no additional cardiovascular complaints Respiratory: Reports as per HPI and Reports no additional respiratory complaints Gastrointestinal: Reports as per HPI and Reports no additional gastrointestinal complaints Genitourinary: Reports no additional female genitourinary complaints Musculoskeletal: Reports no additional musculoskeletal complaints Skin/Breast: Reports system reviewed and no additional complaints, except as docu Psychiatric: Reports no additional psychiatric complaints Endocrine: Reports no additional endocrine complaints Hematologic/Lymphatic: Reports no additional hematologic/lymphatic complaints Allergic/Immunologic: Reports no additional allergic/immunologic complaints Reports system reviewed and no additional complaints, except as documented and Reports Abnormal speech present [facility] Past Medical History Medical History Afib Asthma CHF (congestive heart failure) Cough GERD (gastroesophageal reflux disease) Lung mass Surgical History No pertinent past surgical history Family History Family History Brother Pancreatic cancer Other No family history of coronary artery disease Social History Social History Household Members: None Housing: House Do you presently have visiting nurse or other home services: No Alcohol intake: never Patient Tobacco Use Status: Never used Tobacco Substance Use Type: Former Substance User Advance Directives: Yes Advance Directives on File: Yes Advance Directives Date on File: 08/21/21 service: No Current occupational status: retired Physical Exam ED Vital Signs: Vital Signs - 24 hr 01/15/23 10:24 01/15/23 13:23 01/15/23 13:38 Temperature 98 F 98 F Pulse Rate 64 63 75 Respiratory Rate 17 18 17 Blood Pressure 147/56 H 148/60 H 134/70 Pulse Oximetry 98 97 97 Oxygen Delivery Method Room Air Room Air Room Air 01/15/23 15:29 Temperature 97.5 F Pulse Rate 72 Respiratory Rate 20 Blood Pressure 154/51 H Pulse Oximetry 95 Oxygen Delivery Method Room Air BMI result Body Mass Index 26.2 Vital signs have been reviewed as appeared to be correct. Blood pressure normal. Heart rate normal. Respiration rate normal. Temperature normal. Oxygen saturation normal. Appearance: Alert. Oriented X3. No acute distress. Head: Bilateral periorbital/forehead swelling, mild redness. Eyes: PERRLA. EOMI. Conjunctiva and sclera normal. Eyelids normal. ENT: TM's Normal. Pharynx normal. Uvula midline. Moist mucous membranes. No trismus noted. No drooling noted. No muffled voice noted. No stridor, patent airway. Neck: Normal inspection. Neck supple. FROM. No adenopathy. Thyroid Normal. No meningeal signs. No neck mass noted. CVS: Normal heart rate and rhythm. Heart sound normal. No murmurs noted. Pulses normal throughout. Respiratory: No respiratory distress. Painless inspiration. Breath sounds normal. No wheezes/rales/rhonchi noted. Chest nontender. No accessory muscle usage noted or decreased air movement noted. Abdomen: Soft and nontender. Bowel sounds normal in all 4 quadrants. No distention noted. No organomegaly noted. No visible injury noted. Back: No CVA tenderness. Full range of motion noted. Skin: Skin warm and dry. Normal skin color. Normal skin turgor. No rashes/lesions/lacerations noted. Extremities: No lower extremity edema. Extremities exhibit normal range of motion. Extremities nontender. Neuro: Oriented X 3. Cranial nerve exam: II-XII are grossly intact No motor deficit. No sensory deficit. Reflexes normal. 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 Case discussed with our hospitalist to decline admitting, unsuccessful attempt to transfer to [facility] was closed for transfer, patient has been accepted to [facility] patient was accepted by Dr. Luis. Medications Administered Discontinued Medications Generic Name Dose Route Start Last Admin Trade Name Freq PRN Reason Stop Dose Admin Diphenhydramine HCl 25 mg 01/15/23 10:29 01/15/23 10:44 Diphenhydramine Hcl 50 Mg/Ml Vial IVPUSH 01/15/23 10:30 25 mg ONCE ONE Administration Famotidine 20 mg 01/15/23 10:29 01/15/23 10:42 Famotidine/Pf 20 Mg/2 Ml Vial IVPUSH 01/15/23 10:30 20 mg ONCE ONE Administration Piperacillin Sod/Tazobactam 50 mls @ 100 mls/hr 01/15/23 14:56 01/15/23 15:25 Sod 3.375 gm/ Sodium Chloride IV 01/15/23 15:25 100 mls/hr ONCE ONE Administration Iohexol 100 ml 01/15/23 13:06 01/15/23 13:06 Iohexol 350 Mg/Ml 100 Ml Infus..Btl IV 01/15/23 13:07 85 ml ONCE ONE Administration Methylprednisolone Sodium Succinate 125 mg 01/15/23 10:29 01/15/23 10:44 Methylprednisolone Sod Succ 125 Mg/2 Ml Vial IVPUSH 01/15/23 10:30 125 mg ONCE ONE Administration Morphine Sulfate 1 mg 01/15/23 10:29 01/15/23 10:45 Morphine Sulfate 2 Mg/Ml Cartridge IVPUSH 01/15/23 10:30 1 mg ONCE ONE Administration Protocol Morphine Sulfate 2 mg 01/15/23 13:08 01/15/23 13:23 Morphine Sulfate 2 Mg/Ml Cartridge IVPUSH 01/15/23 13:09 2 mg ONCE ONE Administration Protocol Medical Decision Making Differential Diagnosis Differential Diagnoses: The differential diagnosis associated with the present ation includes (Periorbital cellulitis, orbital cellulitis, sinusitis, pott's puffy tumor, sepsis, septic shock, electrolyte abnormality, severe anemia.) Admission/Observation Consideration of admission/observation: Escalation of care including admiss ion/observation considered Consult Healthcare Provider Management of the patient was discussed with: [employer] (Dr. Luis) Lab Data MDM Lab Attestation statement: I reviewed the patient's lab results. 01/15/23 11:58 01/15/23 11:58 Labs: Lab Results 01/15/23 01/15/23 01/15/23 Range/Units 11:44 11:58 11:58 WBC 12.7 H (4.8-10.8) X10*3/uL RBC 4.27 L (4.60-5.80) X10*6/uL Hgb 8.5 L (14.0-18.0) g/dl Hct 30.2 L (42.0-52.0) % MCV 70.7 L (80.0-98.0) fL MCH 19.9 L (27.0-33.0) pg MCHC 28.1 L (31.0-36.0) g/dl RDW 29.0 H (11.0-16.0) % Plt Count 445 H D (160-400) X10*3/uL MPV 8.9 L (9.4-12.4) fL Immature Gran % (Auto) 0.4 (0.0-0.4) % Neut % (Auto) 80.2 H (45-73) % Lymph % (Auto) 8.0 L (20-40) % [place] % (Auto) 6.1 (2-11) % Eos % (Auto) 4.9 H (0-4) % Baso % (Auto) 0.4 (0-2) % Lymph # (Auto) 1.0 L (1.2-4.9) X10*3/uL [place] # (Auto) 0.8 (0.1-1.2) X10*3/uL Eos # (Auto) 0.6 H (0.0-0.4) X10*3/uL Baso # (Auto) 0.1 (0.0-0.2) X10*3/uL Abs Immat Gran (auto) 0.05 H (0.00-0.03) X10*3/uL Absolute Neuts (auto) 10.2 H (2.0-8.3) x10*3/uL Absolute Nucleated RBC 0.000 (0.0-0.012) X10*3/uL Nucleated RBC % (auto) 0.0 (0.0-0.2) /100WBC Sodium 140 (135-145) mmol/L Potassium 3.1 L D (3.3-5.1) mmol/L Chloride 102 (96-108) mmol/L Carbon Dioxide 25 (22-29) mmol/L Anion Gap 16 (12-20) BUN 15 (9-16) mg/dL Creatinine 0.80 (0.5-1.4) mg/dL Estim Creat Clear Calc 78.0 Estimated GFR > 60 Random Glucose 86 (60-115) mg/dL Lactic Acid 1.9 (0.5-2.0) mmol/L Calcium 8.4 (8.4-10.2) mg/dL Independent Interpretation I performed an independent interpretation of an: CT Scan (facial ct:There is severe paranasal sinus disease with dehiscence of the outer table of the frontal bone and a peripherally enhancing subperiosteal fluid collection that bulges into the subcutaneous soft tissues of the frontal scalp consistent with a Pott's puffy tumor. 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 Prescriptions: No Action furosemide 40 mg tablet 1 tab PO DAILY metoprolol succinate 50 mg tablet extended release 24 hr 75 mg PO DAILY Patient Comments: MAY TAKE 75MG; WILL FOLLOW UP WITH MD IN THE AM lisinopril 5 mg tablet 1 tab PO DAILY fluticasone propionate [Flovent HFA] 110 mcg/actuation HFA aerosol inhaler 1 puff PO BID omeprazole 40 mg capsule,delayed release(DR/EC) 40 mg PO DAILY@0630 tamsulosin [Flomax] 0.4 mg capsule 0.4 mg PO BEDTIME Qty: 30 0RF metoprolol succinate 25 mg tablet extended release 24 hr 25 mg PO DAILY albuterol sulfate [Ventolin HFA] 90 mcg/actuation HFA aerosol inhaler 2 puff inhalation Q4H
[2023-01-15] MEDS: Famotidine/PF 20 MG/2 ML VIAL IVPUSH (10:42)
[2023-01-15] MEDS: diphenhydrAMINE HCL 50 MG/ML VIAL 25 MG IVPUSH (10:44)
[2023-01-15] MEDS: methylPREDNISolone Sod Succ 125 MG/2 ML VIAL IVPUSH (10:44)
[2023-01-15] MEDS: Morphine Sulfate 2 MG/ML CARTRIDGE 1 MG IVPUSH (10:45)
[2023-01-15 12:03] LABS: MANUAL DIFF FLAG NO
[2023-01-15 12:06] LABS: Basophils Absolute Auto 0.1 X10*3/uL (0.0-0.2); Basophils Percent Auto 0.4 % (0-2); Eosinophils Absolute Auto 0.6 X10*3/uL (0.0-0.4); Eosinophils Percent Auto 4.9 % (0-4); Hematocrit 30.2 % (42.0-52.0); Hemoglobin 8.5 g/dl (14.0-18.0); Imm Gran Abs Auto 0.05 X10*3/uL (0.00-0.03); Imm Gran Pct Auto 0.4 % (0.0-0.4); Mean Corpuscular HGB Conc 28.1 g/dl (31.0-36.0); Mean Corpuscular Hemoglobin 19.9 pg (27.0-33.0); Mean Corpuscular Volume 70.7 fL (80.0-98.0); Mean Platelet Volume 8.9 fL (9.4-12.4); Monocytes Absolute Auto 0.8 X10*3/uL (0.1-1.2); Monocytes Percent Auto 6.1 % (2-11); Neutrophils Absolute Auto 10.2 x10*3/uL (2.0-8.3); Neutrophils Percent Auto 80.2 % (45-73); Platelet Count 445 X10*3/uL (160-400); Red Blood Count 4.27 X10*6/uL (4.60-5.80); White Blood Count 12.7 X10*3/uL (4.8-10.8)
[2023-01-15 12:06] LABS: Lactic Acid 1.9 mmol/L (0.5-2.0)
[2023-01-15 12:28] LABS: Anion Gap 16 (12-20); Blood Urea Nitrogen 15 mg/dL (9-16); Calcium 8.4 mg/dL (8.4-10.2); Carbon Dioxide 25 mmol/L (22-29); Chloride 102 mmol/L (96-108); Estimated Glomerular Filt Rate > 60; Glucose Random 86 mg/dL (60-115); Potassium 3.1 mmol/L (3.3-5.1); Sodium 140 mmol/L (135-145)
[2023-01-15] MEDS: iohexoL 350 MG/ML 100 ML INFUS..BTL IV (13:06)
[2023-01-15 13:23] VITALS: BP 148/60; PULSE 63; RESP 18; TEMP 36.6; O2SAT 97
[2023-01-15] MEDS: Morphine Sulfate 2 MG/ML CARTRIDGE IVPUSH (13:23)
[2023-01-15 13:38] VITALS: BP 134/70; PULSE 75; RESP 17; O2SAT 97
[2023-01-15] MEDS: Piperacillin Sodium/Tazobactam 3.375 GM in 0.9 % Sodium Chloride 50 ML IV (15:25)
[2023-01-15 15:29] VITALS: BP 154/51; PULSE 72; RESP 20; TEMP 36.4; O2SAT 95
--- NOTE | 2023-01-15 17:00 | PC.NURSE ---
this rn assumed care of pt @ 1500. pt medicated according to mar. pt reports unsure of where wallet was placed unsure if he brought wallet with him, unsure if if was left on ambulance or other room. this rn made security and chargemaster analyst aware.
--- NOTE | 2023-01-15 19:13 | PC.NURSE ---
this rn called rn to rn report to scott [facility]ata. ems report given prior to transport
== END 2023-01-15 19:24 | disposition short-term general hospital (02) ==
PROVIDERS: Emergency Provider Emergency Medicine; PCP Family Medicine
DX: J32.9 Chronic sinusitis, unspecified (principal); M86.8X8 Other osteomyelitis, other site; R22.9 Localized swelling, mass and lump, unspecified; Z79.899 Other long term (current) drug therapy
CPT/HCPCS: 36415; 70481; 80048; 83605; 85025; 87040; 96365; 96375; 96376; 99285; J1200; J2270; J2543; J2930; Q9967